=== PATIENT | female | born 1950 | race Caucasian/White ===

== ENCOUNTER → 2020-04-21 08:16 | Outpatient (CLI) | payer MEDICARE, OTHER, SELFPAY ==
--- NOTE | ~2020-04-21 | MM_ITS ---
EXAMINATION: MM screening [facility] w jaswant HISTORY: Screening TECHNIQUE: Craniocaudal and mediolateral oblique 3-D tomosynthesis images were obtained and synthetic 2-D images were generated. CAD analysis was submitted and interpreted. COMPARISON: Comparison to multiple prior studies sequentially, with oldest reviewed study dated 07/05. BREAST PARENCHYMAL COMPOSITION: There are scattered areas of fibroglandular density. FINDINGS: There is no evidence of suspicious mass, calcification, or architectural distortion to sugg est malignancy in either breast. There has been no suspicious interval change. IMPRESSION: 1. No mammographic evidence of malignancy. 2. Recommend routine screening mammography in one year. BI-RADS Category 1: Negative Reviewed, dictated and finalized at location A. [employer]
== END ==
PROVIDERS: PCP Family Medicine; Visit Provider Family Medicine
DX: Z12.31 Encounter for screening mammogram for malignant neoplasm of breast (principal)
CPT/HCPCS: 77063; 77067

== ENCOUNTER 2020-06-12 17:15 | Outpatient (CLI) | payer MEDICARE, OTHER, SELFPAY | END 2020-06-12 17:16 | disposition home or self-care (01) | LOC: ANHCOVIDVC 17:15 | PROVIDERS: PCP Family Medicine | DX: Z23 Encounter for immunization (principal) | CPT/HCPCS: 0001A; 91300 ==

== ENCOUNTER 2020-07-03 17:16 | Outpatient (CLI) | payer MEDICARE, OTHER, SELFPAY | END 2020-07-03 17:17 | disposition home or self-care (01) | LOC: ANHCOVIDVC 17:16 | PROVIDERS: PCP Family Medicine | DX: Z23 Encounter for immunization (principal) | CPT/HCPCS: 0002A; 91300 ==

== ENCOUNTER → 2021-07-11 16:19 | Outpatient (CLI) | payer MEDICARE, OTHER, SELFPAY ==
--- NOTE | ~2021-07-11 | MM_ITS ---
EXAMINATION: MM screening [facility] BI w jaswant HISTORY: Screening TECHNIQUE: Craniocaudal and mediolateral oblique 3-D tomosynthesis images were obtained and synthetic 2-D images were generated. CAD analysis was submitted and interpreted. COMPARISON: Comparison to multiple prior studies sequentially, with oldest reviewed study dated 07/05. BREAST PARENCHYMAL COMPOSITION: There are scattered areas of fibroglandular density. FINDINGS: There is no evidence of suspicious mass, calcification, or architectural distortion to sugg est malignancy in either breast. There has been no suspicious interval change. IMPRESSION: 1. No mammographic evidence of malignancy. 2. Recommend routine screening mammography in one year. BI-RADS Category 1: Negative Reviewed, dictated and finalized at location [facility].
== END ==
PROVIDERS: PCP Family Medicine; Visit Provider Family Medicine
DX: Z12.31 Encounter for screening mammogram for malignant neoplasm of breast (principal)
CPT/HCPCS: 77063; 77067

== ENCOUNTER 2021-08-18 09:15 | Emergency (ER) | payer MEDICARE, OTHER, SELFPAY ==
--- NOTE | ~2021-08-18 | XR_ITS ---
XR ribs RT 2V w CXR 2V DATE: 08/18/2021 09:43 INDICATION: Fall 4 days ago. New onset of cough, pain. Bruising. TECHNIQUE: 2 view chest. 3 views of right ribs. COMPARISON: None FINDINGS: Posterolateral mildly displaced right eighth and ninth rib fractures and nondisplaced poste rolateral right 10th rib fracture. There is right basilar infiltrate/atelectasis and mild right pleural effusion. No pneumothorax. The lungs otherwise appear clear. No left pleural effusion. Normal heart size. Aortic calcification and mild tortuosity. Diffuse osteopenia. Levoscoliosis and degenerative spurring of the thoracic spine. Osteophyte is at the glenohumeral joints. Synovial osteochondromatosis of the right shoulder. IMPRESSION: Posterolateral right eighth, ninth and 10th rib fractures Mild right basilar infiltrate or atelectasis and small right pleural effusion; no pneumothorax Reviewed, dictated and finalized at location A.
[2021-08-18 09:26] VITALS: BP 155/70; PULSE 85; RESP 16; TEMP 36.9; O2SAT 97
--- NOTE | 2021-08-18 10:05 | ED.FALL ---
HPI - Fall General Chief Complaint: Fall Stated Complaint: fall 4 days ago, rib pain Time Seen by Provider: 08/18/21 09:56 History of Present Illness HPI Narrative: 70-year-old female presents to the emergency room with complaints of a right lateral chest wall pain following a mechanical fall down a stair. Patient states 3 days ago she was walking down the stairs when she lost her footing, landing on her right lateral chest wall. Patient states the pain is worse when she is taking a deep breath and moving around. Denies shortness of breath or difficulty breathing. Related Data Home Medications Medication Instructions Recorded Confirmed lysine 500 mg tablet 500 mg PO DAILY 02/24/19 04/10/21 multivit with 1 tablet PO DAILY 02/24/19 04/10/21 axbhlrur-gfxa-TT-lutein 8 mg iron-400 mcg-300 mcg tablet fluticasone propionate 50 1 spray INTRANASAL BID 10/30/20 04/10/21 mcg/actuation nasal spray,suspension cholecalciferol (vitamin D3) 50 4,000 unit PO DAILY cap 04/10/21 04/10/21 mcg (2,000 unit) capsule Allergies Allergy/AdvReac Type Severity Reaction Status Date / Time No Known Allergies Allergy Verified 08/18/21 10:12 Review of Systems Review of Systems: CONSTITUTIONAL: Denies fever, chills, or sweats. EYES: Denies visual changes, redness, or discharge. ENT: Denies rhinorrhea, congestion, sore throat, or otalgia. CARDIOVASCULAR: Denies chest pain, palpitations, or edema. RESPIRATORY: Denies cough or dyspnea. GASTROINTESTINAL: Denies abdominal pain, nausea, vomiting, or diarrhea. GENITOURINARY: Denies dysuria or hematuria. SKIN: Denies rash or itching. MUSCULOSKELETAL: Reports right lateral rib pain NEUROLOGIC: Denies headache, numbness, dizziness, or weakness. PSYCHIATRIC: Denies anxiety or depression. [facility] Past Medical History Medical History Acute non-recurrent maxillary sinusitis Adult BMI 27.0-27.9 kg/sq m Breast cancer screening by mammogram Normal mammogram 07/11/2021. Chronic anxiety Contact dermatitis due to plant Essential (primary) hypertension Family History Family History Sibling Diabetes mellitus Patient's sister is in good health Mother Patient's mother is , Onset Age: 81 Family history of malignant neoplasm of breast Father Family history of cardiovascular disease, Onset Age: 67 Hypertension Acute myocardial infarction Social History Social History Smoking status: Never smoker Alcohol intake: never Substance use: never Substance use type: does not use Exam Narrative: GENERAL: Well-appearing, well-nourished, and in no acute distress. HEAD: Normocephalic, atraumatic. EYES: PERRLA and EOMI. CHEST: Clear to auscultation. No respiratory distress. No wheezes rales or rhonchi. Tenderness over the right posterior lateral eighth through 10th ribs. No ecchymosis. No flail chest. HEART: Regular rate and rhythm. No murmur heard. Normal peripheral pulses. ABDOMEN: Soft, nontender, nondistended, normal active bowel sounds. EXTREMITIES: Normal range of motion. No edema. SKIN: Warm, dry, no rash. NEURO: No focal deficits. Alert and oriented x3. PSYCH: Normal mood and affect. Course Vital Signs Vital signs: Vital Signs Temperature 36.9 C 08/18/21 09:26 Pulse Rate 85 08/18/21 09:26 Respiratory Rate 16 08/18/21 09:26 Blood Pressure 155/70 H 08/18/21 09:26 Pulse Oximetry 97 08/18/21 09:26 Temperature 36.9 C 08/18/21 09:26 Pulse Rate 85 08/18/21 09:26 Respiratory Rate 16 08/18/21 09:26 Blood Pressure 155/70 H 08/18/21 09:26 Pulse Oximetry 97 08/18/21 09:26 Discharge Plan Discharge Clinical Impression: Multiple rib fractures Qualifiers: Encounter type: initial encounter Fracture type: closed Laterality: right Qualified Code(s): S22.41XA - Multiple fract
== END 2021-08-18 10:22 | disposition home or self-care (01) ==
PROVIDERS: Emergency Provider Nurse Practitioner Family; PCP Family Medicine
DX: S22.41XA Multiple fractures of ribs, right side, initial encounter for closed fracture (principal); I10 Essential (primary) hypertension; F41.9 Anxiety disorder, unspecified; W10.9XXA Fall (on) (from) unspecified stairs and steps, initial encounter
CPT/HCPCS: 71046; 71100; 99283

== ENCOUNTER 2021-11-29 01:42 | Day surgery (SDC) | payer MEDICARE, OTHER, SELFPAY ==
[2021-11-14 13:46] VITALS: BMI 26.6
--- NOTE | 2021-11-28 16:18 | PM.HPGS ---
History of Present Illness History of Present Illness Consent: Risks, benefits, and alternatives have been discussed and questions answered. Patient agrees to proceed with procedure. Chief complaint: hx colon ca Narrative: Rowena Paez is a 71 year old female referred for colon cancer screening. She was diagnosed with colon cancer about 20 years ago. Review of Systems Review of Systems: All systems reviewed & are unremarkable except as noted in HPI and below PMFSH Past Medical History Medical History Acute non-recurrent maxillary sinusitis Adult BMI 27.0-27.9 kg/sq m BMI 26.0-26.9,adult Breast cancer screening by mammogram Normal mammogram 07/11/2021. Chronic anxiety Contact dermatitis due to plant Essential (primary) hypertension Multiple fractures of ribs of right side (08/15/21) right posterior lateral rib fractures 8, 9, 10 08/15/2021. ER 08/19/2021. Overweight (BMI 25.0-29.9) Family History Family History Sibling Diabetes mellitus Patient's sister is in good health Mother Patient's mother is , Onset Age: 81 Family history of malignant neoplasm of breast Father Family history of cardiovascular disease, Onset Age: 67 Hypertension Acute myocardial infarction Social History Social History Smoking status: Never smoker Alcohol intake: never Substance use: never Substance use type: does not use Living arrangements: with family Spiritual care concerns: No Meds Home Medications and Allergies Home Medications Medication Instructions Recorded Confirmed Type lysine 500 mg tablet (L-Lysine) 500 mg PO DAILY 02/24/19 11/29/21 History multivit with 1 tablet PO DAILY 02/24/19 11/29/21 History uvtxxqwq-amcs-DI-lutein 8 mg iron-400 mcg-300 mcg tablet (Centrum Silver Women) bupropion HCl 150 mg 24 hr tablet, 150 mg PO QAM #90 tabs 01/29/21 11/29/21 Rx extended release (Wellbutrin XL) escitalopram oxalate 10 mg tablet 10 mg PO DAILY #90 tabs 01/29/21 11/29/21 Rx (Lexapro) cholecalciferol (vitamin D3) 50 4,000 unit PO DAILY 04/10/21 11/29/21 History mcg (2,000 unit) capsule quetiapine 25 mg tablet (Seroquel) 25 mg PO QHS #90 tabs 06/04/21 11/29/21 Rx pravastatin 40 mg tablet 40 mg PO DAILY #90 tabs 07/28/21 11/29/21 Rx triamcinolone acetonide 55 mcg 1 spray intranasal DAILY 10/22/21 11/29/21 History nasal spray aerosol (Nasacort Allergy) Allergies Allergy/AdvReac Type Severity Reaction Status Date / Time No Known Allergies Allergy Verified 11/29/21 07:55 Exam Const: General: alert Orientation/consciousness: patient oriented x3 Resp: Auscultation: clear to auscultation bilaterally Cardio: Rhythm: regular rhythm GI: GI Palp: Yes Soft to palpation and No Tenderness to palpation present (GI) Neuro: General: patient oriented x3 Assessment and Plan Assessment and plan (1) Colon cancer screening: Code(s): Z12.11 - Encounter for screening for malignant neoplasm of colon Status: Acute Assessment and Plan: Colonoscopy with possible biopsy or polypectomy or cautery or injection of substances. (2) History of colon cancer: Code(s): Z85.038 - Personal history of other malignant neoplasm of large intestine Status: Acute
[2021-11-29 07:48] VITALS: BP 149/72; PULSE 74; RESP 18; TEMP 36.3; O2SAT 97; BMI 25.4
[2021-11-29] MEDS: LACTATED RINGERS 1,000 ML 150 ML IV CONT (08:08)
--- NOTE | 2021-11-29 08:25 | WPDANESEPPF ---
Anes - Initial Pre Proc Eval Procedure: Operation Date: 11/29/21 09:00 Proposed Procedures p Screening Colonoscopy - Armando Roberson MD Date/Time: 11/29/21 08:25 Surgeon: Armando Roberson MD Pre Op Diagnosis: hx colon ca Patient Data Age: 71 Gender: F Height: 1.55 m Weight: 61.1 kg Last Vital Signs Temp 97.3 F L 11/29/21 07:48 Pulse 74 11/29/21 07:48 Resp 18 11/29/21 07:48 BP 149/72 H 11/29/21 07:48 Pulse Ox 97 11/29/21 07:48 O2 Del Method Room Air 11/29/21 07:48 Allergies Allergy/AdvReac Type Severity Reaction Status Date / Time No Known Allergies Allergy Verified 11/29/21 07:55 Home Medications Medication Instructions Recorded Confirmed Type lysine 500 mg tablet (L-Lysine) 500 mg PO DAILY 02/24/19 11/29/21 History multivit with 1 tablet PO DAILY 02/24/19 11/29/21 History odllahum-pona-LC-lutein 8 mg iron-400 mcg-300 mcg tablet (Centrum Silver Women) bupropion HCl 150 mg 24 hr tablet, 150 mg PO QAM #90 tabs 01/29/21 11/29/21 Rx extended release (Wellbutrin XL) escitalopram oxalate 10 mg tablet 10 mg PO DAILY #90 tabs 01/29/21 11/29/21 Rx (Lexapro) cholecalciferol (vitamin D3) 50 4,000 unit PO DAILY 04/10/21 11/29/21 History mcg (2,000 unit) capsule quetiapine 25 mg tablet (Seroquel) 25 mg PO QHS #90 tabs 06/04/21 11/29/21 Rx pravastatin 40 mg tablet 40 mg PO DAILY #90 tabs 07/28/21 11/29/21 Rx triamcinolone acetonide 55 mcg 1 spray intranasal DAILY 10/22/21 11/29/21 History nasal spray aerosol (Nasacort Allergy) Patient hx anesthesia problems: none Family hx anesthesia problems: none Results Review: All pre-operative results and documents have been reviewed as part of the pre-operative evaluation. [facility] Past Medical History Medical History Acute non-recurrent maxillary sinusitis Adult BMI 27.0-27.9 kg/sq m BMI 26.0-26.9,adult Breast cancer screening by mammogram Normal mammogram 07/11/2021. Chronic anxiety Contact dermatitis due to plant Essential (primary) hypertension Multiple fractures of ribs of right side (08/15/21) right posterior lateral rib fractures 8, 9, 10 08/15/2021. ER 08/19/2021. Overweight (BMI 25.0-29.9) Family History Family History Sibling Diabetes mellitus Patient's sister is in good health Mother Patient's mother is , Onset Age: 81 Family history of malignant neoplasm of breast Father Family history of cardiovascular disease, Onset Age: 67 Hypertension Acute myocardial infarction Social History Social History Smoking status: Never smoker Alcohol intake: never Substance use: never Substance use type: does not use Living arrangements: with family Spiritual care concerns: No Anes - Eval Final PreProcedure Day of Procedure 11/29/21 08:25 Patient weight: normal Heart: regular rate and rhythm Lungs: clear to auscultation Airway: Mallampati scale class II Neurological: alert and oriented Last oral intake: >/= 8 hours ASA classification: II Emergent: no Anesthetic plan: proceed Anesthesia type and monitoring: general GIVS and standard monitoring Results Review: All pre-operative results and documents have been reviewed as part of the pre-operative evaluation. Informed Consent: The patient's anesthetic plan and its attendant risks and benefits were discussed with the patient/family/POA. Questions were solicited and answers provided to the satisfaction of the patient/family/POA.
[2021-11-29 09:09] VITALS: BP 114/89; PULSE 70; RESP 20; O2SAT 98
[2021-11-29 09:19] VITALS: BP 109/74; PULSE 62; RESP 21; O2SAT 100
[2021-11-29 09:29] VITALS: BP 146/81; PULSE 64; RESP 20; O2SAT 100
== END 2021-11-29 09:43 | disposition home or self-care (01) ==
PROVIDERS: PCP Family Medicine; Visit Provider Internal Medicine Gastroenterology
PROC: 0DJD8ZZ Inspection of Lower Intestinal Tract, Via Natural or Artificial Opening Endoscopic (ICD-10-PCS; CPT 45378; principal; 2021-11-29 09:00)
DX: Z12.11 Encounter for screening for malignant neoplasm of colon (principal); K62.1 Rectal polyp; Z85.038 Personal history of other malignant neoplasm of large intestine; Z98.0 Intestinal bypass and anastomosis status; K57.30 Diverticulosis of large intestine without perforation or abscess without bleeding; F41.9 Anxiety disorder, unspecified; I10 Essential (primary) hypertension
CPT/HCPCS: G0105; 88305; J2704; J7120

== ENCOUNTER 2022-09-07 19:36 | Inpatient (IN) | payer MEDICARE, OTHER, SELFPAY ==
[2022-09-07] VITALS (7 sets, daily range): BP systolic 121–153; BP diastolic 59–73; PULSE 61–80; RESP 18–23; TEMP 36.3; O2SAT 96–97
--- NOTE | ~2022-09-07 | XR_ITS ---
Supine and upright views of the abdomen Clinical history: Small bowel obstruction COMPARISON: 09/08/2022 Findings: NG tube in place. Bowel gas pattern is nonspecific. No evidence for obstruction or free air . No abnormal mass lesion or calcification is seen. Osseous structures are intact. Impression: NG tube in place. Nonspecific bowel gas pattern. Reviewed, dictated and finalized at [facility]. Impression: NG tube in place. Nonspecific bowel gas pattern.
--- NOTE | ~2022-09-07 | XR_ITS ---
Supine and upright views of the abdomen Clinical history: Small bowel obstruction COMPARISON: 09/10/2022 Findings: Bowel gas pattern is nonspecific. No evidence for obstruction or free air. No abnormal mass lesion or calcification is seen. Osseous structures are intact. Impression: No significant abnormality is seen. Reviewed, dictated and finalized at [facility]. Impression: No significant abnormality is seen.
--- NOTE | ~2022-09-07 | XR_ITS ---
XR abdomen NG/feed tube rechec DATE: 09/08/2022 08:45 INDICATION: Repositioning of NG tube TECHNIQUE: Portable supine AP view on 09/08/2022 0837 hours COMPARISON: 09/08/2022 KUB FINDINGS: The NG tube has been further retracted, with the distal tip now directed distally, only 3 c m approximately on the diaphragmatic hiatus. The proximal side-port is in the lower thorax. Further a dvancement of the tube is recommended. IMPRESSION: Further advancement of the NG tube is recommended; the NG tube tip no longer is directed cephalad in the distal esophagus Reviewed, dictated and finalized at [facility]. Reviewed, dictated and finalized at location [facility].
--- NOTE | ~2022-09-07 | XR_ITS ---
Supine portable view of the abdomen Clinical history: Small bowel obstruction COMPARISON: 09/09/2022 Findings: NG tube is in place. Bowel gas pattern is nonspecific. No evidence for obstruction or free air. No abnormal mass lesion or calcification is seen. Osseous structures are intact. Impression: NG tube in place. Nonspecific bowel gas pattern. Reviewed, dictated and finalized at [facility]. Impression: NG tube in place. Nonspecific bowel gas pattern.
--- NOTE | ~2022-09-07 | XR_ITS ---
EXAMINATION: XR sm bowel follow through DATE: 09/10/2022 09:20 INDICATION: Small bowel obstruction. TECHNIQUE: Oral contrast was administered, and a time course of radiographs of the abdomen was obtain ed. Fluoroscopy of the small bowel was performed. Fluoroscopy exposure time was 0.1 minutes. The tota l number of images was 8. COMPARISON: CT abdomen and pelvis 09/07/2022 FINDINGS: The nasogastric tube tip is in the stomach. There are no dilated loops of bowel. There is no mass or stricture. Transit time from the stomach to colon was approximately 30 minutes. IMPRESSION: 1. Normal small bowel series. Reviewed, dictated and finalized at location [facility].
--- NOTE | ~2022-09-07 | XR_ITS ---
XR abdomen NG/feed tube insert DATE: 09/08/2022 03:11 INDICATION: NG tube position check TECHNIQUE: Portable upright AP view on 09/08/2022 at 0305 hours COMPARISON: None FINDINGS: The nasogastric tube enter the stomach and then turns superiorly, with the distal tip reent ering the very distal esophagus, directed cephalad. The proximal side-port is in the stomach. Slight retraction of the NG tube is recommended. IMPRESSION: Recommend slight retraction of the NG tube Reviewed, dictated and finalized at [facility]. Reviewed, dictated and finalized at location [facility].
--- NOTE | ~2022-09-07 | CT_ITS ---
EXAMINATION: CT abdomen pelvis w con DATE: 09/07/2022 22:11 INDICATION: Generalized abdominal pain TECHNIQUE: Computed tomography (CT) of the abdomen and pelvis was performed with 100 CC Omnipaque 350 intravenous contrast. Automated exposure control and iterative reconstruction technique were employe d. Exam dose: 431.27 mGy-cm total exam DLP. COMPARISON: 06/24/2018 CT abdomen pelvis FINDINGS: Again noted is subtotal colectomy with ileosigmoid anastomosis no evidence of obstruction a t the anastomotic site. Small bowel is dilated up to approximately 2.5 cm, with fecal-like content small bowel proximal to th e partial obstruction in the right lower quadrant. There is mild fluid in the accumulation between lo ops of small bowel in the right abdomen, particularly near the area of small bowel partial obstructio n in the right lower quadrant. There is mild fluid collection in the right paracolic gutter and Jhon on's pouch. The distal small bowel is decompressed. Heart size is within normal range. No pericardial or pleural effusion. Bibasilar lower lobe discoid a telectasis. The liver, gallbladder, spleen, pancreas and bile and pancreatic ducts are unremarkable. Normal morphology of the adrenal glands. Occasional bilateral renal cysts, largest on the left, measuring 7.5 mm. There is nonspecific mild le ft hydroureter. No urinary tract calculus is noted. The urinary bladder, uterus and adnexal areas are unremarkable. IMPRESSION: Right lower quadrant small bowel partial obstruction, with some fluid between small laila l segments, without small bowel fluid collection in the right paracolic gutter and Morison's pouch Status post subtotal colectomy with ileosigmoid anastomosis, without obstruction at the anastomotic s ite Small sliding hiatal hernia Reviewed, dictated and finalized at [facility]. Reviewed, dictated and finalized at location [facility]. IMPRESSION: Right lower quadrant small bowel partial obstruction, with some fl uid between small bowel segments, without small bowel fluid collection in the r ight paracolic gutter and Morison's pouch Status post subtotal colectomy with ileosigmoid anastomosis, without obstructio n at the anastomotic site Small sliding hiatal hernia
--- NOTE | ~2022-09-07 | XR_ITS ---
XR abdomen NG/feed tube rechec DATE: 09/08/2022 10:20 INDICATION: NG tube readjustment TECHNIQUE: Portable supine AP view on 09/2022 at 1014 hours COMPARISON: 09/2022 portable KUB at 0837 hours FINDINGS: Tip of the NG tube is now present in the mid to lower body of the stomach, the proximal willi e-port approximately 3.5-4 cm distal to the diaphragmatic hiatus. IMPRESSION: Satisfactory repositioning of NG tube Reviewed, dictated and finalized at [facility]. Reviewed, dictated and finalized at location [facility].
--- NOTE | ~2022-09-07 | XR_ITS ---
XR abdomen NG/feed tube rechec DATE: 09/08/2022 08:00 INDICATION: NG tube repositioning TECHNIQUE: Portable supine AP view on 09/2022 at 0757 hours COMPARISON: Portable KUB on 09/2022 at 0305 hours FINDINGS: The NG tube has been partially retracted with a smaller loop in the proximal stomach, but t he distal tip of the esophagus is still directed cephalad in the very distal esophagus IMPRESSION: Distal tip of NG tube is still directed cephalad in the distal esophagus. Repositioning i s still necessary. Reviewed, dictated and finalized at [facility]. Reviewed, dictated and finalized at [facility]. IMPRESSION: Distal tip of NG tube is still directed cephalad in the distal esop hagus. Repositioning is still necessary.
[2022-09-07] MEDS: SODIUM CHLORIDE 0.9% IV 1,000 ML 999 ML IV CONT (20:50)
[2022-09-07] MEDS: MORPHINE SULFATE (*CRX) 2 MG/ML INJ (20:52)
[2022-09-07] MEDS: ONDANSETRON INJ 4 MG/2 ML VIAL IV PUSH (20:53)
--- NOTE | 2022-09-07 20:54 | PC.NURSE ---
2052 Used 2 mg concentration instead of pulling 4 mg/ml and wasting 2 mg.
[2022-09-07 21:08] LABS: Appearance Urine Cloudy (Clear); Bacteria Urine None Seen /hpf; Bilirubin Urine Negative (Negative); Blood Urine Negative (Negative); Color Urine Yellow (Yellow); Glucose Urine UA Negative (Negative); Ketones Urine Negative (Negative); Leukocyte Esterase Ur 1+ LEU/UL (Negative); Nitrate Urine Negative (Negative); Non Pathogenic Casts 0-2; Protein Urine Negative (Negative); RBC Urine 0-2 /hpf (0-2); Specific Grav Ur 1.018 (1.001-1.035); Squamous Epithelial Cell Urine None seen /hpf (Few); Urobilinogen Urine 0.2 mg/dL (<2.0); pH Urine 5.5 (5.0-9.0)
[2022-09-07 21:17] LABS: Add Urine Microscopic? YES
[2022-09-07 21:21] LABS: Alanine Aminotransferase 27 U/L (6-35); Albumin Level 4.4 g/dL (3.5-5.1); Alkaline Phosphatase 66 U/L (38-126); Anion Gap 3 mmol/L (8-16); Aspartate Amino Transferase 35 U/L (14-36); Bilirubin,Total 0.7 mg/dL (0.2-1.3); Blood Urea Nitrogen 18 mg/dL (7-17); Calcium 9.4 mg/dL (8.4-10.2); Carbon Dioxide 30 mmol/L (22-30); Chloride 105 mmol/L (98-107); Estimated CRCL calculation 61 ml/min; Estimated Glomerular Filt Rate > 60; Glucose 95 mg/dL (65-110); Lipase 64 U/L (23-300); Magnesium 2.2 mg/dL (1.6-2.3); Potassium 4.2 mmol/L (3.4-5.0); Sodium 138 mmol/L (137-145)
[2022-09-07 21:33] LABS: Basophils Absolute Auto 0.1 K/mm3 (0.0-0.1); Basophils Percent Auto 0.6 % (0.2-1.2); Eosinophils Absolute Auto 0.1 K/mm3 (0-0.3); Eosinophils Percent Auto 0.5 % (0-4.4); Hematocrit 39.3 % (37.0-47.0); Hemoglobin 13.4 g/dL (12.0-15.0); Immature Granulocyte Absolute 0.03 K/mm3 (0.00-0.031); Immature Granulocyte Percent A 0.3 % (0-0.5); Lymphocytes Absolute Auto 1.69 K/mm3 (0.9-3.2); Lymphocytes Percent Auto 16.8 % (18.3-44.2); Mean Corpuscular HGB Conc 34.1 g/dl (32-36); Mean Corpuscular Hemoglobin 31.6 pg (26-34); Mean Corpuscular Volume 92.7 fl (80-100); Mean Platelet Volume 10.8 fl (7.4-10.4); Monocytes Absolute Auto 0.6 K/mm3 (0.1-0.6); Monocytes Percent Auto 6.3 % (2.6-8.5); Neutrophils Absolute Auto 7.6 K/mm3 (1.3-6.7); Neutrophils Percent Auto 75.5 % (45.5-73.1); Platelet Count Result 210 k/mm3 (150-375); Red Blood Count 4.24 M/mm3 (4.2-5.4); Red Cell Distribution Width 12.6 % (11.5-14.5); White Blood Count 10.1 K/mm3 (4.5-10.0)
--- NOTE | 2022-09-07 23:55 | ED.GENADULT ---
HPI - General Adult General Chief complaint: Abdominal Pain Stated complaint: abdominal pain Time Seen by Provider: 09/07/22 20:13 History of Present Illness HPI narrative: Patient is a 71-year-old female who presents the emergency department with chief complaint of abdominal pain. Patient reports she is had multiple abdominal surgeries before in the past and reports that she had a small bowel obstruction and a lysis of adhesion. Patient reports that she started having a discomfort this morning reports that her last bowel movement was this morning and reports has had several other little small on large bowel movements. Patient reports that she has not been passing gas reports that she has had no vomiting but has had some nausea. Patient reports this feels similar to whenever she had an obstruction in the past Related Data Home Medications Medication Instructions Recorded Confirmed lysine 500 mg tablet (L-Lysine) 500 mg PO DAILY 02/24/19 04/23/22 multivit with 1 tablet PO DAILY 02/24/19 04/23/22 aaeeegmk-kayz-KI-lutein 8 mg iron-400 mcg-300 mcg tablet (Centrum Silver Women) triamcinolone acetonide 55 mcg 1 spray intranasal DAILY 10/22/21 04/23/22 nasal spray aerosol (Nasacort Allergy) cholecalciferol (vitamin D3) 50 2,000 unit PO DAILY 04/23/22 04/23/22 mcg (2,000 unit) capsule famotidine 20 mg tablet 20 mg PO DAILY PRN reflux 04/23/22 Allergies Allergy/AdvReac Type Severity Reaction Status Date / Time No Known Allergies Allergy Verified 11/29/21 07:55 Review of Systems Review of Systems: A 10 system review of systems was completed on the patient and is negative except for what is stated in the HPI. Nursing and ancillary documentation was reviewed. [facility] Past Medical History Medical History Acute non-recurrent maxillary sinusitis Adult BMI 27.0-27.9 kg/sq m At moderate risk for fall (~08/2021) fell on stairs. BMI 26.0-26.9,adult Breast cancer screening by mammogram Normal mammogram 07/11/2021. Chronic anxiety Colon polyp, hyperplastic (11/29/21) rectal polyps 11/29/2021 with recheck in 5 years. Contact dermatitis due to plant COVID-19 (04/03/22) tested positive 04/04/2022. Paxlovid 04/05/2022. Essential (primary) hypertension GERD (gastroesophageal reflux disease) (~03/2022) Multiple fractures of ribs of right side (08/15/21) right posterior lateral rib fractures 8, 9, 10 08/15/2021. ER 08/19/2021. Overweight (BMI 25.0-29.9) Family History Family History Sibling Diabetes mellitus Patient's sister is in good health Mother Patient's mother is , Onset Age: 81 Family history of malignant neoplasm of breast Father Family history of cardiovascular disease, Onset Age: 67 Hypertension Acute myocardial infarction Social History Social History Smoking status: Never smoker Alcohol intake: never Substance use: never Substance use type: does not use Lack of Transportation: No Lack of Food: Never True Current Housing: I Have Housing Concerned About Future Housing: No Difficulty Paying Gas/Electric Bills: No Difficulty Paying for Meds: No Currently Unemployed: No Education: High School Diploma/GED Difficulty w/ Childcare or Family Care: No Living arrangements: with family Spiritual care concerns: No Exam Narrative: GENERAL: Well-appearing, well-nourished, and in no acute distress. HEAD: Normocephalic, atraumatic. EYES: PERRLA and EOMI. ENT: Nares clear, no rhinorrhea or epistaxis. Mucous membranes moist. NECK: Supple. CHEST: Clear to auscultation. No respiratory distress. HEART: Regular rate and rhythm. No murmur heard. Normal peripheral pulses. ABDOMEN: Soft, diffuse mild tenderness, nondistended, normal active bowel sounds. EXTREMITIES: Norm
[2022-09-08] VITALS (10 sets, daily range): BP systolic 105–131; BP diastolic 56–67; PULSE 65–79; RESP 16–18; TEMP 36.1–37.1; O2SAT 91–97; BMI 26.4
[2022-09-08] MEDS: MORPHINE SULFATE (*CRX) 4 MG/ML INJ IV PUSH (00:48)
--- NOTE | 2022-09-08 01:36 | PM.IMHP ---
H&P: HPI History of Present Illness Date/Time: 09/08/22 01:36 Chief Complaint: Abdominal pain Narrative: This is a 71-year-old female with past medical history significant for colon cancer, status post partial colectomy, patient presents to the emergency room due to abdominal pain localized to the periumbilical area cramping in nature had been in her usual state of health up until after lunch, had a bowel movement and he was her usual earlier in the morning. Denies any nausea or vomiting has not been able to pass gas. Preliminary workup was significant for small-bowel obstruction Review of Systems Review of Systems: Abdominal pain, constipation. Constitutional: Constitutional: Denies chills, Denies fatigue, Denies fever(s), Denies malaise, Denies night sweats, Denies poor appetite and Denies weakness Eyes: Eyes: Denies change in vision ENT: Denies dysphagia, Denies vertigo, Denies dizziness and Denies odynophagia Cardiovascular: Cardiovascular: Denies chest pain, Denies radiating jaw, neck or arm pain and Denies palpitations Respiratory: Respiratory: Denies chest congestion, Denies cough and Denies excessive phlegm production Gastrointestinal: Gastrointestinal: Reports abdominal pain, Denies melena, Reports bloating, Denies hematochezia, Denies coffee ground emesis, Reports constipation, Reports GI cramping, Denies dyspepsia, Denies heartburn, Denies diarrhea, Denies nausea and Denies vomiting Genitourinary: Genitourinary: Denies dysuria and Denies flank pain Musculoskeletal: Musculoskeletal: Denies back pain and Denies myalgias Integumentary/Breasts: Skin/Breast: Denies rash Neurologic: Denies focal weakness and Denies Sensory deficit (Neuro) Psychiatric: Psychiatric: Reports no additional psychiatric complaints and Reports as per HPI Endocrine: Endocrine: Denies cold intolerance, Denies flushing, Denies heat intolerance, Denies polyphagia, Denies polydipsia and Denies palpitations Hematologic/Lymphatic: Hematologic/Lymphatic: Reports no additional hematologic/lymphatic complaints and Reports as per HPI Allergic/Immunologic: Allergic/Immunologic: Reports no additional allergic/immunologic complaints and Reports as per HPI PMFSH Past Medical History Medical History Acute non-recurrent maxillary sinusitis Adult BMI 27.0-27.9 kg/sq m At moderate risk for fall (~08/2021) fell on stairs. BMI 26.0-26.9,adult Breast cancer screening by mammogram Normal mammogram 07/11/2021. Chronic anxiety Colon polyp, hyperplastic (11/29/21) rectal polyps 11/29/2021 with recheck in 5 years. Contact dermatitis due to plant COVID-19 (04/03/22) tested positive 04/04/2022. Paxlovid 04/05/2022. Essential (primary) hypertension GERD (gastroesophageal reflux disease) (~03/2022) Multiple fractures of ribs of right side (08/15/21) right posterior lateral rib fractures 8, 9, 10 08/15/2021. ER 08/19/2021. Overweight (BMI 25.0-29.9) Family History Family History Sibling Diabetes mellitus Patient's sister is in good health Mother Patient's mother is , Onset Age: 81 Family history of malignant neoplasm of breast Father Family history of cardiovascular disease, Onset Age: 67 Hypertension Acute myocardial infarction Social History Social History Smoking status: Never smoker Alcohol intake: never Substance use: never Substance use type: does not use Lack of Transportation: No Lack of Food: Never True Current Housing: I Have Housing Concerned About Future Housing: No Difficulty Paying Gas/Electric Bills: No Difficulty Paying for Meds: No Currently Unemployed: No Education: High School Diploma/GED Difficulty w/ Childcare or Family Care: No Living arrangements: with family Spiritual care concerns: No
--- NOTE | 2022-09-08 04:26 | ADMGEN ---
This patient, Rowena Paez, was admitted to 3 Med Surg Room 307-01. Patient/family oriented to hospital policies and general routines including ID bracelet, bed and alarms, visiting hours, pain management, procedures, bathroom and other care routines, personal items, smoking policy, room service/diet, and visiting hours. Information on how to activate the Rapid Response Team has been discussed. Patient/Family are encouraged to report perceived risks to care and to ask questions if they do not understand what they are told or what they should do.
[2022-09-08] MEDS: SODIUM CHLORIDE 0.9% IV 1,000 ML 125 ML IV CONT ×2 (04:52→12:00)
[2022-09-08 08:18] LABS: Hematocrit 41.5 % (37.0-47.0); Hemoglobin 13.7 g/dL (12.0-15.0); Mean Corpuscular Hemoglobin 30.9 pg (26-34); Mean Corpuscular Volume 93.5 fl (80-100); Mean Platelet Volume 10.8 fl (7.4-10.4); Platelet Count Result 219 k/mm3 (150-375); Red Blood Count 4.44 M/mm3 (4.2-5.4); Red Cell Distribution Width 12.7 % (11.5-14.5); White Blood Count 9.7 K/mm3 (4.5-10.0)
[2022-09-08 08:31] LABS: Anion Gap 5 mmol/L (8-16); Blood Urea Nitrogen 12 mg/dL (7-17); Calcium 8.2 mg/dL (8.4-10.2); Carbon Dioxide 27 mmol/L (22-30); Chloride 106 mmol/L (98-107); Estimated CRCL calculation 71 ml/min; Estimated Glomerular Filt Rate > 60; Glucose 112 mg/dL (65-110); Potassium 4.5 mmol/L (3.4-5.0); Sodium 138 mmol/L (137-145)
[2022-09-08] MEDS: ONDANSETRON INJ 4 MG/2 ML VIAL IV PUSH ×2 (08:32→16:56)
[2022-09-08] MEDS: MORPHINE SULFATE (*CRX) 4 MG/ML INJ 2 MG IV PUSH (08:32)
--- NOTE | 2022-09-08 10:15 | PM.IMPN ---
Progress Note: A&P Assessment and Plan (1) Small bowel obstruction: Code(s): K56.609 - Unspecified intestinal obstruction, unspecified as to partial versus complete obstruction Status: Acute Assessment and Plan: NPO, IV fluids, supportive care, NGT Appreciate general surgery consultation (2) Abdominal pain: Code(s): R10.9 - Unspecified abdominal pain Status: Acute Assessment and Plan: See above (3) GERD (gastroesophageal reflux disease): Onset Date: ~03/2022 Code(s): K21.9 - Gastro-esophageal reflux disease without esophagitis Status: Acute Assessment and Plan: PPI (4) History of colon cancer: Code(s): Z85.038 - Personal history of other malignant neoplasm of large intestine Status: Acute Assessment and Plan: Status post colectomy (5) Chronic depression: Code(s): F32.9 - Major depressive disorder, single episode, unspecified Status: Acute Assessment and Plan: On multiple psychiatric medications, will attempt to restart those as soon is able to do any kind of p.o. May need Haldol in place of Seroquel in the evenings Plan DVT prophylaxis with SCDs GI prophylaxis not indicated Code status full code Subjective Date/time seen: 09/08/22 10:15 Interval history: 71-year-old female with history of multiple abdominal surgeries including a recent partial colectomy is presenting with abdominal pain and being treated for an SBO. No overnight events noted. No chest pain or shortness of breath. No nausea, vomiting or diarrhea. No fevers or chills. NGT in place, patient states she feels a little better than yesterday. Small BM yesterday. Review of Systems Review of Systems: 12 point review of systems was assessed and was negative except as noted in the HPI Exam Narrative: General: No acute distress, alert and oriented per baseline, ngt in place to suction HEENT: Atraumatic, normocephalic, mucous membranes moist CV: Regular rate and rhythm, S1, S2 Lungs: Clear to auscultation bilaterally, no rales or crackles noted, no wheezes, good air entry Abdomen: Distended, hypoactive BS, mild ttp Extremities: Normal to inspection Skin: No rashes noted, no lesions or wounds seen Psych: Euthymic, normal affect Objective Data Vital Signs Vital Signs: Vital Signs - 24 hr 09/07/22 19:39 09/07/22 20:20 09/07/22 21:01 Temperature 97.3 F L Pulse Rate 66 61 74 Respiratory Rate 18 19 23 H Blood Pressure 152/73 H 153/64 H 121/59 L Pulse Oximetry 97 97 96 Oxygen Delivery Room Air Fraction of Inspired Oxygen 09/07/22 21:46 09/07/22 22:47 09/07/22 23:16 Temperature Pulse Rate 80 80 78 Respiratory Rate 19 19 18 Blood Pressure 130/61 136/59 L 136/69 Pulse Oximetry 96 96 97 Oxygen Delivery Fraction of Inspired Oxygen 09/07/22 23:31 09/08/22 01:15 09/08/22 01:00 Temperature Pulse Rate 78 73 72 Respiratory Rate 18 18 16 Blood Pressure 133/64 128/65 125/61 Pulse Oximetry 96 93 93 Oxygen Delivery Fraction of Inspired Oxygen 09/08/22 00:45 09/08/22 02:16 09/08/22 03:35 Temperature Pulse Rate 65 68 75 Respiratory Rate 16 17 16 Blood Pressure 128/67 131/64 105/59 L Pulse Oximetry 93 95 96 Oxygen Delivery Fraction of Inspired Oxygen 09/08/22 02:17 09/08/22 04:28 09/08/22 08:15 Temperature 97.0 F L Pulse Rate 68 79 Respiratory Rate 18 16 Blood Pressure 120/60 Pulse Oximetry 97 93 Oxygen Delivery Room Air Fraction of Inspired Oxygen 09/08/22 09:23 Temperature Pulse Rate Respiratory Rate Blood Pressure Pulse Oximetry 94 Oxygen Delivery Room Air Fraction of Inspired Oxygen 21 Intake/Output Intake/Output: Intake & Output 09/05/22 09/06/22 09/07/22 09/08/22 23:59 23:59 23:59 23:59 Intake Total 1000 0 Balance 1000 0 Meds/Results Medications: Active Medications Generic Name Dose Rou
--- NOTE | 2022-09-08 10:31 | PC.NURSE ---
Wound vac suction has been turned off since mold shifter, awaiting Dr. Nickerson to come assess pt. Dr. Nickerson on floor and spoke to this nurse at 1030 am, Dr. Nickerson states to leave the wound vac in place with suction off until wound care and Dr. Squires comes on friday. Dr. Nickerson states there is no active bleed and the wound vac in place is okay. Dr. Nickerson stated to keep an eye on the wound vac itself that is attached to pt and also the tubing. Family at bedside and spoke with Dr. Nickerson.
--- NOTE | 2022-09-08 14:42 | PM.CNGS ---
Assessment and Plan Assessment and plan (1) Small bowel obstruction: Code(s): K56.609 - Unspecified intestinal obstruction, unspecified as to partial versus complete obstruction Status: Acute Assessment and Plan: Feeling a little better and actually had a bowel movement early this morning. Continue NG tube, NPO except ice chips, serial exam and lab work as well as daily plain films of the abdomen. Hopefully will resolve without surgery. Discussed the plans with the patient. (2) History of total colectomy: Code(s): Z90.49 - Acquired absence of other specified parts of digestive tract Status: Chronic Assessment and Plan: Performed 2002. Had sigmoidoscopy November 2021 which showed 1 polyp in the rectum, benign (3) Colon cancer metastasized to lung: Code(s): C18.9 - Malignant neoplasm of colon, unspecified; C78.00 - Secondary malignant neoplasm of unspecified lung Status: Chronic Assessment and Plan: Resected about 10 years ago with no recurrence History of Present Illness Consult details Consult date: 09/08/22 Reason for consult: abdominal pain Requesting physician: Lai Loza MD Narrative: The patient is a 71-year-old woman who started having crampy abdominal pain yesterday. She has had bowel obstructions before and did wait long after this started as she recognized the symptoms. Her last small-bowel obstruction was treated nonsurgically and occurred about 5 years ago. She had some vomiting in addition to the pain. She came to the emergency room. Her vital signs were stable. She had mild diffuse tenderness and a nondistended abdomen. [place] [id number]. CT scan showed small bowel obstruction. Patient has an interesting history in that in March of 2002 she presented with an obstructing sigmoid colon cancer. She underwent sigmoidectomy with colostomy at that time. She then had a colonoscopy which showed a large villous adenoma in the ascending colon near the hepatic flexure. In late May 2002 she underwent completion total abdominal colectomy with ileorectal anastomosis. The patient has almost no colon. She did have a sigmoidoscopy done in November of 2021 which showed a small rectal polyp but no other pathology. She had a nasogastric tube placed. She still has some nausea but her abdominal pain is gone. Recent KUB shows the NG tube to be in good position in the stomach but it has not really been hooked to suction very long as she just got to the med surge floor about 4:00 a.m.. She is seen now in consultation. Review of Systems Review of Systems: All systems reviewed & are unremarkable except as noted in HPI and below (HPI and those items noted below) Constitutional: Constitutional: Denies chills and Denies fever(s) Cardiovascular: Cardiovascular: Denies chest pain, Denies diaphoresis, Denies dyspnea and Denies paroxysmal nocturnal dyspnea Respiratory: Respiratory: Denies chest congestion, Denies cough and Denies dyspnea Integumentary/Breasts: Skin/Breast: Denies lesions and Denies rash [facility] Past Medical History Medical History Acute non-recurrent maxillary sinusitis Adult BMI 27.0-27.9 kg/sq m At moderate risk for fall (~08/2021) fell on stairs. BMI 26.0-26.9,adult Breast cancer screening by mammogram Normal mammogram 07/11/2021. Chronic anxiety Colon polyp, hyperplastic (11/29/21) rectal polyps 11/29/2021 with recheck in 5 years. Contact dermatitis due to plant COVID-19 (04/03/22) tested positive 04/04/2022. Paxlovid 04/05/2022. Essential (primary) hypertension GERD (gastroesophageal reflux disease) (~03/2022) Multiple fractures of ribs of right side (08/15/21) right posterior lateral rib fractures 8, 9, 10 08/15/2021. ER 08/19/2021. Overweight (BMI 25.0-29.9) Surgical History Surgical History (Updated 09/08/22 @ 15:00 by Javier Nickerson MD) Colon cancer metast
[2022-09-08] MEDS: ENOXAPARIN 40 MG/0.4 ML SYRINGE SUB-Q (16:22)
[2022-09-09] MEDS: SODIUM CHLORIDE 0.9% IV 1,000 ML 125 ML IV CONT ×2 (01:01→09:14)
[2022-09-09 06:00] VITALS: BP 129/61; PULSE 59; RESP 18; TEMP 36.5; O2SAT 94
[2022-09-09 06:51] LABS: Hematocrit 38.4 % (37.0-47.0); Hemoglobin 12.6 g/dL (12.0-15.0); Mean Corpuscular HGB Conc 32.8 g/dl (32-36); Mean Corpuscular Hemoglobin 31.3 pg (26-34); Mean Corpuscular Volume 95.3 fl (80-100); Mean Platelet Volume 11.2 fl (7.4-10.4); Platelet Count Result 183 k/mm3 (150-375); Red Blood Count 4.03 M/mm3 (4.2-5.4); Red Cell Distribution Width 12.8 % (11.5-14.5); White Blood Count 7.4 K/mm3 (4.5-10.0)
[2022-09-09 07:02] LABS: Anion Gap 4 mmol/L (8-16); Blood Urea Nitrogen 8 mg/dL (7-17); Calcium 8.2 mg/dL (8.4-10.2); Carbon Dioxide 31 mmol/L (22-30); Chloride 107 mmol/L (98-107); Estimated CRCL calculation 61 ml/min; Estimated Glomerular Filt Rate > 60; Glucose 85 mg/dL (65-110); Potassium 3.4 mmol/L (3.4-5.0); Sodium 142 mmol/L (137-145)
--- NOTE | 2022-09-09 07:25 | PM.PNGS ---
Progress Note: A&P Assessment and Plan (1) Small bowel obstruction: Code(s): K56.609 - Unspecified intestinal obstruction, unspecified as to partial versus complete obstruction Status: Acute Assessment and Plan: Improving clinically and radiographically. NG output was high since midnight, 800 cc. Making good progress. Recheck exam, labs, imaging again tomorrow morning. (2) History of total colectomy: Code(s): Z90.49 - Acquired absence of other specified parts of digestive tract Status: Chronic (3) Colon cancer metastasized to lung: Code(s): C18.9 - Malignant neoplasm of colon, unspecified; C78.00 - Secondary malignant neoplasm of unspecified lung Status: Chronic Subjective Subjective Date/Time Seen: 09/09/22 07:25 Patient reports: no new complaints, pain is less, no flatus, no bowel movement and afebrile Review of Systems Review of Systems: All systems reviewed & are unremarkable except as noted in HPI and below (HPI and those items noted below) Constitutional: Constitutional: Denies chills and Denies fever(s) Cardiovascular: Cardiovascular: Denies chest pain, Denies diaphoresis, Denies dyspnea and Denies paroxysmal nocturnal dyspnea Respiratory: Respiratory: Denies chest congestion, Denies cough and Denies dyspnea Integumentary/Breasts: Skin/Breast: Denies lesions and Denies rash Exam Const: General: comfortable and no acute distress Orientation/consciousness: patient oriented x3 GI: Inspection: non-distended, scar and no visible herniation GI Palp: Yes Soft to palpation, Yes Tenderness to palpation present (GI) (Less tender, diffuse), No Guarding due to palpation present (GI), No Hernia present and No Rebound tenderness present Auscultation: Hypoactive bowel sounds present Neuro: General: patient oriented x3 and no focal motor deficits Extrem: General: no calf tenderness and no edema Psych: Affect: normal affect Insight: Good insight present (Psych) Judgement: Good judgement present (Psych) Objective Data Vital Signs Vital Signs: Vital Signs - 24 hr 09/08/22 08:15 09/08/22 09:23 09/08/22 14:00 Temperature 36.2 C L Pulse Rate 72 Respiratory Rate 18 Blood Pressure 118/56 L Pulse Oximetry 94 91 Oxygen Delivery Room Air Room Air Fraction of Inspired Oxygen 21 09/08/22 21:19 09/09/22 06:00 Temperature 37.1 C 36.5 C Pulse Rate 70 59 L Respiratory Rate 18 18 Blood Pressure 119/56 L 129/61 Pulse Oximetry 92 94 Oxygen Delivery Fraction of Inspired Oxygen Intake/Output Intake/Output: Intake & Output 09/06/22 09/07/22 09/08/22 09/09/22 23:59 23:59 23:59 23:59 Intake Total 1000 1000 1240 Output Total 400 800 Balance 1000 600 440 Meds/Results Medications: Active Medications Generic Name Dose Route Start Last Admin Trade Name Freq PRN Reason Stop Dose Admin Enoxaparin Sodium 40 mg 09/09/22 09:00 Enoxaparin 40 Mg/0.4 Ml Syringe SUB-Q DAILY TAYLOR Sodium Chloride 1,000 mls @ 125 mls/hr 09/08/22 01:40 09/09/22 01:01 Normal Saline Iv IV CONT 125 mls/hr .Q8H TAYLOR Administration Ibuprofen 800 mg in 200 mls @ 400 mls/hr 09/08/22 14:33 Caldolor 800 Mg/200 Ml IVPB Q6H PRN Pain Rated 1-3 Morphine Sulfate 2 mg 09/08/22 01:36 09/08/22 08:32 Morphine Sulfate (*Crx) 4 Mg/Ml Inj IV PUSH 2 mg Q2H PRN Administration Pain Rated 7-10 Morphine Sulfate 1 mg 09/08/22 14:33 Morphine Sulfate (*Crx) 2 Mg/Ml Inj IV PUSH Q2H PRN Pain Rated 4-6 Ondansetron HCl 4 mg 09/08/22 01:36 09/08/22 16:56 Ondansetron Inj 4 Mg/2 Ml Vial IV PUSH 4 mg Q4H PRN Administration Nausea Pantoprazole Sodium 40 mg 09/09/22 09:00 Pantoprazole Sodium Iv 40 Mg Vial IV PUSH QAM [facility] Radiology Results: ITS Impressions Abdomen/Pelvis CT 09/08/22 11:27 IMPRESSION: Right lower quadrant small bowel partial obstruction, with some fluid between small bowel segments,
[2022-09-09] MEDS: PANTOPRAZOLE SODIUM IV 40 MG VIAL IV PUSH (09:15)
[2022-09-09] MEDS: ENOXAPARIN 40 MG/0.4 ML SYRINGE SUB-Q (09:15)
--- NOTE | 2022-09-09 09:53 | PM.IMPN ---
Progress Note: A&P Assessment and Plan (1) Small bowel obstruction: Code(s): K56.609 - Unspecified intestinal obstruction, unspecified as to partial versus complete obstruction Status: Acute Assessment and Plan: NPO, IV fluids, supportive care, NGT Appreciate general surgery consultation Cont current management, recheck imaginy pending 09/10 per surgery consult Switch IVF to D5LR + KCl 20 mEq @ 150 ml/hr due to drop in potassium, increased sodium and concern for hypoglycemia (2) Abdominal pain: Code(s): R10.9 - Unspecified abdominal pain Status: Acute Assessment and Plan: See above (3) GERD (gastroesophageal reflux disease): Onset Date: ~03/2022 Code(s): K21.9 - Gastro-esophageal reflux disease without esophagitis Status: Acute Assessment and Plan: PPI (4) History of colon cancer: Code(s): Z85.038 - Personal history of other malignant neoplasm of large intestine Status: Acute Assessment and Plan: Status post colectomy (5) Chronic depression: Code(s): F32.9 - Major depressive disorder, single episode, unspecified Status: Acute Assessment and Plan: On multiple psychiatric medications, will attempt to restart those as soon is able to do any kind of p.o. May need Haldol in place of Seroquel in the evenings Plan DVT prophylaxis with SCDs GI prophylaxis not indicated Code status full code Subjective Date/time seen: 09/09/22 09:53 Interval history: 71-year-old female with history of multiple abdominal surgeries including a recent partial colectomy is presenting with abdominal pain and being treated for an SBO. No overnight events noted. No chest pain or shortness of breath. No nausea, vomiting or diarrhea. No fevers or chills. NGT in place, patient feels unchanged. Review of Systems Review of Systems: 12 point review of systems was assessed and was negative except as noted in the HPI Exam Narrative: General: No acute distress, alert and oriented per baseline, ngt in place to suction HEENT: Atraumatic, normocephalic, mucous membranes moist CV: Regular rate and rhythm, S1, S2 Lungs: Clear to auscultation bilaterally, no rales or crackles noted, no wheezes, good air entry Abdomen: Distended, hypoactive BS, mild ttp Extremities: Normal to inspection Skin: No rashes noted, no lesions or wounds seen Psych: Euthymic, normal affect Objective Data Vital Signs Vital Signs: Vital Signs - 24 hr 09/08/22 14:00 09/08/22 21:19 09/09/22 06:00 Temperature 97.2 F L 98.8 F 97.7 F Pulse Rate 72 70 59 L Respiratory Rate 18 18 18 Blood Pressure 118/56 L 119/56 L 129/61 Pulse Oximetry 91 92 94 Intake/Output Intake/Output: Intake & Output 09/06/22 09/07/22 09/08/22 09/09/22 23:59 23:59 23:59 23:59 Intake Total 1000 1000 2240 Output Total 400 800 Balance 0018 175 4355 Meds/Results Medications: Active Medications Generic Name Dose Route Start Last Admin Trade Name Freq PRN Reason Stop Dose Admin Enoxaparin Sodium 40 mg 09/09/22 09:00 09/09/22 09:15 Enoxaparin 40 Mg/0.4 Ml Syringe SUB-Q 40 mg DAILY TAYLOR Administration Sodium Chloride 1,000 mls @ 125 mls/hr 09/08/22 01:40 09/09/22 09:14 Normal Saline Iv IV CONT 125 mls/hr .Q8H TAYLOR Administration Ibuprofen 800 mg in 200 mls @ 400 mls/hr 09/08/22 14:33 Caldolor 800 Mg/200 Ml IVPB Q6H PRN Pain Rated 1-3 Morphine Sulfate 2 mg 09/08/22 01:36 09/08/22 08:32 Morphine Sulfate (*Crx) 4 Mg/Ml Inj IV PUSH 2 mg Q2H PRN Administration Pain Rated 7-10 Morphine Sulfate 1 mg 09/08/22 14:33 Morphine Sulfate (*Crx) 2 Mg/Ml Inj IV PUSH Q2H PRN Pain Rated 4-6 Ondansetron HCl 4 mg 09/08/22 01:36 09/08/22 16:56 Ondansetron Inj 4 Mg/2 Ml Vial IV PUSH 4 mg Q4H PRN Administration Nausea Pantoprazole Sodium 40 mg 09/09/22 09:00
[2022-09-09 14:00] VITALS: BP 134/50; PULSE 51; RESP 16; TEMP 36.6; O2SAT 98
[2022-09-09 21:53] VITALS: BP 127/50; PULSE 53; RESP 18; TEMP 36.8; O2SAT 94
[2022-09-10] MEDS: MORPHINE SULFATE (*CRX) 2 MG/ML INJ 1 MG IV PUSH (01:56)
[2022-09-10 06:00] VITALS: BP 137/60; PULSE 58; RESP 18; TEMP 36.7; O2SAT 95
--- NOTE | 2022-09-10 07:03 | PM.PNGS ---
Progress Note: A&P Assessment and Plan (1) Small bowel obstruction: Code(s): K56.609 - Unspecified intestinal obstruction, unspecified as to partial versus complete obstruction Status: Acute Assessment and Plan: Bowel function starting to return. Will go ahead and get water soluble contrast small-bowel series through the NG tube today. If passes through an appropriate time frame, will DC NG and start oral intake. (2) History of total colectomy: Code(s): Z90.49 - Acquired absence of other specified parts of digestive tract Status: Chronic (3) Frontal headache: Code(s): R51.9 - Headache, unspecified Status: Acute Assessment and Plan: Probably from NG tube. Will try some Toradol. If persists after NG tube removed, may need a decongestant such as Sudafed. Subjective Subjective Date/Time Seen: 09/10/22 07:03 Patient reports: still having pain (Complains of a frontal headache and aches all over, no abdominal pain), flatus, no bowel movement and afebrile Review of Systems Review of Systems: All systems reviewed & are unremarkable except as noted in HPI and below (HPI and those items noted below) Constitutional: Constitutional: Denies chills and Denies fever(s) Cardiovascular: Cardiovascular: Denies chest pain, Denies diaphoresis, Denies dyspnea and Denies paroxysmal nocturnal dyspnea Respiratory: Respiratory: Denies chest congestion, Denies cough and Denies dyspnea Integumentary/Breasts: Skin/Breast: Denies lesions and Denies rash Exam Const: General: cooperative, no acute distress, alert, awake and uncomfortable (Due to headache) Nutritional Appearance: average body habitus Orientation/consciousness: patient oriented x3 GI: Inspection: non-distended and scar GI Palp: Yes Soft to palpation, No Tenderness to palpation present (GI), No Guarding due to palpation present (GI) and No Rebound tenderness present Auscultation: Hypoactive bowel sounds present Neuro: General: patient oriented x3 and no focal motor deficits Extrem: General: no calf tenderness and no edema Psych: Affect: normal affect Insight: Good insight present (Psych) Judgement: Good judgement present (Psych) Objective Data Vital Signs Vital Signs: Vital Signs - 24 hr 09/09/22 14:00 09/09/22 21:53 09/10/22 06:00 Temperature 36.6 C 36.8 C 36.7 C Pulse Rate 51 L 53 L 58 L Respiratory Rate 16 18 18 Blood Pressure 134/50 L 127/50 L 137/60 Pulse Oximetry 98 94 95 Intake/Output Intake/Output: Intake & Output 09/07/22 09/08/22 09/09/22 09/10/22 23:59 23:59 23:59 23:59 Intake Total 1000 1000 3360 1000 Output Total 400 800 Balance 2001 013 8784 1000 Meds/Results Medications: Active Medications Generic Name Dose Route Start Last Admin Trade Name Freq PRN Reason Stop Dose Admin Acetaminophen 650 mg 09/10/22 07:03 Acetaminophen 650 Mg Suppository RECTAL Q6H PRN Mild Pain (1-3) or Fever Enoxaparin Sodium 40 mg 09/09/22 09:00 09/09/22 09:15 Enoxaparin 40 Mg/0.4 Ml Syringe SUB-Q 40 mg DAILY TAYLOR Administration Potassium Cl/Dextrose/Lact Ringer's 1,000 mls @ 80 mls/hr 09/09/22 11:00 09/10/22 02:35 Kcl 20 Meq/D5lr IV CONT 150 mls/hr .[id number] TAYLOR Administration Ketorolac Tromethamine 30 mg 09/10/22 07:01 Ketorolac 30 Mg/Ml Vial (*Bkc) IV PUSH Q6H PRN Headache Morphine Sulfate 2 mg 09/08/22 01:36 09/08/22 08:32 Morphine Sulfate (*Crx) 4 Mg/Ml Inj IV PUSH 2 mg Q2H PRN Administration Pain Rated 7-10 Morphine Sulfate 1 mg 09/08/22 14:33 09/10/22 01:56 Morphine Sulfate (*Crx) 2 Mg/Ml Inj IV PUSH 1 mg Q2H PRN Administration Pain Rated 4-6 Ondansetron HCl 4 mg 09/08/22 01:36 09/08/22 16:56 Ondansetron Inj 4 Mg/2 Ml Vial IV PUSH 4 mg Q4H PRN Administration Nausea Pantoprazole Sodium 40 mg 09/09/22 09:00 09/09/22 09:15 Pantoprazole Sodium Iv 40 Mg Vial IV PUSH 40 mg QAM TAYLOR Administ
[2022-09-10 08:00] LABS: Hematocrit 36.8 % (37.0-47.0); Hemoglobin 12.2 g/dL (12.0-15.0); Mean Corpuscular HGB Conc 33.2 g/dl (32-36); Mean Corpuscular Hemoglobin 31.5 pg (26-34); Mean Corpuscular Volume 95.1 fl (80-100); Mean Platelet Volume 11.7 fl (7.4-10.4); Platelet Count Result 178 k/mm3 (150-375); Red Blood Count 3.87 M/mm3 (4.2-5.4); Red Cell Distribution Width 12.7 % (11.5-14.5); White Blood Count 10.6 K/mm3 (4.5-10.0)
[2022-09-10 08:13] LABS: Anion Gap 3 mmol/L (8-16); Blood Urea Nitrogen 3 mg/dL (7-17); Calcium 8.2 mg/dL (8.4-10.2); Carbon Dioxide 28 mmol/L (22-30); Chloride 106 mmol/L (98-107); Estimated CRCL calculation 71 ml/min; Estimated Glomerular Filt Rate > 60; Glucose 158 mg/dL (65-110); Potassium 3.6 mmol/L (3.4-5.0); Sodium 137 mmol/L (137-145)
[2022-09-10] MEDS: KETOROLAC 30 MG/ML VIAL (*BKC) IV PUSH (08:34)
[2022-09-10] MEDS: ONDANSETRON INJ 4 MG/2 ML VIAL IV PUSH (08:34)
[2022-09-10] MEDS: ENOXAPARIN 40 MG/0.4 ML SYRINGE SUB-Q (09:31)
[2022-09-10] MEDS: PANTOPRAZOLE SODIUM IV 40 MG VIAL IV PUSH (09:31)
--- NOTE | 2022-09-10 11:48 | PM.IMPN ---
Progress Note: A&P Assessment and Plan (1) Small bowel obstruction: Code(s): K56.609 - Unspecified intestinal obstruction, unspecified as to partial versus complete obstruction Status: Acute Assessment and Plan: Good po intake Appreciate general surgery consultation, SBFT wnl (2) Abdominal pain: Code(s): R10.9 - Unspecified abdominal pain Status: Acute Assessment and Plan: See above (3) GERD (gastroesophageal reflux disease): Onset Date: ~03/2022 Code(s): K21.9 - Gastro-esophageal reflux disease without esophagitis Status: Acute Assessment and Plan: PPI (4) History of colon cancer: Code(s): Z85.038 - Personal history of other malignant neoplasm of large intestine Status: Acute Assessment and Plan: Status post colectomy (5) Chronic depression: Code(s): F32.9 - Major depressive disorder, single episode, unspecified Status: Acute Assessment and Plan: On multiple psychiatric medications, will attempt to restart those as soon is able to do any kind of p.o. May need Haldol in place of Seroquel in the evenings Plan DVT prophylaxis with SCDs GI prophylaxis not indicated Code status full code Subjective Date/time seen: 09/10/22 11:48 Interval history: 71-year-old female with history of multiple abdominal surgeries including a recent partial colectomy is presenting with abdominal pain and being treated for an SBO. No overnight events noted. No chest pain or shortness of breath. No nausea, vomiting or diarrhea. No fevers or chills. NGT removed, diet advanced, patient tolerating po. Review of Systems Review of Systems: 12 point review of systems was assessed and was negative except as noted in the HPI Exam Narrative: General: No acute distress, alert and oriented per baseline, ngt in place to suction HEENT: Atraumatic, normocephalic, mucous membranes moist CV: Regular rate and rhythm, S1, S2 Lungs: Clear to auscultation bilaterally, no rales or crackles noted, no wheezes, good air entry Abdomen: Non distended, NT, normal BS Extremities: Normal to inspection Skin: No rashes noted, no lesions or wounds seen Psych: Euthymic, normal affect Objective Data Vital Signs Vital Signs: Vital Signs - 24 hr 09/09/22 14:00 09/09/22 21:53 09/10/22 06:00 Temperature 97.8 F 98.2 F 98.1 F Pulse Rate 51 L 53 L 58 L Respiratory Rate 16 18 18 Blood Pressure 134/50 L 127/50 L 137/60 Pulse Oximetry 98 94 95 Intake/Output Intake/Output: Intake & Output 09/07/22 09/08/22 09/09/22 09/10/22 23:59 23:59 23:59 23:59 Intake Total 1000 1000 3360 1999 Output Total 400 800 Balance 2694 749 2163 1999 Meds/Results Medications: Active Medications Generic Name Dose Route Start Last Admin Trade Name Freq PRN Reason Stop Dose Admin Acetaminophen 650 mg 09/10/22 07:03 Acetaminophen 650 Mg Suppository RECTAL Q6H PRN Mild Pain (1-3) or Fever Enoxaparin Sodium 40 mg 09/09/22 09:00 09/10/22 09:31 Enoxaparin 40 Mg/0.4 Ml Syringe SUB-Q 40 mg DAILY TAYLOR Administration Potassium Cl/Dextrose/Lact Ringer's 1,000 mls @ 80 mls/hr 09/09/22 11:00 09/10/22 11:14 Kcl 20 Meq/D5lr IV CONT Infused .[id number] TAYLOR Infusion Ketorolac Tromethamine 30 mg 09/10/22 07:01 Ketorolac 30 Mg/Ml Vial (*Bkc) IV PUSH Q6H PRN Headache Morphine Sulfate 2 mg 09/08/22 01:36 09/08/22 08:32 Morphine Sulfate (*Crx) 4 Mg/Ml Inj IV PUSH 2 mg Q2H PRN Administration Pain Rated 7-10 Morphine Sulfate 1 mg 09/08/22 14:33 09/10/22 01:56 Morphine Sulfate (*Crx) 2 Mg/Ml Inj IV PUSH 1 mg Q2H PRN Administration Pain Rated 4-6 Ondansetron HCl 4 mg 09/08/22 01:36 09/10/22 08:34 Ondansetron Inj 4 Mg/2 Ml Vial IV PUSH 4 mg Q4H PRN Administration Nausea Pantoprazole Sodium 40 mg 09/09/22 09:00 09/10/22 09:31 [place]
[2022-09-10 14:00] VITALS: BP 110/47; PULSE 58; RESP 20; TEMP 36.5; O2SAT 98
[2022-09-10] MEDS: PRAVASTATIN SODIUM 20 MG TABLET 40 MG PO (20:17)
[2022-09-10] MEDS: QUEtiapine FUMARATE 25 MG TABLET PO (20:17)
[2022-09-10 21:48] VITALS: BP 128/48; PULSE 53; RESP 18; TEMP 36.8; O2SAT 97
[2022-09-10 22:18] VITALS: O2SAT 96
[2022-09-11 05:52] LABS: Hematocrit 35.4 % (37.0-47.0); Hemoglobin 11.5 g/dL (12.0-15.0); Mean Corpuscular HGB Conc 32.5 g/dl (32-36); Mean Corpuscular Hemoglobin 30.5 pg (26-34); Mean Corpuscular Volume 93.9 fl (80-100); Mean Platelet Volume 11.3 fl (7.4-10.4); Platelet Count Result 170 k/mm3 (150-375); Red Blood Count 3.77 M/mm3 (4.2-5.4); Red Cell Distribution Width 12.6 % (11.5-14.5); White Blood Count 5.9 K/mm3 (4.5-10.0)
[2022-09-11 06:00] VITALS: BP 133/58; PULSE 56; RESP 118; TEMP 36.8; O2SAT 95
[2022-09-11 06:15] LABS: Anion Gap 4 mmol/L (8-16); Blood Urea Nitrogen 10 mg/dL (7-17); Calcium 8.3 mg/dL (8.4-10.2); Carbon Dioxide 28 mmol/L (22-30); Chloride 107 mmol/L (98-107); Estimated CRCL calculation 71 ml/min; Estimated Glomerular Filt Rate > 60; Glucose 94 mg/dL (65-110); Potassium 3.3 mmol/L (3.4-5.0); Sodium 139 mmol/L (137-145)
[2022-09-11] MEDS: FLUTICASONE PROPIONATE 0.05% NA SPR 16 GM BTL (*BKC) 2 SPRAY NASAL (09:13)
[2022-09-11] MEDS: THERAPEUTIC MULTIVITAMINS/MINERALS TAB (*BKC) 1 TABLET PO (09:14)
[2022-09-11] MEDS: POTASSIUM CHLORIDE 20 MEQ TABLET 40 MEQ PO (09:14)
[2022-09-11] MEDS: buPROPion HCL XL (24 HR) 150 MG TABCR PO (09:14)
[2022-09-11] MEDS: CHOLECALCIFEROL 1,000 UNITS TABLET 4000 UNITS PO (09:15)
[2022-09-11] MEDS: ESCITALOPRAM OXALATE 10 MG TABLET PO (09:15)
[2022-09-11] MEDS: PANTOPRAZOLE SODIUM IV 40 MG VIAL IV PUSH (09:15)
--- NOTE | 2022-09-11 11:19 | PM.PNGS ---
Progress Note: A&P Assessment and Plan (1) Small bowel obstruction: Code(s): K56.609 - Unspecified intestinal obstruction, unspecified as to partial versus complete obstruction Status: Acute Assessment and Plan: Resolved. Can go home today on regular diet. I advised patient to avoid eating sunflower seeds, pumpkin seeds, or large amounts of peanuts or popcorn. Fruit and vegetables with seeds are fine. Salads are fine. Just large amounts of non digestible material should be avoided. (2) History of total colectomy: Code(s): Z90.49 - Acquired absence of other specified parts of digestive tract Status: Chronic (3) Colon cancer metastasized to lung: Code(s): C18.9 - Malignant neoplasm of colon, unspecified; C78.00 - Secondary malignant neoplasm of unspecified lung Status: Chronic (4) Frontal headache: Code(s): R51.9 - Headache, unspecified Status: Resolved Assessment and Plan: Probably due to nasogastric tube and sinus congestion Subjective Subjective Date/Time Seen: 09/11/22 11:19 Patient reports: no new complaints, feels better, pain is less (No further abdominal pain), tolerating a regular diet, bowel movement and afebrile Review of Systems Review of Systems: All systems reviewed & are unremarkable except as noted in HPI and below (HPI) Exam Const: General: comfortable and no acute distress Orientation/consciousness: patient oriented x3 GI: Inspection: non-distended, scaphoid and scar GI Palp: Yes Soft to palpation, No Tenderness to palpation present (GI), No Guarding due to palpation present (GI) and No Rebound tenderness present Neuro: General: patient oriented x3 and no focal motor deficits Extrem: General: no calf tenderness and no edema Psych: Affect: normal affect Insight: Good insight present (Psych) Judgement: Good judgement present (Psych) Objective Data Vital Signs Vital Signs: Vital Signs - 24 hr 09/10/22 14:00 09/10/22 21:48 09/10/22 22:18 Temperature 36.5 C 36.8 C Pulse Rate 58 L 53 L Respiratory Rate 20 18 Blood Pressure 110/47 L 128/48 L Pulse Oximetry 98 97 96 Oxygen Delivery Room Air 09/11/22 06:00 Temperature 36.8 C Pulse Rate 56 L Respiratory Rate 118 H Blood Pressure 133/58 L Pulse Oximetry 95 Oxygen Delivery Intake/Output Intake/Output: Intake & Output 09/08/22 09/09/22 09/10/22 09/11/22 23:59 23:59 23:59 23:59 Intake Total 1000 3360 2420 120 Output Total 400 800 Balance 600 2560 2420 120 Meds/Results Medications: Active Medications Generic Name Dose Route Start Last Admin Trade Name Freq PRN Reason Stop Dose Admin Acetaminophen 650 mg 09/10/22 07:03 Acetaminophen 650 Mg Suppository RECTAL Q6H PRN Mild Pain (1-3) or Fever Bupropion HCl 150 mg 09/11/22 09:00 09/11/22 09:14 Bupropion Hcl Xl (24 Hr) 150 Mg Tabcr PO 150 mg QAM TAYLOR Administration Enoxaparin Sodium 40 mg 09/09/22 09:00 09/11/22 09:10 Enoxaparin 40 Mg/0.4 Ml Syringe SUB-Q Not Given DAILY TAYLOR Escitalopram Oxalate 10 mg 09/11/22 09:00 09/11/22 09:15 Escitalopram Oxalate 10 Mg Tablet PO 10 mg DAILY TAYLOR Administration Famotidine 20 mg 09/10/22 15:49 Famotidine 20 Mg Tablet PO DAILY PRN reflux Fluticasone Propionate 2 spray 09/11/22 09:00 09/11/22 09:13 Fluticasone Propionate 0.05% Na Spr 16 Gm Btl (*Bkc) NASAL 2 spray QAM TAYLOR Administration Ketorolac Tromethamine 30 mg 09/10/22 07:01 Ketorolac 30 Mg/Ml Vial (*Bkc) IV PUSH Q6H PRN Headache Multivitamins/Calcium 1 tablet 09/11/22 09:00 09/11/22 09:14 Therapeutic Multivitamins/Minerals Tab (*Bkc) PO 1 tablet DAILY TAYLOR Administration Pantoprazole Sodium 40 mg 09/09/22 09:00 09/11/22 09:15 Pantoprazole Sodium Iv 40 Mg Vial IV PUSH 40 mg QAM TAYLOR Administration Pravastatin Sodium 40 mg 09/10/22 21:00 09/10/22 20:17 Pravastatin Sodium 20 Mg Tablet PO
--- NOTE | 2022-09-11 13:35 | PM.DS ---
DS: Admitting Diagnosis Discharge Date 09/11/22 Admitting Diagnosis Abdominal pain DS: Discharge Diagnosis Discharge Diagnosis (1) Small bowel obstruction: Code(s): K56.609 - Unspecified intestinal obstruction, unspecified as to partial versus complete obstruction Status: Acute (2) Abdominal pain: Code(s): R10.9 - Unspecified abdominal pain Status: Acute (3) History of colon cancer: Code(s): Z85.038 - Personal history of other malignant neoplasm of large intestine Status: Acute (4) Chronic depression: Code(s): F32.9 - Major depressive disorder, single episode, unspecified Status: Acute (5) Frontal headache: Code(s): R51.9 - Headache, unspecified Status: Resolved (6) GERD (gastroesophageal reflux disease): Onset Date: ~03/2022 Code(s): K21.9 - Gastro-esophageal reflux disease without esophagitis Status: Acute DS: Summary Hospital Course Reason for hospitalization: 71yo female with history of multiple abdominal surgeries including a partial colectomy for colon cancer who presented with abdominal pain and found to have a SBO. Please see H&P for details. Hospital Course: Patient presents with complaints of abdominal pain. CT scan of the abdomen and pelvis showed a right lower quadrant small bowel partial obstruction with some fluid between the small bowel segments. Also noted was subtotal colectomy with ileosigmoid anastomosis without obstruction. NG tube was placed. Laboratory evaluation was unremarkable. UA was essentially clear. Urine cultures negative. With bowel rest and NG tube decompression, patient's symptoms improved. Her x-ray showed resolution of the obstruction. She underwent small bowel follow-through which showed normal small bowel series. She was started on a diet this was advanced. She tolerated this well. She overall did well and was able to be discharged home on 09/11/2022. Status at Discharge Cognitive/behavioral status at discharge: stable Time Spent with Patient Time attestation: Total time spent providing and/or coordinating discharge services: 32 minutes Time spent: Greater than 30 minutes Exam Narrative: AF 98.3 133/58 56 118 95% ra Gen - NARD Chest - CTA bilaterally, nml RR CV - RRR S1/S2 Abd - Soft, NT/ND, Positive BS Ext - No pedal edema Psych - Nml mood and affect Skin - Warm and dry DS: Data Data Completed and Pending Labs on day of discharge: Labs from last 24 hours 09/11/22 05:33 WBC 5.9 RBC 3.77 L Hgb 11.5 L Hct 35.4 L MCV 93.9 MCH 30.5 MCHC 32.5 RDW 12.6 Plt Count 170 MPV 11.3 H Sodium 139 Potassium 3.3 L Chloride 107 Carbon Dioxide 28 Anion Gap 4 L BUN 10 D Creatinine 0.50 L Estim Creat Clear Calc 71 Estimated GFR > 60 Glucose 94 Calcium 8.3 L Discharge Plan Discharge Attending physician on discharge: Lai Harris Consulting providers: Javier Nickerson Discharging Clinician: Lai Harris Anticipated Discharge Date/Time: 09/11/22 13:44 Patient Disposition: Home, Self-Care Activity: as tolerated Diet: regular Discharge Instructions: Avoid eating large amounts of pumpkin seeds, sunflower seeds, peanuts, and popcorn. Salads, fruits with seeds, vegetables with seeds, literally any other oral intake is fine. No surgery follow-up needed Resume normal activities as tolerated Contact your doctor or call 911 and come to the Emergency Room if you have recurrent abdominal pain or other worrisome symptoms. Follow-up with your primary care provider in 1-2 weeks. Please call for appointment. Thank you for using [facility] for your health care needs. Patient Instructions: Antibiotic Form, Bowel Obstruction (GEN) Stand Alone Forms: General Discharge Information Follow-up/Referrals: Tarun Villegas MD [Primary Care Provider] - Discharge Medications: Continu
[2022-09-11 14:00] VITALS: BP 106/50; PULSE 76; RESP 18; TEMP 36.5; O2SAT 97
== END 2022-09-11 14:10 | disposition home or self-care (01) | DRG 390 ==
LOC: ANHED 09-08 01:45 → ANH3MEDSUR 09-08 02:41
PROVIDERS: Surgery; Admitting Provider Internal Medicine; Emergency Provider Emergency Medicine; PCP Family Medicine; Visit Provider Internal Medicine
DX: K56.609 Unspecified intestinal obstruction, unspecified as to partial versus complete obstruction (principal); F32.9 Major depressive disorder, single episode, unspecified; Z85.038 Personal history of other malignant neoplasm of large intestine; K21.9 Gastro-esophageal reflux disease without esophagitis; R51.9 Headache, unspecified; Z86.16 Personal history of COVID-19; Z82.49 Family history of ischemic heart disease and other diseases of the circulatory system; Z79.899 Other long term (current) drug therapy
CPT/HCPCS: 36415; 74018; 74177; 74250; 80048; 80053; 81001; 83690; 83735; 85025; 85027; 87086; 87088; 96361; 96374; 96375; 96376; 99285; A9270; C9113; G0378; J1650; J1885; J2270; J2405; J3480; J7030; Q9967

== ENCOUNTER 2023-06-27 07:41 | Inpatient (IN) | payer MEDICARE, OTHER, SELFPAY ==
[2023-06-27] VITALS (7 sets, daily range): BP systolic 124–149; BP diastolic 55–75; PULSE 65–79; RESP 16–20; TEMP 36.5–37.1; O2SAT 93–99
--- NOTE | ~2023-06-27 | XR_ITS ---
XR abdomen/kub 1V 06/28/2023 05:58 INDICATION: Bowel obstruction TECHNIQUE: KUB COMPARISON: Comparison to multiple prior studies sequentially, with oldest reviewed study dated 07/2022. FINDINGS: Bowel gas pattern is normal. NG tube in the stomach. There is no evidence of free air, mass , organomegaly, ascites or obstruction. No abnormal calculi are seen. The bones appear intact. Mild dextroscoliosis of the lumbar spine. IMPRESSION: 1: No acute abdominal abnormality identified. Reviewed, dictated and finalized at location A.
--- NOTE | ~2023-06-27 | XR_ITS ---
EXAMINATION: XR abdomen gastric tube insert DATE: 06/27/2023 09:27 INDICATION: Nasogastric tube placement TECHNIQUE: A supine view of the abdomen and lower chest was obtained for evaluation of feeding tube placement. COMPARISON: None. FINDINGS: Nasogastric tube tip in proximal side port in the body the stomach. Surgical clip projects of the lef t upper quadrant. There are some excreted contrast in bilateral renal collecting systems resulting fr om the contrast enhanced CT from one hour prior. No dilated loops of gas-filled bowel to suggest obst ruction. Lung bases are clear. Heart size is normal. IMPRESSION: 1. Nasogastric tube in stomach. Reviewed, dictated and finalized at location A.
--- NOTE | ~2023-06-27 | CT_ITS ---
EXAMINATION: CT abdomen pelvis w con DATE: 06/27/2023 08:24 INDICATION: Lower abdominal pain. History of obstruction. TECHNIQUE: Computed tomography (CT) of the abdomen and pelvis was performed with 100 CC Omnipaque 350 intravenous contrast. Automated exposure control and iterative reconstruction technique were employe d. Exam dose: 306.45 mGy-cm total exam DLP. COMPARISON: 09/07/2022 CT abdomen pelvis FINDINGS: Mild discoid atelectasis and/or scarring at the lung bases. Normal heart size. No pericardial or pleural effusion. Small sliding hiatal hernia. The liver, gallbladder, bile ducts, pancreas, pancreatic duct and spleen are unremarkable. Normal morphology of the adrenal glands. There are several 4 mm smaller right renal cysts and an approximately 7.5 mm left renal cyst. No urinary tract calculus or hydroureteronephrosis. The urinary bladder is relatively evacuated, unre markable. Uterus and adnexal areas are unremarkable. There is atherosclerotic calcification but normal caliber of the abdominal aorta. No intraperitoneal or retroperitoneal or pelvic mass lesion or adenopathy or ascites is detected. Status post subtotal colectomy with ileocolic anastomosis at the sigmoid colon. There is mild small b owel dilatation measuring up to 3.1 cm diameter, with multiple fluid containing small bowel segments and small bowel air-fluid levels consistent with partial small bowel obstruction. There is mild fluid within the mesentery between small bowel segments. No intraperitoneal free air is detected. No suspicious osteolytic or osteoblastic lesions. Mild degenerative changes of the thoracic and lumba r spine. IMPRESSION: Partial distal small bowel obstruction in region of ileocolic anastomosis Reviewed, dictated and finalized at Location A. Reviewed, dictated and finalized at location B. IMPRESSION: Partial distal small bowel obstruction in region of ileocolic anas tomosis
--- NOTE | ~2023-06-27 | XR_ITS ---
XR abdomen/kub 1V 06/29/2023 06:06 INDICATION: Bowel obstruction TECHNIQUE: KUB COMPARISON: Comparison to multiple prior studies sequentially, with oldest reviewed study dated 08/2022. FINDINGS: Bowel gas pattern is normal. NG tube in the stomach. There is no evidence of free air, mass , organomegaly, ascites or obstruction. No abnormal calculi are seen. The bones appear intact. Mode rate lumbar spondylosis. There are surgical changes in the pelvis. IMPRESSION: 1: No acute abdominal abnormality identified. Reviewed, dictated and finalized at location A.
--- NOTE | 2023-06-27 08:02 | ED.ABDPAIN ---
HPI - Abdominal Pain General Chief Complaint: Abdominal Pain Stated Complaint: abdominal pain Time Seen by Provider: 06/27/23 07:54 History of Present Illness HPI narrative: This is a 72-year-old female, with reported history of colon cancer status post resection (completed chemo and radiation in the early ) and multiple episodes of bowel obstruction, who presents to the emergency department complaining of moderate to severe abdominal pain consistent with previous obstructions. The patient states this is been present for the last day. She describes the pain as dull and intermittently sharp. It is associated with nausea, though she denies vomiting. She states her last bowel movement passage of gas was approximately 2 hours ago. She has no other complaints at this time. Related Data Home Medications Medication Instructions Recorded Confirmed lysine 500 mg tablet (L-Lysine) 500 mg PO DAILY 02/24/19 06/27/23 [id number] 8 mg-folic 400 1 tablet PO DAILY 02/24/19 06/27/23 mcg-K 50 mcg-lutein 300 mcg tablet (Centrum Silver Women) triamcinolone acetonide 55 mcg 1 spray intranasal DAILY 10/22/21 06/27/23 nasal spray aerosol (Nasacort Allergy) cholecalciferol (vitamin D3) 50 4,000 unit PO DAILY 04/23/22 06/27/23 mcg (2,000 unit) capsule Allergies Allergy/AdvReac Type Severity Reaction Status Date / Time No Known Allergies Allergy Verified 06/27/23 07:42 Review of Systems Review of Systems: CONSTITUTIONAL: Denies fever, chills, or sweats. CARDIOVASCULAR: Denies chest pain, palpitations, or edema. RESPIRATORY: Denies cough or dyspnea. GASTROINTESTINAL: Abdominal pain, nausea Denies vomiting, or diarrhea. GENITOURINARY: Denies dysuria or hematuria. SKIN: Denies rash or itching. MUSCULOSKELETAL: Denies back pain, joint pain, or myalgia. NEUROLOGIC: Denies headache, numbness, dizziness, or weakness. PSYCHIATRIC: Denies anxiety or depression. [facility] Past Medical History Medical History (Updated 06/27/23 @ 14:02 by Radha Fish PA-C) Adult BMI 27.0-27.9 kg/sq m Anemia Hemoglobin was low at 11.5 on 09/11/2022.Hemoglobin 13.8 with iron 104 with 34% saturation and ferritin 43 with vitamin B12 485 and folic acid 24 on 10/24/2022 At moderate risk for fall (08/2021) fell on stairs. BMI 26.0-26.9,adult Breast cancer screening by mammogram Normal mammogram 07/11/2021. Chronic anxiety Colon polyp, hyperplastic (11/29/21) rectal polyps 11/29/2021 with recheck in 5 years. Contact dermatitis due to plant COVID-19 (04/03/22) tested positive 04/04/2022. Paxlovid 04/05/2022. Depression with anxiety Essential (primary) hypertension GERD (gastroesophageal reflux disease) (~03/2022) Hospital discharge follow-up follow-up of small-bowel obstruction from 09/08/2022. Hypokalemia Potassium was low at 3.9 on 09/11/2022.Potassium normal at 4.3 With magnesium normal at 2.2 on 10/24/2022. Multiple fractures of ribs of right side (08/15/21) right posterior lateral rib fractures 8, 9, 10 08/15/2021. ER 08/19/2021. 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 Lung metastasis resected 10 years ago no further recurrence History of total colectomy 2002 for cancer Family History Family History Sibling Diabetes mellitus Patient's sister is in good health Mother Patient's mother is , Onset Age: 81 Family history of malignant neoplasm of breast Father Family history of cardiovascular disease, Onset Age: 67 Hypertension Acute myocardial infarction Social History Social History Smoking status: Never smoker Alcohol intake: never Substance use: never Substance use type: does not use Do You Feel Safe in your Home?: Yes Lack of Transportation: No Lack of Food: Ne
[2023-06-27 08:11] LABS: Appearance Urine Cloudy (Clear); Bacteria Urine None Seen /hpf; Bilirubin Urine Negative (Negative); Blood Urine Negative (Negative); Color Urine Yellow (Yellow); Glucose Urine UA Negative (Negative); Ketones Urine Negative (Negative); Leukocyte Esterase Ur Negative LEU/UL (Negative); Nitrate Urine Negative (Negative); Non Pathogenic Casts 0-2; Protein Urine Negative (Negative); RBC Urine 0-2 /hpf (0-2); Specific Grav Ur 1.017 (1.001-1.035); Squamous Epithelial Cell Urine None Seen /hpf (Few); Urobilinogen Urine 0.2 mg/dL (<2.0); WBC Urine 0-5 /hpf (0-3); pH Urine 7.5 (5.0-9.0)
[2023-06-27 08:13] LABS: Add Urine Microscopic? YES
[2023-06-27 08:20] LABS: Estimated CRCL calculation 55 ml/min; Estimated Glomerular Filt Rate > 60
[2023-06-27 08:21] LABS: Basophils Percent Auto 0.4 % (0.2-1.2); Eosinophils Percent Auto 0.3 % (0-4.4); Hematocrit 44.9 % (37.0-47.0); Hemoglobin 15.2 g/dL (12.0-15.0); Immature Granulocyte Absolute 0.02 K/mm3 (0.00-0.031); Immature Granulocyte Percent A 0.2 % (0-0.5); Lymphocytes Percent Auto 23.8 % (18.3-44.2); Mean Corpuscular HGB Conc 33.9 g/dl (32-36); Mean Corpuscular Hemoglobin 30.8 pg (26-34); Mean Corpuscular Volume 91.1 fl (80-100); Mean Platelet Volume 10.8 fl (7.4-10.4); Monocytes Absolute Auto 0.5 K/mm3 (0.1-0.6); Neutrophils Absolute Auto 6.5 K/mm3 (1.3-6.7); Neutrophils Percent Auto 70.3 % (45.5-73.1); Platelet Count Result 216 k/mm3 (150-375); Red Blood Count 4.93 M/mm3 (4.2-5.4); Red Cell Distribution Width 12.8 % (11.5-14.5); White Blood Count 9.3 K/mm3 (4.5-10.0)
[2023-06-27] MEDS: MORPHINE SULFATE (*CRX) 4 MG/ML INJ IV PUSH (08:30)
[2023-06-27] MEDS: ONDANSETRON INJ 4 MG/2 ML VIAL IV PUSH (08:30)
[2023-06-27] MEDS: SODIUM CHLORIDE 0.9% IV 1,000 ML 999 ML IV CONT (08:30)
[2023-06-27 08:31] LABS: Alanine Aminotransferase 23 U/L (6-35); Albumin Level 4.5 g/dL (3.5-5.1); Alkaline Phosphatase 75 U/L (38-126); Anion Gap 1 mmol/L (8-16); Aspartate Amino Transferase 31 U/L (14-36); Bilirubin,Total 0.6 mg/dL (0.2-1.3); Blood Urea Nitrogen 17 mg/dL (7-17); Calcium 9.8 mg/dL (8.4-10.2); Carbon Dioxide 28 mmol/L (22-30); Chloride 105 mmol/L (98-107); Estimated CRCL calculation 65 ml/min; Estimated Glomerular Filt Rate > 60; Glucose 152 mg/dL (65-110); Lipase 123 U/L (23-300); Potassium 4.3 mmol/L (3.4-5.0); Sodium 134 mmol/L (137-145)
[2023-06-27 08:32] LABS: Lactic Acid Reflex 2.4 mmol/L (0.7-2.0)
[2023-06-27 08:33] LABS: INR 0.9; Prothrombin Time 12.2 Seconds (11.1-14.7)
[2023-06-27] MEDS: LACTATED RINGERS 1,000 ML 125 ML IV CONT (10:29)
--- NOTE | 2023-06-27 10:39 | ADMGEN ---
This patient, Rowena Paez, was admitted to 3 Med Surg Room 327-01. Patient/family oriented to hospital policies and general routines including ID bracelet, bed and alarms, visiting hours, pain management, procedures, bathroom and other care routines, personal items, smoking policy, room service/diet, and visiting hours. Information on how to activate the Rapid Response Team has been discussed. Patient/Family are encouraged to report perceived risks to care and to ask questions if they do not understand what they are told or what they should do.
[2023-06-27 11:17] LABS: Reflex Lactic Acid Yes or No Add Lactic
[2023-06-27 12:25] LABS: Lactic Acid 1.8 mmol/L (0.7-2.0)
[2023-06-27] MEDS: MORPHINE SULFATE (*CRX) 2 MG/ML INJ IV PUSH ×2 (13:32→22:35)
--- NOTE | 2023-06-27 13:55 | PM.IMHP ---
H&P: HPI History of Present Illness Date/Time: 06/27/23 13:55 Chief Complaint: Abdominal pain. 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 She gives a 1 day history of moderate to severe abdominal pain described as dull and intermittently sharp in nature associated with nausea. The symptoms are similar to those she has experienced with prior bowel obstructions. Last normal bowel movement was yesterday morning. She passed a small amount of gas in the quality reviewer hours but has not had any bowel movement since that time. She denies fever, chills, sweats, chest pain, shortness of breath, vomiting, hematochezia, and melena. CT scan showed evidence of a partial small-bowel obstruction and she is being admitted in this setting for further treatment. At the time my evaluation she is resting comfortably. She continues to have intermittent abdominal pain but is overall feeling a bit better. She denies fever, chills, sweats, recent cold and flu symptoms, chest pain, shortness of breath, and vomiting. Review of Systems Review of Systems: Twelve systems were reviewed and are negative except for as per HPI. [facility] Past Medical History Medical History Adult BMI 27.0-27.9 kg/sq m Anemia Hemoglobin was low at 11.5 on 09/11/2022.Hemoglobin 13.8 with iron 104 with 34% saturation and ferritin 43 with vitamin B12 485 and folic acid 24 on 10/24/2022 At moderate risk for fall (08/2021) fell on stairs. BMI 26.0-26.9,adult Breast cancer screening by mammogram Normal mammogram 07/11/2021. Chronic anxiety Colon polyp, hyperplastic (11/29/21) rectal polyps 11/29/2021 with recheck in 5 years. Contact dermatitis due to plant COVID-19 (04/03/22) tested positive 04/04/2022. Paxlovid 04/05/2022. Depression with anxiety Essential (primary) hypertension GERD (gastroesophageal reflux disease) (~03/2022) Hospital discharge follow-up follow-up of small-bowel obstruction from 09/08/2022. Hypokalemia Potassium was low at 3.9 on 09/11/2022.Potassium normal at 4.3 With magnesium normal at 2.2 on 10/24/2022. Multiple fractures of ribs of right side (08/15/21) right posterior lateral rib fractures 8, 9, 10 08/15/2021. ER 08/19/2021. 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 Lung metastasis resected 10 years ago no further recurrence History of total colectomy 2002 for cancer Family History Family History Sibling Diabetes mellitus Patient's sister is in good health Mother Patient's mother is , Onset Age: 81 Family history of malignant neoplasm of breast Father Family history of cardiovascular disease, Onset Age: 67 Hypertension Acute myocardial infarction Social History Social History (Updated 06/27/23 @ 21:14 by Radha Fish PA-C) Social History: Surrogate medical decision maker: Rodri Paez, spouse. Code status: Full code. Smoking status: Never smoker Alcohol intake: never Substance use: never Substance use type: does not use Do You Feel Safe in your Home?: Yes Lack of Transportation: No Lack of Food: Never True Current Housing: I Have Housing Concerned About Future Housing: No Difficulty Paying Gas/Electric Bills: No Difficulty Paying for Meds: No Currently Unemployed: No Education: High School Diploma/GED Difficulty w/ Childcare or Family Care: No Living arrangements: with family Spiritual care concerns: No Meds Home Medications and
--- NOTE | 2023-06-27 16:55 | PM.CNGS ---
Assessment and Plan Assessment and plan (1) Partial small bowel obstruction: Code(s): K56.600 - Partial intestinal obstruction, unspecified as to cause Status: Acute Assessment and Plan: I have reviewed the CT and discussed the findings with the patient. She has evidence of a distal small-bowel obstruction at the colorectal anastomosis. She did have a colonoscopy 2 years ago which showed no evidence of stricture at this location, but some narrowing could lead to these partial obstructions. Will continue NG decompression and follow-up with an abdominal x-ray tomorrow. If she is showing signs of bowel function returning, then hopefully NG tube can be removed in diet can be started. If we have not seen any improvement in the next couple days, could consider small-bowel follow-through to assess for any ongoing complete obstruction or stricturing. (2) History of total colectomy: Code(s): Z90.49 - Acquired absence of other specified parts of digestive tract Status: Chronic History of Present Illness Consult details Consult date: 06/27/23 Reason for consult: other (bowel obstruction) Requesting physician: Ryley Shaver MD Narrative: this is a 72-year-old woman who I am asked to see for a bowel obstruction. She presented to the emergency department this morning with abdominal pain and nausea. She had had a bowel movement this morning but she states that this pain feels just like her previous episodes of obstruction. She has an extensive surgical history including a sigmoid colectomy in 2002 for sigmoid colon cancer followed by subtotal colectomy within that same year for an ascending colon polyp. She has a distal ileocolic anastomosis but not much colon left. She had a similar bowel obstruction about 1 year ago and was treated with NG decompression and bowel rest. A small-bowel follow-through at that time showed normal transit time and no evidence of stricture or obstruction. She had been doing well up until today. She does not recall eating anything that caused her symptoms. She denies any vomiting. Review of Systems Review of Systems: All systems reviewed & are unremarkable except as noted in HPI and below Eyes: Eyes: Denies change in vision ENT: Denies hearing loss, Denies neck pain and Denies sore throat Cardiovascular: Cardiovascular: Denies chest pain and Denies dyspnea Respiratory: Respiratory: Denies cough, Denies dyspnea and Denies wheezing Gastrointestinal: Gastrointestinal: Reports as per HPI Genitourinary: Genitourinary: Denies hematuria and Denies dysuria Musculoskeletal: Musculoskeletal: Denies arthralgias, Denies joint swelling and Denies neck pain Allergic/Immunologic: Allergic/Immunologic: Denies wheezing [facility] Past Medical History Medical History (Updated 06/27/23 @ 14:02 by Radha Fish PA-C) Adult BMI 27.0-27.9 kg/sq m Anemia Hemoglobin was low at 11.5 on 09/11/2022.Hemoglobin 13.8 with iron 104 with 34% saturation and ferritin 43 with vitamin B12 485 and folic acid 24 on 10/24/2022 At moderate risk for fall (08/2021) fell on stairs. BMI 26.0-26.9,adult Breast cancer screening by mammogram Normal mammogram 07/11/2021. Chronic anxiety Colon polyp, hyperplastic (11/29/21) rectal polyps 11/29/2021 with recheck in 5 years. Contact dermatitis due to plant COVID-19 (04/03/22) tested positive 04/04/2022. Paxlovid 04/05/2022. Depression with anxiety Essential (primary) hypertension GERD (gastroesophageal reflux disease) (~03/2022) Hospital discharge follow-up follow-up of small-bowel obstruction from 09/08/2022. Hypokalemia Potassium was low at 3.9 on 09/11/2022.Potassium normal at 4.3 With magnesium normal at 2.2 on 10/24/2022. Multiple fractures of ribs of right side (08/15/21) right posterior lateral rib fractures 8, 9, 10 08/15/2021. ER 08/19/2021. Overweight (BMI 25.0-29.9) Surgical History Surgical History (Reviewed 06/27/23 @ 13:58 by Radha Mckeon
[2023-06-27] MEDS: LACTATED RINGERS 1,000 ML 100 ML IV CONT (17:57)
[2023-06-28] MEDS: LACTATED RINGERS 1,000 ML 100 ML IV CONT ×2 (04:15→14:10)
[2023-06-28 05:45] VITALS: BP 138/63; PULSE 75; RESP 18; TEMP 37.3; O2SAT 93
[2023-06-28 06:52] LABS: Basophils Percent Auto 0.5 % (0.2-1.2); Eosinophils Absolute Auto 0.1 K/mm3 (0-0.3); Eosinophils Percent Auto 0.7 % (0-4.4); Hematocrit 39.9 % (37.0-47.0); Hemoglobin 13.1 g/dL (12.0-15.0); Immature Granulocyte Absolute 0.03 K/mm3 (0.00-0.031); Immature Granulocyte Percent A 0.4 % (0-0.5); Lymphocytes Absolute Auto 1.98 K/mm3 (0.9-3.2); Lymphocytes Percent Auto 24.4 % (18.3-44.2); Mean Corpuscular HGB Conc 32.8 g/dl (32-36); Mean Corpuscular Hemoglobin 30.5 pg (26-34); Mean Corpuscular Volume 92.8 fl (80-100); Mean Platelet Volume 10.8 fl (7.4-10.4); Monocytes Absolute Auto 0.6 K/mm3 (0.1-0.6); Monocytes Percent Auto 7.6 % (2.6-8.5); Neutrophils Absolute Auto 5.4 K/mm3 (1.3-6.7); Neutrophils Percent Auto 66.4 % (45.5-73.1); Platelet Count Result 192 k/mm3 (150-375); Red Cell Distribution Width 12.7 % (11.5-14.5); White Blood Count 8.1 K/mm3 (4.5-10.0)
[2023-06-28 07:08] LABS: Anion Gap -1 mmol/L (8-16); Blood Urea Nitrogen 8 mg/dL (7-17); Calcium 8.6 mg/dL (8.4-10.2); Carbon Dioxide 30 mmol/L (22-30); Chloride 104 mmol/L (98-107); Estimated CRCL calculation 65 ml/min; Estimated Glomerular Filt Rate > 60; Glucose 116 mg/dL (65-110); Potassium 3.6 mmol/L (3.4-5.0); Sodium 133 mmol/L (137-145)
--- NOTE | 2023-06-28 07:57 | PM.IMPN ---
Progress Note: A&P Assessment and Plan (1) Partial small bowel obstruction: Code(s): K56.600 - Partial intestinal obstruction, unspecified as to cause Status: Acute Assessment and Plan: CT with partial distal small bowel obstruction in region of ileocolic anastomosis Surgery consulted and rec's appreciated Await return of bowel function May need small bowel follow through if she is still not passing flatus in a couple of days NG tube to LIWS NPO 06/27: 50 mils out from NG tube overnight. Bilious. Having some nausea but passing gas. No bowel movement. Will start Protonix. 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 She gives a 1 day history of moderate to severe abdominal pain described as dull and intermittently sharp in nature associated with nausea. The symptoms are similar to those she has experienced with prior bowel obstructions. Last normal bowel movement was yesterday morning. She passed a small amount of gas in the early childhood hours but has not had any bowel movement since that time. She denies fever, chills, sweats, chest pain, shortness of breath, vomiting, hematochezia, and melena. CT scan showed evidence of a partial small-bowel obstruction and she is being admitted in this setting for further treatment. At the time my evaluation she is resting comfortably.? She continues to have intermittent abdominal pain but is overall feeling a bit better. She denies fever, chills, sweats, recent cold and flu symptoms, chest pain, shortness of breath, and vomiting. Interval history: 06/27: Mrs. Paez is doing well today. She does say that she still has some right lower quadrant abdominal tenderness. She is having some intermittent nausea. She is passing gas but she has not had a bowel movement. Belly is soft and nondistended. NG tube with only 50 mL out overnight. Will see if we can do a small-bowel follow-through today. Review of Systems Review of Systems: Twelve systems were reviewed and are negative except for as per HPI. Exam Narrative: General: well appearing, well developed, well nourished, appears stated age. HEENT: normocephalic, atraumatic. Mucous membranes moist. EOMI, PERRLA, bilateral sclera anicteric, no conjunctival injection. Neck supple without JVD, lymphadenopathy, or bruit. NG tube to low intermittent wall suction. Respiratory: clear to auscultation bilaterally. No rales/rhonic/wheezes. Cardiovascular: Regular rate and rhythm, normal S1-S2 upon auscultation. No murmurs, rubs, or clicks. PMI is nondisplaced, capillary re-fill less than 3 second. Abdomen: Soft, round, no pulsatile masses, right lower quadrant distended and mildly tender. No rebound, no guarding. No CVA tenderness, no hepatosplenomegaly. Bowel sounds hypoactive to all four quadrants. No high pitch or tinkling sounds, resonant to percussion. Extremities: No cyanosis, clubbing, or edema present. Pulses are palpable 2/2. Active ROM to all four extremities. Neuro: Alert and orientated x 4. PERRLA. Cranial nerves 2-12 intact without focal deficit. Skin: Warm, dry, and intact, without rash, erythema, or lesion. Lines: Incisions: Ps
[2023-06-28] MEDS: ENOXAPARIN 40 MG/0.4 ML SYRINGE SUB-Q (08:20)
[2023-06-28 08:59] LABS: Cholesterol 175 mg/dL (0-200); HDL Direct 45 mg/dL; Triglycerides 145 mg/dL (<150)
[2023-06-28 09:10] LABS: LDL Cholesterol Direct 111 mg/dL
[2023-06-28] MEDS: ONDANSETRON INJ 4 MG/2 ML VIAL IV PUSH (12:43)
[2023-06-28] MEDS: PANTOPRAZOLE SODIUM IV 40 MG VIAL IV PUSH (14:34)
[2023-06-28 15:17] VITALS: BP 136/73; PULSE 76; RESP 16; TEMP 36.8; O2SAT 92
--- NOTE | 2023-06-28 15:17 | PM.PNGS ---
Progress Note: A&P Assessment and Plan (1) Partial small bowel obstruction: Code(s): K56.600 - Partial intestinal obstruction, unspecified as to cause Status: Acute Assessment and Plan: Stimulate bowels with dulcolax suppository today. Await return of bowel function. (2) History of total colectomy: Code(s): Z90.49 - Acquired absence of other specified parts of digestive tract Status: Chronic Subjective Subjective Date/Time Seen: 06/28/23 15:17 Interval history: Passing flatus. No BM yet. Still having some abdominal pain. Exam GI: Inspection: distended GI Palp: Yes Soft to palpation, Yes Tenderness to palpation present (GI) (mild lower abdominal) and No Guarding due to palpation present (GI) Percussion: Yes dullness to percussion Objective Data Vital Signs Vital Signs: Vital Signs - 24 hr 06/27/23 20:00 06/27/23 21:40 06/28/23 05:45 Temperature 36.5 C 37.3 C Pulse Rate 75 75 Respiratory Rate 20 18 Blood Pressure 130/55 L 138/63 Pulse Oximetry 95 93 93 Oxygen Delivery Room Air Intake/Output Intake/Output: Intake & Output 06/25/23 06/26/23 06/27/23 06/28/23 23:59 23:59 23:59 23:59 Intake Total 1846.2 2066.7 Output Total 50 Balance 1796.2 2066.7 Meds/Results Medications: Active Medications Generic Name Dose Route Start Last Admin Trade Name Freq PRN Reason Stop Dose Admin Bupropion HCl 150 mg 06/28/23 09:00 Bupropion Hcl Xl (24 Hr) 150 Mg Tabcr PO QAM [facility] Enoxaparin Sodium 40 mg 06/28/23 09:00 06/28/23 08:20 Enoxaparin 40 Mg/0.4 Ml Syringe SUB-Q 40 mg DAILY [facility] Administration Escitalopram Oxalate 10 mg 06/28/23 09:00 Escitalopram Oxalate 10 Mg Tablet PO DAILY [facility] Lactated Ringer's 1,000 mls @ 100 mls/hr 06/27/23 09:50 06/28/23 14:10 Lr - Lactated Ringers Iv IV CONT 100 mls/hr .Q10H [facility] Administration Morphine Sulfate 2 mg 06/27/23 11:06 06/27/23 22:35 Morphine Sulfate (*Crx) 2 Mg/Ml Inj IV PUSH 2 mg Q4H PRN Administration Pain 7-10 Ondansetron HCl 4 mg 06/27/23 11:07 06/28/23 12:43 Ondansetron Inj 4 Mg/2 Ml Vial IV PUSH 4 mg Q4H PRN Administration Nausea And Vomiting Pantoprazole Sodium 40 mg 06/28/23 14:25 06/28/23 14:34 Pantoprazole Sodium Iv 40 Mg Vial IV PUSH 40 mg QAM [facility] Administration Pravastatin Sodium 40 mg 06/28/23 21:00 Pravastatin Sodium 20 Mg Tablet PO QHS [facility] Quetiapine Fumarate 25 mg 06/28/23 21:00 Quetiapine Fumarate 25 Mg Tablet PO QHS [facility] Vitamin D 4,000 units 06/28/23 09:00 Cholecalciferol 1,000 Units Tablet PO DAILY [facility] Radiology Results: ITS Impressions Abdomen/Pelvis CT 06/27/23 08:26 IMPRESSION: Partial distal small bowel obstruction in region of ileocolic anastomosis Abdomen X-Ray 06/28/23 06:09 IMPRESSION: 1: No acute abdominal abnormality identified. Labs Labs: Laboratory Results - last 24 hr 06/28/23 06/28/23 06:24 06:28 WBC 8.1 RBC 4.30 Hgb 13.1 Hct 39.9 MCV 92.8 MCH 30.5 MCHC 32.8 RDW 12.7 Plt Count 192 MPV 10.8 H Immature Gran % (Auto) 0.4 Neut % (Auto) 66.4 Lymph % (Auto) 24.4 [place] % (Auto) 7.6 Eos % (Auto) 0.7 Baso % (Auto) 0.5 Lymph # (Auto) 1.98 [place] # (Auto) 0.6 Eos # (Auto) 0.1 Baso # (Auto) 0.0 Abs Immat Gran (auto) 0.03 Absolute Neuts (auto) 5.4 Absolute Nucleated RBC 0.000 Nucleated RBC % 0.0 Sodium 133 L Potassium 3.6 Chloride 104 Carbon Dioxide 30 Anion Gap -1 L BUN 8 D Creatinine 0.50 L Estim Creat Clear Calc 65 Estimated GFR > 60 Glucose 116 H Calcium 8.6 Magnesium 2.0 Triglycerides 145 Cholesterol 175 LDL Cholesterol Direct 111 HDL Direct 45
[2023-06-28] MEDS: BISACODYL 10 MG SUPPOSITORY RECTAL (16:12)
[2023-06-28 20:00] VITALS: O2SAT 94
[2023-06-28] MEDS: QUEtiapine FUMARATE 25 MG TABLET PO (20:41)
[2023-06-28 21:55] VITALS: BP 132/67; PULSE 85; RESP 20; TEMP 36.5; O2SAT 94
[2023-06-29] MEDS: LACTATED RINGERS 1,000 ML 100 ML IV CONT ×3 (00:10→20:55)
[2023-06-29 06:00] VITALS: BP 149/70; PULSE 83; RESP 20; TEMP 36.6; O2SAT 93
--- NOTE | 2023-06-29 07:36 | PM.IMPN ---
Progress Note: A&P Assessment and Plan (1) Partial small bowel obstruction: Code(s): K56.600 - Partial intestinal obstruction, unspecified as to cause Status: Acute Assessment and Plan: CT with partial distal small bowel obstruction in region of ileocolic anastomosis Surgery consulted and rec's appreciated Await return of bowel function May need small bowel follow through if she is still not passing flatus in a couple of days NG tube to LIWS NPO 06/27: 50 mils out from NG tube overnight. Bilious. Having some nausea but passing gas. No bowel movement. Will start Protonix. 06/28: Received Dulcolax suppository yesterday 06/28. Surgery to repeat dose today. If no improvement by tomorrow she will have a small-bowel follow-through. (2) Depression with anxiety: Code(s): F41.8 - Other specified anxiety disorders Status: Acute Assessment and Plan: Stable on home agents Resume Bupropion, escitalopram, and Seroquel once NG removed (3) Mixed hyperlipidemia: Code(s): E78.2 - Mixed hyperlipidemia Status: Acute Assessment and Plan: On pravastatin Lipid panel was reviewed Subjective Date/time seen: 06/29/23 07:36 Interval history: HPI obtained from the chart, This is a 72-year-old female with history of colon cancer status post sigmoidectomy with colostomy in March 2002, large villous adenoma of the ascending colon status post complete total abdominal colectomy with ileorectal anastomosis in May 2002, and small-bowel obstructions who presented to the emergency department for evaluation of abdominal pain. She gives a 1 day history of moderate to severe abdominal pain described as dull and intermittently sharp in nature associated with nausea. The symptoms are similar to those she has experienced with prior bowel obstructions. Last normal bowel movement was yesterday morning. 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 She denies fever, chills, sweats, chest pain, shortness of breath, vomiting, hematochezia, and melena. CT scan showed evidence of a partial small-bowel obstruction and she is being admitted in this setting for further treatment. At the time my evaluation she is resting comfortably.? She continues to have intermittent abdominal pain but is overall feeling a bit better. She denies fever, chills, sweats, recent cold and flu symptoms, chest pain, shortness of breath, and vomiting. Interval history: 06/27: Mrs. Paez is doing well today. She does say that she still has some right lower quadrant abdominal tenderness. She is having some intermittent nausea. She is passing gas but she has not had a bowel movement. Belly is soft and nondistended. NG tube with only 50 mL out overnight. 06/28: No acute events overnight. NG tube to remain low wall suction given continued abdominal discomfort. The surgery will repeat suppository. If she does not show improvement by tomorrow they will order a small-bowel follow-through. Review of Systems Review of Systems: Twelve systems were reviewed and are negative except for as per HPI. Exam Narrative: General: well appearing, well developed, well nourished, appears stated age. HEENT: normocephalic, atraumatic. Mucous membranes moist. EOMI, PERRLA, bilateral sclera anicteric, no conjunctival injection. Neck supple without JVD, lymphadenopathy, or bruit. NG tube to low intermittent wall suction. Respiratory: clear to auscultation bilaterally. No rales/rhonic/wheezes. Cardiovascular: Regular rate and rhythm, normal S1-S2 upon auscultation. No murmurs, rubs, or clicks. PMI is nondisplaced, capillary re-fill less than 3 second. Abdomen: Soft, round, no pulsatile masses, right lower quadrant distended and mildly tender. No rebound, no guarding. No CVA tenderness, no hepatosplenomegaly. Bowel sounds hypoactive to all four quadrants. No high pitch or tinkl
[2023-06-29] MEDS: PANTOPRAZOLE SODIUM IV 40 MG VIAL IV PUSH (09:04)
[2023-06-29] MEDS: ENOXAPARIN 40 MG/0.4 ML SYRINGE SUB-Q (09:04)
--- NOTE | 2023-06-29 12:56 | PM.PNGS ---
Progress Note: A&P Assessment and Plan (1) Partial small bowel obstruction: Code(s): K56.600 - Partial intestinal obstruction, unspecified as to cause Status: Acute Assessment and Plan: Still not showing much improvement. Will give Dulcolax again today. If not much better by tomorrow, will get Gastrografin SBFT. Continue NG decompression. (2) History of total colectomy: Code(s): Z90.49 - Acquired absence of other specified parts of digestive tract Status: Chronic Subjective Subjective Date/Time Seen: 06/29/23 12:56 Interval history: Still having some crampy abdominal pain. 1 BM yesterday but none since. Still feels bloated. Exam GI: Inspection: distended GI Palp: Yes Soft to palpation, Yes Tenderness to palpation present (GI) (mild lower abdominal) and No Guarding due to palpation present (GI) Percussion: Yes dullness to percussion Objective Data Vital Signs Vital Signs: Vital Signs - 24 hr 06/28/23 15:17 06/28/23 21:55 06/28/23 20:00 Temperature 36.8 C 36.5 C Pulse Rate 76 85 Respiratory Rate 16 20 Blood Pressure 136/73 132/67 Pulse Oximetry 92 94 94 Oxygen Delivery Room Air 06/29/23 06:00 Temperature 36.6 C Pulse Rate 83 Respiratory Rate 20 Blood Pressure 149/70 H Pulse Oximetry 93 Oxygen Delivery Intake/Output Intake/Output: Intake & Output 06/26/23 06/27/23 06/28/23 06/29/23 23:59 23:59 23:59 23:59 Intake Total 1846.2 2166.7 2049 Output Total 50 50 Balance 1796.2 2116.7 2049 Meds/Results Medications: Active Medications Generic Name Dose Route Start Last Admin Trade Name Freq PRN Reason Stop Dose Admin Bisacodyl 10 mg 06/29/23 12:55 Bisacodyl 10 Mg Suppository RECTAL 06/29/23 12:56 ONCE ONE Bupropion HCl 150 mg 06/28/23 09:00 Bupropion Hcl Xl (24 Hr) 150 Mg Tabcr PO QAM [facility] Enoxaparin Sodium 40 mg 06/28/23 09:00 06/29/23 09:04 Enoxaparin 40 Mg/0.4 Ml Syringe SUB-Q 40 mg DAILY [facility] Administration Escitalopram Oxalate 10 mg 06/28/23 09:00 Escitalopram Oxalate 10 Mg Tablet PO DAILY [facility] Lactated Ringer's 1,000 mls @ 100 mls/hr 06/27/23 09:50 06/29/23 12:15 Lr - Lactated Ringers Iv IV CONT 100 mls/hr .Q10H [facility] Administration Morphine Sulfate 2 mg 06/27/23 11:06 06/27/23 22:35 Morphine Sulfate (*Crx) 2 Mg/Ml Inj IV PUSH 2 mg Q4H PRN Administration Pain 7-10 Ondansetron HCl 4 mg 06/27/23 11:07 06/28/23 12:43 Ondansetron Inj 4 Mg/2 Ml Vial IV PUSH 4 mg Q4H PRN Administration Nausea And Vomiting Pantoprazole Sodium 40 mg 06/28/23 14:25 06/29/23 09:04 Pantoprazole Sodium Iv 40 Mg Vial IV PUSH 40 mg QAM [facility] Administration Pravastatin Sodium 40 mg 06/28/23 21:00 Pravastatin Sodium 20 Mg Tablet PO QHS [facility] Quetiapine Fumarate 25 mg 06/28/23 21:00 06/28/23 20:41 Quetiapine Fumarate 25 Mg Tablet PO 25 mg QHS [facility] Administration Vitamin D 4,000 units 06/28/23 09:00 Cholecalciferol 1,000 Units Tablet PO DAILY [facility] Radiology Results: ITS Impressions Abdomen/Pelvis CT 06/27/23 08:26 IMPRESSION: Partial distal small bowel obstruction in region of ileocolic anastomosis Abdomen X-Ray 06/29/23 06:09 IMPRESSION: 1: No acute abdominal abnormality identified.
[2023-06-29] MEDS: BISACODYL 10 MG SUPPOSITORY RECTAL (13:18)
[2023-06-29 14:00] VITALS: BP 129/57; PULSE 86; RESP 22; TEMP 37.2; O2SAT 96
[2023-06-29] MEDS: MORPHINE SULFATE (*CRX) 2 MG/ML INJ IV PUSH (14:26)
[2023-06-29 20:00] VITALS: O2SAT 95
[2023-06-29 20:39] VITALS: BP 151/67; PULSE 89; RESP 16; TEMP 36.8; O2SAT 95
[2023-06-29] MEDS: QUEtiapine FUMARATE 25 MG TABLET PO (20:55)
[2023-06-30 05:15] VITALS: BP 139/64; PULSE 80; RESP 17; TEMP 36.9; O2SAT 96
[2023-06-30 06:35] LABS: Hematocrit 40.9 % (37.0-47.0); Mean Corpuscular HGB Conc 31.8 g/dl (32-36); Mean Corpuscular Hemoglobin 30.8 pg (26-34); Mean Corpuscular Volume 96.9 fl (80-100); Mean Platelet Volume 10.6 fl (7.4-10.4); Platelet Count Result 182 k/mm3 (150-375); Red Blood Count 4.22 M/mm3 (4.2-5.4); Red Cell Distribution Width 12.5 % (11.5-14.5); White Blood Count 8.7 K/mm3 (4.5-10.0)
[2023-06-30 06:39] LABS: Anion Gap 13 mmol/L (8-16); Blood Urea Nitrogen 6 mg/dL (7-17); Calcium 8.5 mg/dL (8.4-10.2); Carbon Dioxide 16 mmol/L (22-30); Chloride 103 mmol/L (98-107); Estimated CRCL calculation 89 ml/min; Estimated Glomerular Filt Rate > 60; Glucose 72 mg/dL (65-110); Potassium 3.2 mmol/L (3.4-5.0); Sodium 132 mmol/L (137-145)
[2023-06-30 07:13] LABS: Magnesium 1.9 mg/dL (1.6-2.3)
[2023-06-30] MEDS: LACTATED RINGERS 1,000 ML 100 ML IV CONT (08:13)
[2023-06-30] MEDS: PANTOPRAZOLE SODIUM IV 40 MG VIAL IV PUSH (08:14)
[2023-06-30] MEDS: ENOXAPARIN 40 MG/0.4 ML SYRINGE SUB-Q (08:14)
[2023-06-30 08:51] VITALS: O2SAT 96
[2023-06-30] MEDS: POTASSIUM CHLORIDE INJ 40 MEQ in SODIUM CHLORIDE 0.9% IV 500 ML 130 MEQ IVPB (09:07)
--- NOTE | 2023-06-30 09:52 | PM.PNGS ---
Progress Note: A&P Assessment and Plan (1) Partial small bowel obstruction: Code(s): K56.600 - Partial intestinal obstruction, unspecified as to cause Status: Acute Assessment and Plan: Clinically improving after having multiple bowel movements yesterday. Will try NG clamping trial today, and remove NG tube and start clear liquids if tolerated. (2) History of total colectomy: Code(s): Z90.49 - Acquired absence of other specified parts of digestive tract Status: Chronic Plan I have discussed the patient's case and plan of care with Dr. Ferrer. Subjective Subjective Date/Time Seen: 06/30/23 09:52 Patient reports: no new complaints, feels better, pain is less, flatus, bowel movement and afebrile Interval history: Patient doing better today. She feels less bloated and denies any abdominal pain this morning. She reports less tenderness. She has had 3 bowel movements since her Dulcolax suppository yesterday. She is passing lots of flatus this morning. No other complaints at this time. She did lose IV access and the IV access nurses at the bedside trying to put in a new IV. Exam Const: General: comfortable and no acute distress Orientation/consciousness: patient oriented x3 GI: Inspection: non-distended GI Palp: Yes Soft to palpation, Yes Tenderness to palpation present (GI) (mild diffuse tenderness/soreness), No Guarding due to palpation present (GI) and Yes Other GI palpation findings present (no peritoneal signs) Auscultation: normal bowel sounds Objective Data Vital Signs Vital Signs: Vital Signs - 24 hr 06/29/23 14:00 06/29/23 20:39 06/29/23 20:00 Temperature 98.9 F 98.3 F Pulse Rate 86 89 Respiratory Rate 22 H 16 Blood Pressure 129/57 L 151/67 H Pulse Oximetry 96 95 95 Oxygen Delivery Room Air Fraction of Inspired Oxygen 06/30/23 05:15 06/30/23 08:51 Temperature 98.4 F Pulse Rate 80 Respiratory Rate 17 Blood Pressure 139/64 Pulse Oximetry 96 96 Oxygen Delivery Room Air Fraction of Inspired Oxygen 21 Intake/Output Intake/Output: Intake & Output 06/27/23 06/28/23 06/29/23 06/30/23 23:59 23:59 23:59 23:59 Intake Total 1846.2 2166.7 2916.7 1200 Output Total 50 50 60 Balance 1796.2 2116.7 2856.7 1200 Meds/Results Medications: Active Medications Generic Name Dose Route Start Last Admin Trade Name Freq PRN Reason Stop Dose Admin Bupropion HCl 150 mg 06/28/23 09:00 Bupropion Hcl Xl (24 Hr) 150 Mg Tabcr PO QAM [facility] Enoxaparin Sodium 40 mg 06/28/23 09:00 06/30/23 08:14 Enoxaparin 40 Mg/0.4 Ml Syringe SUB-Q 40 mg DAILY [facility] Administration Escitalopram Oxalate 10 mg 06/28/23 09:00 Escitalopram Oxalate 10 Mg Tablet PO DAILY [facility] Lactated Ringer's 1,000 mls @ 100 mls/hr 06/27/23 09:50 06/30/23 08:13 Lr - Lactated Ringers Iv IV CONT 100 mls/hr .Q10H [facility] Administration Magnesium Sulfate 2 gm in 50 mls @ 25 mls/hr 06/30/23 08:45 Magnesium Sulf 2 Gm/Water 50ml IVPB 06/30/23 10:44 ONCE ONE Potassium Chloride 40 meq/ 520 mls @ 130 mls/hr 06/30/23 09:00 06/30/23 09:07 Sodium Chloride IVPB 06/30/23 12:59 130 mls/hr ONCE ONE Administration Morphine Sulfate 2 mg 06/27/23 11:06 06/29/23 14:26 Morphine Sulfate (*Crx) 2 Mg/Ml Inj IV PUSH 2 mg Q4H PRN Administration Pain 7-10 Ondansetron HCl 4 mg 06/27/23 11:07 06/28/23 12:43 Ondansetron Inj 4 Mg/2 Ml Vial IV PUSH 4 mg Q4H PRN Administration Nausea And Vomiting Pantoprazole Sodium 40 mg 06/28/23 14:25 06/30/23 08:14 Pantoprazole Sodium Iv 40 Mg Vial IV PUSH 40 mg QAM [facility] Administration Pravastatin Sodium 40 mg 06/28/23 21:00 Pravastatin Sodium 20 Mg Tablet PO QHS [facility] Quetiapine Fumarate 25 mg 06/28/23 21:00 06/29/23 20:55 Quetiapine Fumarate 25 Mg Tablet PO 25 mg QHS [facility] Administration Vitamin D 4,000 units 06/28/23 09:00 Cholecalciferol 1,000 Units Tablet PO
[2023-06-30 11:00] VITALS: BMI 26.6
[2023-06-30 13:58] VITALS: BP 154/71; PULSE 86; RESP 18; TEMP 36.5; O2SAT 98
--- NOTE | 2023-06-30 16:46 | PM.IMPN ---
Progress Note: A&P Assessment and Plan (1) Partial small bowel obstruction: Code(s): K56.600 - Partial intestinal obstruction, unspecified as to cause Status: Acute Assessment and Plan: CT with partial distal small bowel obstruction in region of ileocolic anastomosis Surgery consulted and rec's appreciated Await return of bowel function May need small bowel follow through if she is still not passing flatus in a couple of days NG tube to LIWS NPO 06/27: 50 mils out from NG tube overnight. Bilious. Having some nausea but passing gas. No bowel movement. Will start Protonix. 06/28: Received Dulcolax suppository yesterday 06/28. Surgery to repeat dose today. If no improvement by tomorrow she will have a small-bowel follow-through. 06/29: NG clamped in trialing clear liquids. 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 She gives a 1 day history of moderate to severe abdominal pain described as dull and intermittently sharp in nature associated with nausea. The symptoms are similar to those she has experienced with prior bowel obstructions. Last normal bowel movement was yesterday morning. 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 She denies fever, chills, sweats, chest pain, shortness of breath, vomiting, hematochezia, and melena. CT scan showed evidence of a partial small-bowel obstruction and she is being admitted in this setting for further treatment. At the time my evaluation she is resting comfortably.? She continues to have intermittent abdominal pain but is overall feeling a bit better. She denies fever, chills, sweats, recent cold and flu symptoms, chest pain, shortness of breath, and vomiting. Interval history: 06/27: Mrs. Paez is doing well today. She does say that she still has some right lower quadrant abdominal tenderness. She is having some intermittent nausea. She is passing gas but she has not had a bowel movement. Belly is soft and nondistended. NG tube with only 50 mL out overnight. 06/28: No acute events overnight. NG tube to remain low wall suction given continued abdominal discomfort. The surgery will repeat suppository. If she does not show improvement by tomorrow they will order a small-bowel follow-through. 06/29: Patient had 2 bowel movements yesterday after the suppository. Her NG is clamped this morning and she is tolerating a clear liquid diet so far. Hopefully her NG will be removed later today and she can advance her diet tomorrow. Review of Systems Review of Systems: Twelve systems were reviewed and are negative except for as per HPI. Exam Narrative: General: well appearing, well developed, well nourished, appears stated age. HEENT: normocephalic, atraumatic. Mucous membranes moist. EOMI, PERRLA, bilateral sclera anicteric, no conjunctival injection. Neck supple without JVD, lymphadenopathy, or bruit. NG tube to low intermittent wall suction. Respiratory: clear to auscultation bilaterally. No rales/rhonic/wheezes. Cardiovascular: Regular rate and rhythm, normal S1-S2 upon auscultation. No murmurs, rubs, or clicks. PMI i
[2023-06-30] MEDS: MAGNESIUM SULF 2 GM/WATER 50ML 2 GM/50 ML BAG IVPB (17:04)
[2023-06-30 20:00] VITALS: O2SAT 96
[2023-06-30 20:45] VITALS: BP 128/64; PULSE 79; RESP 17; TEMP 37.1; O2SAT 96
[2023-06-30] MEDS: QUEtiapine FUMARATE 25 MG TABLET PO (21:49)
[2023-07-01 05:21] VITALS: BP 127/63; PULSE 70; RESP 17; TEMP 36.2; O2SAT 96
--- NOTE | 2023-07-01 07:56 | PM.IMPN ---
Progress Note: A&P Assessment and Plan (1) Partial small bowel obstruction: Code(s): K56.600 - Partial intestinal obstruction, unspecified as to cause Status: Acute Assessment and Plan: CT with partial distal small bowel obstruction in region of ileocolic anastomosis Surgery consulted and rec's appreciated Await return of bowel function May need small bowel follow through if she is still not passing flatus in a couple of days NG tube to LIWS NPO 06/27: 50 mils out from NG tube overnight. Bilious. Having some nausea but passing gas. No bowel movement. Will start Protonix. 06/28: Received Dulcolax suppository yesterday 06/28. Surgery to repeat dose today. If no improvement by tomorrow she will have a small-bowel follow-through. 06/29: NG clamped in trailing clear liquids. Received Potassium Chloride 40 meq IVP x 1 and Mg sulfate 2 gram x 1. (2) Depression with anxiety: Code(s): F41.8 - Other specified anxiety disorders Status: Acute Assessment and Plan: Stable on home agents Resume Bupropion, escitalopram, and Seroquel once NG removed (3) Mixed hyperlipidemia: Code(s): E78.2 - Mixed hyperlipidemia Status: Acute Assessment and Plan: On pravastatin Lipid panel was reviewed Subjective Date/time seen: 07/01/23 07:56 Interval history: HPI obtained from the chart, This is a 72-year-old female with history of colon cancer status post sigmoidectomy with colostomy in March 2002, large villous adenoma of the ascending colon status post complete total abdominal colectomy with ileorectal anastomosis in May 2002, and small-bowel obstructions who presented to the emergency department for evaluation of abdominal pain. She gives a 1 day history of moderate to severe abdominal pain described as dull and intermittently sharp in nature associated with nausea. The symptoms are similar to those she has experienced with prior bowel obstructions. Last normal bowel movement was yesterday morning. 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 She denies fever, chills, sweats, chest pain, shortness of breath, vomiting, hematochezia, and melena. CT scan showed evidence of a partial small-bowel obstruction and she is being admitted in this setting for further treatment. At the time my evaluation she is resting comfortably.? She continues to have intermittent abdominal pain but is overall feeling a bit better. She denies fever, chills, sweats, recent cold and flu symptoms, chest pain, shortness of breath, and vomiting. Interval history: 06/27: Mrs. Paez is doing well today. She does say that she still has some right lower quadrant abdominal tenderness. She is having some intermittent nausea. She is passing gas but she has not had a bowel movement. Belly is soft and nondistended. NG tube with only 50 mL out overnight. 06/28: No acute events overnight. NG tube to remain low wall suction given continued abdominal discomfort. The surgery will repeat suppository. If she does not show improvement by tomorrow they will order a small-bowel follow-through. 06/29: Patient had 2 bowel movements yesterday after the suppository. Her NG is clamped this morning and she is tolerating a clear liquid diet so far. Hopefully her NG will be removed later today and she can advance her diet tomorrow. 06/30: Doing well today. Her abdomen is still distended but soft and non-tender. She is passing flatus. She tolerated her full liquid diet. If she tolerates her dinner tonight she can go home. Review of Systems Review of Systems: Twelve systems were reviewed and are negative except for as per HPI. Exam Narrative: General: well appearing, well developed, well nourished, appears stated age. HEENT: normocephalic, atraumatic. Mucous membranes moist. EOMI, PERRLA, bilateral sclera anicteric, no conjunctival injection. Neck supp
[2023-07-01 08:00] VITALS: PULSE 70; RESP 17; O2SAT 96
[2023-07-01] MEDS: LACTATED RINGERS 1,000 ML 100 ML IV CONT (08:12)
[2023-07-01] MEDS: PANTOPRAZOLE SODIUM IV 40 MG VIAL IV PUSH (08:13)
[2023-07-01] MEDS: ENOXAPARIN 40 MG/0.4 ML SYRINGE SUB-Q (08:13)
[2023-07-01 09:39] LABS: Alanine Aminotransferase 17 U/L (6-35); Albumin Level 3.7 g/dL (3.5-5.1); Alkaline Phosphatase 70 U/L (38-126); Anion Gap 6 mmol/L (8-16); Aspartate Amino Transferase 25 U/L (14-36); Blood Urea Nitrogen 3 mg/dL (7-17); Calcium 8.9 mg/dL (8.4-10.2); Carbon Dioxide 23 mmol/L (22-30); Chloride 105 mmol/L (98-107); Estimated CRCL calculation 89 ml/min; Estimated Glomerular Filt Rate > 60; Glucose 180 mg/dL (65-110); Potassium 3.2 mmol/L (3.4-5.0); Sodium 134 mmol/L (137-145)
[2023-07-01 09:50] VITALS: BP 133/62; PULSE 81; RESP 20; TEMP 36.2; O2SAT 96
--- NOTE | 2023-07-01 10:11 | PM.PNGS ---
Progress Note: A&P Assessment and Plan (1) Partial small bowel obstruction: Code(s): K56.600 - Partial intestinal obstruction, unspecified as to cause Status: Acute Assessment and Plan: Resolving. Bowels are moving. Will advance diet as tolerated to a regular diet. Okay to discharge the patient from a surgical standpoint later today or tomorrow, once tolerating a solid diet. No follow-up with surgery needed. (2) History of total colectomy: Code(s): Z90.49 - Acquired absence of other specified parts of digestive tract Status: Chronic Subjective Subjective Date/Time Seen: 07/01/23 10:11 Patient reports: no new complaints, tolerating liquids well, flatus and bowel movement Interval history: Doing well today. Denies any abdominal pain, nausea, or vomiting. Has already had a bowel movement this morning. Exam Const: General: comfortable and no acute distress GI: Inspection: non-distended GI Palp: Yes Soft to palpation, Yes Tenderness to palpation present (GI) (improving diffuse mild tenderness, no focal tenderness, no peritoneal signs) and No Guarding due to palpation present (GI) Auscultation: normal bowel sounds Objective Data Vital Signs Vital Signs: Vital Signs - 24 hr 06/30/23 13:58 06/30/23 20:45 06/30/23 20:00 Temperature 97.7 F 98.8 F Pulse Rate 86 79 Respiratory Rate 18 17 Blood Pressure 154/71 H 128/64 Pulse Oximetry 98 96 96 Oxygen Delivery Room Air Fraction of Inspired Oxygen 07/01/23 05:21 07/01/23 08:00 07/01/23 09:50 Temperature 97.2 F L 97.2 F L Pulse Rate 70 70 81 Respiratory Rate 17 17 20 Blood Pressure 127/63 133/62 Pulse Oximetry 96 96 96 Oxygen Delivery Room Air Fraction of Inspired Oxygen 21 Intake/Output Intake/Output: Intake & Output 06/28/23 06/29/23 06/30/23 07/01/23 23:59 23:59 23:59 23:59 Intake Total 2166.7 2916.7 3390 118 Output Total 50 60 0 Balance 2116.7 2856.7 3390 118 Meds/Results Medications: Active Medications Generic Name Dose Route Start Last Admin Trade Name Freq PRN Reason Stop Dose Admin Bupropion HCl 150 mg 06/28/23 09:00 Bupropion Hcl Xl (24 Hr) 150 Mg Tabcr PO QAM TAYLOR Enoxaparin Sodium 40 mg 06/28/23 09:00 07/01/23 08:13 Enoxaparin 40 Mg/0.4 Ml Syringe SUB-Q 40 mg DAILY [facility] Administration Escitalopram Oxalate 10 mg 06/28/23 09:00 Escitalopram Oxalate 10 Mg Tablet PO DAILY [facility] Lactated Ringer's 1,000 mls @ 60 mls/hr 06/27/23 09:50 07/01/23 08:12 Lr - Lactated Ringers Iv IV CONT 100 mls/hr .[id number] [facility] Administration Morphine Sulfate 2 mg 06/27/23 11:06 06/29/23 14:26 Morphine Sulfate (*Crx) 2 Mg/Ml Inj IV PUSH 2 mg Q4H PRN Administration Pain 7-10 Ondansetron HCl 4 mg 06/27/23 11:07 06/28/23 12:43 Ondansetron Inj 4 Mg/2 Ml Vial IV PUSH 4 mg Q4H PRN Administration Nausea And Vomiting Pantoprazole Sodium 40 mg 06/28/23 14:25 07/01/23 08:13 Pantoprazole Sodium Iv 40 Mg Vial IV PUSH 40 mg QAM [facility] Administration Pravastatin Sodium 40 mg 06/28/23 21:00 Pravastatin Sodium 20 Mg Tablet PO QHS [facility] Quetiapine Fumarate 25 mg 06/28/23 21:00 06/30/23 21:49 Quetiapine Fumarate 25 Mg Tablet PO 25 mg QHS [facility] Administration Vitamin D 4,000 units 06/28/23 09:00 Cholecalciferol 1,000 Units Tablet PO DAILY [facility] Radiology Results: ITS Impressions Abdomen/Pelvis CT 06/27/23 08:26 IMPRESSION: Partial distal small bowel obstruction in region of ileocolic anastomosis Abdomen X-Ray 06/29/23 06:09 IMPRESSION: 1: No acute abdominal abnormality identified. Labs Labs: Laboratory Results - last 24 hr 07/01/23 09:17 Sodium 134 L Potassium 3.2 L Chloride 105 Carbon Dioxide 23 Anion Gap 6 L BUN 3 L Creatinine 0.40 L Estim Creat Clear Calc 89 Estimated GFR > 60 Glucose 180 H Calcium 8.9 Total Bilirubin 1.0 AST 25 ALT 17 Alkaline Phosph
[2023-07-01 14:00] VITALS: BP 115/47; PULSE 91; RESP 22; TEMP 36.5; O2SAT 99
--- NOTE | 2023-07-01 15:10 | PC.NURSE ---
On 07/01/23, the student, Lorena Webb, provided care and completed [facility] documentation on this patient. I have reviewed the student's documentation and agree with the findings.
--- NOTE | 2023-07-01 15:56 | PM.DS ---
DS: Admitting Diagnosis Discharge Date 06-30 Admitting Diagnosis Abdominal pain DS: Discharge Diagnosis Discharge Diagnosis (1) Partial small bowel obstruction: Code(s): K56.600 - Partial intestinal obstruction, unspecified as to cause Status: Acute Assessment and Plan: CT with partial distal small bowel obstruction in region of ileocolic anastomosis Surgery consulted and rec's appreciated Await return of bowel function May need small bowel follow through if she is still not passing flatus in a couple of days NG tube to LIWS NPO 06/27: 50 mils out from NG tube overnight. Bilious. Having some nausea but passing gas. No bowel movement. Will start Protonix. 06/28: Received Dulcolax suppository yesterday 06/28. Surgery to repeat dose today. If no improvement by tomorrow she will have a small-bowel follow-through. 06/29: NG clamped in trailing clear liquids. Received Potassium Chloride 40 meq IVP x 1 and Mg sulfate 2 gram x 1. 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 She gives a 1 day history of moderate to severe abdominal pain described as dull and intermittently sharp in nature associated with nausea. The symptoms are similar to those she has experienced with prior bowel obstructions. Last normal bowel movement was yesterday morning. 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 She denies fever, chills, sweats, chest pain, shortness of breath, vomiting, hematochezia, and melena. CT scan showed evidence of a partial small-bowel obstruction and she is being admitted in this setting for further treatment. At the time my evaluation she is resting comfortably.? She continues to have intermittent abdominal pain but is overall feeling a bit better. She denies fever, chills, sweats, recent cold and flu symptoms, chest pain, shortness of breath, and vomiting. Interval history: 06/27:? Mrs. Paez is doing well today.? She does say that she still has some right lower quadrant abdominal tenderness.? She is having some intermittent nausea.? She is passing gas but she has not had a bowel movement.? Belly is soft and nondistended.? NG tube with only 50 mL out overnight.? 06/28:? No acute events overnight.? NG tube to remain low wall suction given continued abdominal discomfort.? The surgery will repeat suppository.? If she does not show improvement by tomorrow they will order a small-bowel follow-through. 06/29:? Patient had 2 bowel movements yesterday after the suppository.? Her NG is clamped this morning and she is tolerating a clear liquid diet so far.? Hopefully her NG will be removed later today and she can advance her diet tomorrow. 06/30: Doing well today. Her abdomen is still distended but soft and non-tender. She is passing flatus. She tolerated her full liquid diet. If she tolerates her dinner tonight she can go home. Status at Discharge Cognitive/behavioral status at discharge: A&Ox4 Time Spent with Patient Time attestation: Total time spent providing and/or coordinating discharge services:45 Exam Narrative: General: well appearing, well developed
== END 2023-07-01 18:25 | disposition home or self-care (01) | DRG 390 ==
LOC: ANHED 09:49 → ANH3MEDSUR 10:11
PROVIDERS: Surgery; Admitting Provider Internal Medicine; Emergency Provider Preventive Medicine Aerospace Medicine; PCP Family Medicine; Visit Provider Nurse Practitioner Acute Care
DX: K56.690 Other partial intestinal obstruction (principal); F41.8 Other specified anxiety disorders; E78.2 Mixed hyperlipidemia; D64.9 Anemia, unspecified; K21.9 Gastro-esophageal reflux disease without esophagitis; Z85.038 Personal history of other malignant neoplasm of large intestine; Z85.118 Personal history of other malignant neoplasm of bronchus and lung; Z86.16 Personal history of COVID-19; Z90.49 Acquired absence of other specified parts of digestive tract
CPT/HCPCS: 36415; 74018; 74177; 80048; 80053; 80061; 83605; 83690; 83735; 85025; 85027; 85610; 96361; 96374; 96375; 99285; A9270; C9113; G0378; J1650; J2270; J2405; J3475; J3480; J7030; J7040; J7120; Q9967

== ENCOUNTER → 2023-07-10 15:17 | Outpatient (CLI) | payer MEDICARE, OTHER, SELFPAY ==
--- NOTE | ~2023-07-10 | XR_ITS ---
XR cervical spine 4-5V DATE: 07/10/2023 15:34 INDICATION: Neck pain with occipital headache TECHNIQUE: AP, open-mouth, lateral, bilateral oblique views COMPARISON: None FINDINGS: Osteopenia. Cervical curvature is intact. C1 and C2 are normally aligned and the odontoid process is intact. Moderate loss of interspace height and mild spurring at C4-5 and C5-6 and C6-7. There is uncovertebral joint spurring encroaching upon the anterior aspect of the right C5 and left C 5, C6 and C7 neural foramina. No fracture or dislocation or locked facet or prevertebral soft tissue swelling. Prominent osteoarthritic changes at both glenohumeral joints. IMPRESSION: Moderate cervical spondylosis; no fracture or dislocation Reviewed, dictated and finalized at location B.
== END ==
PROVIDERS: PCP Family Medicine; Visit Provider Family Medicine
DX: M47.892 Other spondylosis, cervical region (principal)
CPT/HCPCS: 72050

== ENCOUNTER 2023-08-20 03:16 | Inpatient (IN) | payer MEDICARE, OTHER, SELFPAY ==
--- NOTE | ~2023-08-20 | XR_ITS ---
Supine and upright views of the abdomen Clinical history: Abdominal pain COMPARISON: 08/20/2023 Findings: Mildly distended bowel are present predominantly in the right abdomen. No free air evident. No abnormal mass lesion or calcification is seen. Osseous structures are intact. Impression: Mildly distended small bowel loops, nonspecific. Correlate for ileus or partial small bowel obstructi on. Reviewed, dictated and finalized at location . Impression: Mildly distended small bowel loops, nonspecific. Correlate for ileus or partial small bowel obstruction.
--- NOTE | ~2023-08-20 | CT_ITS ---
CT of the Abdomen and Pelvis: Indication: Abdominal pain Technique: 2.5 mm axial scans were obtained through the abdomen and pelvis following intravenous adm inistration of 100 cc of Omnipaque 350. Dose reduction technique was used on this scan by utilizing a utomated exposure control and iterative reconstruction technique. The dose-length product (DLP) was 3 24.89 mGy-cm. COMPARISON: 06/27/2023 Findings: Scans through the lung bases are unremarkable. The liver, spleen, pancreas, gallbladder, adrenals and kidneys are within normal limits. No evidence of aortic aneurysm. No lymphadenopathy. There are multiple dilated loops of small bowel, projects in the right side of the abdomen. There is probable transition point in the right lower quadrant. Status post extensive colectomy. Images through the pelvis were performed. Urinary bladder unremarkable. No pelvic mass seen. No ascit es. Impression: Small bowel obstruction, as detailed above. Status post prior extensive colectomy. Reviewed, dictated and finalized at location . Impression: Small bowel obstruction, as detailed above. Status post prior extensive colectomy.
--- NOTE | ~2023-08-20 | XR_ITS ---
Upright portable view of the abdomen Clinical history: NG tube placement Findings: NG tube is in place, side port just below the diaphragm. Probable dilated small bowel loops in the right abdomen. No free air in. No abnormal mass lesion or calcification is seen. Osseous stru ctures are intact. Impression: NG tube in satisfactory position. Suspected small bowel obstruction. Reviewed, dictated and finalized at [facility]. Impression: NG tube in satisfactory position. Suspected small bowel obstruction.
--- NOTE | ~2023-08-20 | XR_ITS ---
EXAMINATION: XR sm bowel follow through WS DATE: 08/20/2023 16:41 INDICATION: Small bowel obstruction. TECHNIQUE: [employer] radiograph(s) of the abdomen was/were obtained. Water-soluble oral contrast was admi nistered by the patient's existing nasogastric tube, and sequential radiographs of the abdomen were o btained until oral contrast was noted to be in the colon. COMPARISON: CT dated 08/20/2023 FINDINGS: Nasogastric tube with distal tip in the body of the stomach. There are some residual excreted contra st in the bladder from the earlier contrast-enhanced CT. Transit time from the stomach to proximal co serena was approximately 2-3 hours. There is normal caliber and mucosal fold pattern throughout the smal l bowel. Contrast extends to the rectum on the 3 hour imaging. Majority of the colon is not visualize d consistent with prior subtotal colectomy with pelvic ileocolic anastomosis evident on the prior CT. There is significant residual contrast in the stomach even on the 3 hour images suggestive of gastro paresis. There is a small sliding-type hiatal hernia with gastroesophageal reflux evident on the 1 ho ur and 2 hour images. IMPRESSION: 1. Normal small bowel transit time with no dilated loops of bowel to suggest obstruction. 2. Status post subtotal colectomy with pelvic ileocolic anastomosis. 3. Delayed gastric emptying suggesting gastroparesis with small sliding-type hiatal hernia and gastro esophageal reflux. Reviewed, dictated and finalized at location A. IMPRESSION: 1. Normal small bowel transit time with no dilated loops of bowel to suggest ob struction. 2. Status post subtotal colectomy with pelvic ileocolic anastomosis. 3. Delayed gastric emptying suggesting gastroparesis with small sliding-type hi atal hernia and gastroesophageal reflux.
--- NOTE | 2023-08-20 03:24 | ECG_ITS ---
SEE SCANNED COPY FOR CONFIRMED REPORT MTDD
[2023-08-20 03:28] VITALS: BP 150/67; PULSE 65; RESP 16; TEMP 36.6; O2SAT 97
[2023-08-20 03:37] LABS: Basophils Absolute Auto 0.1 K/mm3 (0.0-0.1); Basophils Percent Auto 0.5 % (0.2-1.2); Eosinophils Percent Auto 0.1 % (0-4.4); Hematocrit 43.6 % (37.0-47.0); Hemoglobin 14.8 g/dL (12.0-15.0); Immature Granulocyte Absolute 0.03 K/mm3 (0.00-0.031); Immature Granulocyte Percent A 0.3 % (0-0.5); Lymphocytes Absolute Auto 1.93 K/mm3 (0.9-3.2); Lymphocytes Percent Auto 18.9 % (18.3-44.2); Mean Corpuscular HGB Conc 33.9 g/dl (32-36); Mean Corpuscular Volume 91.2 fl (80-100); Mean Platelet Volume 10.5 fl (7.4-10.4); Monocytes Absolute Auto 0.4 K/mm3 (0.1-0.6); Monocytes Percent Auto 4.2 % (2.6-8.5); Neutrophils Absolute Auto 7.8 K/mm3 (1.3-6.7); Platelet Count Result 258 k/mm3 (150-375); Red Blood Count 4.78 M/mm3 (4.2-5.4); Red Cell Distribution Width 12.7 % (11.5-14.5); White Blood Count 10.2 K/mm3 (4.5-10.0)
[2023-08-20] MEDS: SODIUM CHLORIDE 0.9% IV 2,000 ML 999 ML IV CONT (03:42)
[2023-08-20] MEDS: ONDANSETRON INJ 4 MG/2 ML VIAL IV PUSH (03:44)
[2023-08-20] MEDS: HYDROmorphone HCL INJ (*CRX) 1 MG/ML SYR 0.5 MG IV PUSH ×3 (03:45→12:04)
[2023-08-20 03:50] LABS: Alanine Aminotransferase 20 U/L (6-35); Albumin Level 4.6 g/dL (3.5-5.1); Alkaline Phosphatase 85 U/L (38-126); Anion Gap 9 mmol/L (4-12); Aspartate Amino Transferase 28 U/L (14-36); Bilirubin,Total 0.8 mg/dL (0.2-1.3); Blood Urea Nitrogen 18 mg/dL (7-17); Calcium 9.8 mg/dL (8.4-10.2); Carbon Dioxide 24 mmol/L (22-30); Chloride 104 mmol/L (98-107); Estimated CRCL calculation 46 ml/min; Estimated Glomerular Filt Rate > 60; Glucose 177 mg/dL (65-110); Lipase 67 U/L (23-300); Potassium 4.3 mmol/L (3.4-5.0); Sodium 137 mmol/L (137-145)
[2023-08-20 03:51] LABS: Partial Thromboplastin Time 25.5 Seconds (22.3-36.8); Prothrombin Time 13.4 Seconds (11.1-14.7)
[2023-08-20 03:52] LABS: Lactic Acid Reflex 1.3 mmol/L (0.7-2.0)
[2023-08-20 04:36] LABS: Appearance Urine Clear (Clear); Bilirubin Urine Negative (Negative); Blood Urine Negative (Negative); Color Urine Yellow (Yellow); Glucose Urine UA Negative (Negative); Ketones Urine Negative (Negative); Leukocyte Esterase Ur Negative LEU/UL (Negative); Nitrate Urine Negative (Negative); Protein Urine Negative (Negative); Urobilinogen Urine 0.2 mg/dL (<2.0)
[2023-08-20 04:40] VITALS: BP 151/62; PULSE 92; RESP 15; O2SAT 93
[2023-08-20 04:46] LABS: Add Urine Microscopic? NO
--- NOTE | 2023-08-20 05:00 | ED.GENADULT ---
HPI - General Adult General Chief complaint: Abdominal Pain Stated complaint: abd pain Time Seen by Provider: 08/20/23 03:24 History of Present Illness HPI narrative: this is a 72-year-old female with a history of partial colectomy due to colon cancer and multiple small bowel obstruction presenting with abdominal pain. Patient has had abdominal pain bloating, primarily right side. She has been nauseous but no vomiting. She had a small bowel movement earlier today. She has not passed gas since then. Patient denies fevers chills chest pain pain or urinary symptoms. Related Data Home Medications Medication Instructions Recorded Confirmed lysine 500 mg tablet (L-Lysine) 500 mg PO DAILY 02/24/19 07/10/23 [id number] 8 mg-folic 400 1 tablet PO DAILY 02/24/19 07/10/23 mcg-K 50 mcg-lutein 300 mcg tablet (Centrum Silver Women) triamcinolone acetonide 55 mcg 1 spray intranasal DAILY 10/22/21 07/10/23 nasal spray aerosol (Nasacort Allergy) cholecalciferol (vitamin D3) 50 4,000 unit PO DAILY 04/23/22 07/10/23 mcg (2,000 unit) capsule magnesium oxide 250 mg PO BID 07/10/23 07/10/23 Allergies Allergy/AdvReac Type Severity Reaction Status Date / Time No Known Allergies Allergy Verified 06/27/23 07:42 [facility] Past Medical History Medical History Adult BMI 27.0-27.9 kg/sq m Anemia Hemoglobin was low at 11.5 on 09/11/2022.Hemoglobin 13.8 with iron 104 with 34% saturation and ferritin 43 with vitamin B12 485 and folic acid 24 on 10/24/2022 At low risk for fall At moderate risk for fall (08/2021) fell on stairs. BMI 24.0-24.9, adult BMI 26.0-26.9,adult Breast cancer screening by mammogram Normal mammogram 07/11/2021. Chronic anxiety Chronic neck pain X-ray of the C-spine on 07/10/2023 with moderate spo Colon polyp, hyperplastic (11/29/21) rectal polyps 11/29/2021 with recheck in 5 years. Contact dermatitis due to plant COVID-19 (04/03/22) tested positive 04/04/2022. Paxlovid 04/05/2022. Essential (primary) hypertension GERD (gastroesophageal reflux disease) (~03/2022) Hospital discharge follow-up follow-up of small-bowel obstruction from 09/08/2022. Hypokalemia Potassium was low at 3.9 on 09/11/2022.Potassium normal at 4.3 With magnesium normal at 2.2 on 10/24/2022. Low magnesium level magnesium 1.9 on 06/30/2023 with low potassium 3.2 on 07/01/2023. Multiple fractures of ribs of right side (08/15/21) right posterior lateral rib fractures 8, 9, 10 08/15/2021. ER 08/19/2021. Nausea Overweight (BMI 25.0-29.9) Partial obstruction of small intestine Partial small bowel obstruction Secondary malignant neoplasm of unspecified lung Surgical History Surgical History Colon cancer metastasized to lung Lung metastasis resected 10 years ago no further recurrence History of total colectomy 2002 for cancer Family History Family History Sibling Diabetes mellitus Patient's sister is in good health Mother Patient's mother is , Onset Age: 81 Family history of malignant neoplasm of breast Father Family history of cardiovascular disease, Onset Age: 67 Hypertension Acute myocardial infarction Social History Social History Social History: Surrogate medical decision maker: Rodri Paez, spouse. Code status: Full code. Smoking status: Never smoker Alcohol intake: never Substance use: never Substance use type: does not use Do You Feel Safe in your Home?: Yes Lack of Transportation: No Lack of Food: Never True Current Housing: I Have Housing Concerned About Future Housing: No Difficulty Paying Gas/Electric Bills: No Difficulty Paying for Meds: No Currently Unemployed: No Education: High School Diploma/GED Difficulty w/ Childcare or Family Care: No
[2023-08-20 06:42] VITALS: BP 145/69; PULSE 75; RESP 17; O2SAT 95
[2023-08-20] MEDS: LACTATED RINGERS 1,000 ML 125 ML IV CONT ×2 (07:07→17:00)
[2023-08-20 07:14] VITALS: BP 147/92; PULSE 80; RESP 15; O2SAT 100
[2023-08-20 08:37] VITALS: BMI 26.6
--- NOTE | 2023-08-20 09:05 | PM.IMHP ---
H&P: HPI History of Present Illness Date/Time: 08/20/23 09:05 Chief Complaint: Abdominal pain Narrative: This is a 72-year-old female with past medical history of colon cancer status post sigmoidectomy with colostomy March of 2002 with complete total abdominal colectomy and ileorectal anastomosis and May of 2002, with frequent small bowel obstructions, depression, anxiety, and hyperlipidemia. She presented 5-14 with complaints of abdominal pain that started around 4:00 p.m. to the right lower quadrant. She describes the pain as sharp and intermittent in nature. Her abdomen is distended tender to palpation. She is not passing flatness and last bowel was yesterday at 0200. CT of abdomen and pelvis shows a small-bowel obstruction. NG tube was placed and she was started on IV fluids. General surgery was consulted and recs are appreciated. Review of Systems Review of Systems: All systems reviewed & are unremarkable except as noted in HPI and below PMFSH Past Medical History Medical History Adult BMI 27.0-27.9 kg/sq m Anemia Hemoglobin was low at 11.5 on 09/11/2022.Hemoglobin 13.8 with iron 104 with 34% saturation and ferritin 43 with vitamin B12 485 and folic acid 24 on 10/24/2022 At low risk for fall At moderate risk for fall (08/2021) fell on stairs. BMI 24.0-24.9, adult BMI 26.0-26.9,adult Breast cancer screening by mammogram Normal mammogram 07/11/2021. Chronic anxiety Chronic neck pain X-ray of the C-spine on 07/10/2023 with moderate spo Colon polyp, hyperplastic (11/29/21) rectal polyps 11/29/2021 with recheck in 5 years. Contact dermatitis due to plant COVID-19 (04/03/22) tested positive 04/04/2022. Paxlovid 04/05/2022. Essential (primary) hypertension GERD (gastroesophageal reflux disease) (~03/2022) Hospital discharge follow-up follow-up of small-bowel obstruction from 09/08/2022. Hypokalemia Potassium was low at 3.9 on 09/11/2022.Potassium normal at 4.3 With magnesium normal at 2.2 on 10/24/2022. Low magnesium level magnesium 1.9 on 06/30/2023 with low potassium 3.2 on 07/01/2023. Multiple fractures of ribs of right side (08/15/21) right posterior lateral rib fractures 8, 9, 10 08/15/2021. ER 08/19/2021. Nausea Overweight (BMI 25.0-29.9) Partial obstruction of small intestine Partial small bowel obstruction Secondary malignant neoplasm of unspecified lung Surgical History Surgical History Colon cancer metastasized to lung Lung metastasis resected in 2008, no further recurrence History of exploratory laparotomy 2014 ex lap with adhesiolysis for SBO History of total colectomy Obstructing sigmoid colon cancer in 2001 and had a sigmoid colon resection with end colostomy and treated with chemotherapy. Colonoscopy a few months later showed a colon polyp and she had a subtotal colectomy in 2002 with ileorectal anastomosis. Family History Family History Sibling Diabetes mellitus Patient's sister is in good health Mother Patient's mother is , Onset Age: 81 Family history of malignant neoplasm of breast Father Family history of cardiovascular disease, Onset Age: 67 Hypertension Acute myocardial infarction Social History Social History Social History: Surrogate medical decision maker: Rodri Paez, spouse. Code status: Full code. Smoking status: Never smoker Alcohol intake: never Substance use: never Substance use type: does not use Do You Feel Safe in your Home?: Yes Lack of Transportation: No Lack of Food: Never True Current Housing: I Have Housing Concerned About Future Housing: Decline to Answer Difficulty Paying Gas/Electric Bills: Decline to Answer Difficulty Paying for Meds: Decline to Answer Currently Unemployed: Decline to Answe
--- NOTE | 2023-08-20 09:25 | PM.CNGS ---
Assessment and Plan Assessment and plan (1) SBO (small bowel obstruction): Code(s): K56.609 - Unspecified intestinal obstruction, unspecified as to partial versus complete obstruction Status: Acute Assessment and Plan: Extensive history of abdominal surgeries and multiple recurrent small bowel obstructions as detailed in HPI. CT evidence again showing SBO. No peritoneal signs on exam. Lactic acid normal. Continue conservative management with NG decompression, bowel rest, IV fluids, and analgesics as needed. Follow closely with serial abdominal exams and imaging. Eventually consider water-soluble small bowel follow through to evaluate small bowel obstruction. (2) History of total colectomy: Code(s): Z90.49 - Acquired absence of other specified parts of digestive tract Status: Chronic Plan I have discussed the patient's case and plan of care with Dr. Squires. History of Present Illness Consult details Consult date: 08/20/23 Reason for consult: other (Small bowel obstruction) Requesting physician: Abundio Luz MD Narrative: This is a 72-year-old woman with a history of metastatic colon cancer with multiple previous abdominal surgeries and small bowel obstructions in the past. She is known to our service from previous hospitalizations. She presented with an obstructing sigmoid colon cancer in 2001 and had a sigmoid colon resection with end colostomy. She received chemotherapy and eventually had a colonoscopy through her colostomy a few months later with findings of a polyp that required her to go back to surgery. She of total colectomy with ileorectal anastomosis in 2002. She has since had multiple small-bowel obstruction requiring hospitalization the have been treated conservatively, other than one episode in 2013 when she was taken for an exploratory laparotomy and adhesiolysis by Dr. Miguel. Her most recent small-bowel obstruction was 2 months ago that resolved with NG tube decompression. She reports doing well after discharge, up until yesterday. Around 4:00 p.m. after eating chicken fajitas, she developed cramping generalized abdominal pain. This pain progressively got worse throughout the night. She developed bloating and nausea, but no vomiting. This felt similar to previous bowel obstructions and she presented to the ER early this morning. [place] [address], lactic acid 1.3. CT scan of the abdomen and pelvis showed a small-bowel obstruction, and status post prior extensive colectomy. NG tube was placed and the patient was admitted. Our service was consulted for the small-bowel obstruction. She is seen on the medical floor. She continues to have pain and is requiring IV Dilaudid. No flatus or BMs. She does report taking MiraLax after her pain started yesterday and had 1 loose stool around 9:00 p.m. No bowel function since then. Review of Systems Review of Systems: All systems reviewed & are unremarkable except as noted in HPI and below PMFSH Past Medical History Medical History Adult BMI 27.0-27.9 kg/sq m Anemia Hemoglobin was low at 11.5 on 09/11/2022.Hemoglobin 13.8 with iron 104 with 34% saturation and ferritin 43 with vitamin B12 485 and folic acid 24 on 10/24/2022 At low risk for fall At moderate risk for fall (08/2021) fell on stairs. BMI 24.0-24.9, adult BMI 26.0-26.9,adult Breast cancer screening by mammogram Normal mammogram 07/11/2021. Chronic anxiety Chronic neck pain X-ray of the C-spine on 07/10/2023 with moderate spo Colon polyp, hyperplastic (11/29/21) rectal polyps 11/29/2021 with recheck in 5 years. Contact dermatitis due to plant COVID-19 (04/03/22) tested positive 04/04/2022. Paxlovid 04/05/2022. Essential (primary) hypertension GERD (gastroesophageal reflux disease) (~03/2022) Hospital discharge follow-up follow-up of small-bowel obstruction from 09/08/2022. Hypokalemia Potassium was
[2023-08-20 14:00] VITALS: BP 135/85; PULSE 82; RESP 18; TEMP 36.7; O2SAT 100
--- NOTE | 2023-08-20 19:23 | PC.NURSE ---
On 08/20/23, the PROFESSOR OF THEOLOGY, Lourdes Escudero, provided care and completed [employer] documentation on this patient. I have reviewed the PROFESSOR OF THEOLOGY's documentation and agree with the findings.
[2023-08-20 21:11] VITALS: BP 121/63; PULSE 67; RESP 20; TEMP 36.7; O2SAT 92
[2023-08-21] MEDS: LACTATED RINGERS 1,000 ML 125 ML IV CONT ×2 (01:00→09:23)
[2023-08-21 05:16] VITALS: BP 136/73; PULSE 68; RESP 20; TEMP 37; O2SAT 95
[2023-08-21 06:29] LABS: Hematocrit 39.1 % (37.0-47.0); Hemoglobin 12.4 g/dL (12.0-15.0); Mean Corpuscular HGB Conc 31.7 g/dl (32-36); Mean Corpuscular Hemoglobin 30.8 pg (26-34); Mean Corpuscular Volume 97.3 fl (80-100); Platelet Count Result 188 k/mm3 (150-375); Red Blood Count 4.02 M/mm3 (4.2-5.4); Red Cell Distribution Width 13.3 % (11.5-14.5); White Blood Count 6.9 K/mm3 (4.5-10.0)
[2023-08-21 06:55] LABS: Anion Gap 6 mmol/L (4-12); Blood Urea Nitrogen 12 mg/dL (7-17); Calcium 8.9 mg/dL (8.4-10.2); Carbon Dioxide 23 mmol/L (22-30); Chloride 116 mmol/L (98-107); Estimated CRCL calculation 70 ml/min; Estimated Glomerular Filt Rate > 60; Glucose 117 mg/dL (65-110); Magnesium 2.2 mg/dL (1.6-2.3); Potassium 3.7 mmol/L (3.4-5.0); Sodium 145 mmol/L (137-145)
--- NOTE | 2023-08-21 10:01 | PM.IMPN ---
Progress Note: A&P Assessment and Plan (1) SBO (small bowel obstruction): Code(s): K56.609 - Unspecified intestinal obstruction, unspecified as to partial versus complete obstruction Status: Acute Assessment and Plan: Abdominal pain and CT imaging showing small obstruction with delayed gastric emptying. White count is normal, lactic normal. NG tube to low intermittent wall suction IV fluids Replace electrolytes as needed Dilaudid p.r.n. for pain, Zofran p.r.n. for nausea Surgery consulted in recs are appreciated 08/20: Small-bowel follow-through without obstruction Tolerated clear liquid diet without nausea vomiting Return of bowel function Advance diet for dinner Anticipate discharge home tomorrow Will set her up with outpatient EGD with Dr. Escudero Subjective Date/time seen: 08/21/23 10:01 Interval history: 08/20: Patient is doing well today. Small-bowel follow-through was normal. Did show some delayed emptying concerns for gastroparesis. This could be related to her obstruction or she may have a component of gastroparesis. Spoke with Dr. Leblanc who is happy to see her as an outpatient for EGD. S she is passing gas and having less abdominal pain. She states she still some abdominal tenderness but is much improved. She is tolerating a clear liquid diet. Surgery has advanced her diet to heart healthy for tonight. If she does okay with food overnight then she can discharge home tomorrow. Review of Systems Review of Systems: All systems reviewed & are unremarkable except as noted in HPI and below Exam Narrative: General: Appears well, appears stated age. HEENT: normocephalic, atraumatic. Mucous membranes moist. EOMI, PERRLA, bilateral sclera anicteric, no conjunctival injection. Neck supple without JVD, lymphadenopathy, or bruit. Respiratory: clear to auscultation bilaterally. No rales/rhonic/wheezes. Cardiovascular: Regular rate and rhythm, normal S1-S2 upon auscultation. No murmurs, rubs, or clicks. PMI is nondisplaced, capillary refill less than 3 second. Abdomen: Soft, round, distended, minimal abdominal pain to right lower quadrant with palpation No rebound, no guarding. No CVA tenderness, no hepatosplenomegaly. Bowel sounds present to all four quadrants. + high pitch and tinkling sounds, resonant to percussion. Extremities: No cyanosis, clubbing, or edema present. Pulses are palpable 2/2. Active ROM to all four extremities. Neuro: Alert and orientated x 4. PERRLA. Cranial nerves 2-12 intact without focal deficit. Skin: Warm, dry, and intact, without rash, erythema, or lesion. Lines: Incisions: Psych: pleasant, cooperative, normal speech, normal affect, no hallucinations, no dysarthria Objective Data Vital Signs Vital Signs: Vital Signs - 24 hr 08/20/23 14:00 08/20/23 21:11 08/21/23 05:16 Temperature 98.0 F 98.1 F 98.6 F Pulse Rate 82 67 68 Respiratory Rate 18 20 20 Blood Pressure 135/85 121/63 136/73 Pulse Oximetry 100 92 95 Oxygen Delivery 08/21/23 09:27 Temperature Pulse Rate Respiratory Rate Blood Pressure Pulse Oximetry Oxygen Delivery Room Air Intake/Output Intake/Output: Intake & Output 08/18/23 08/19/23 08/20/23 08/21/23 23:59 23:59 23:59 23:59 Intake Total 3000 2000 Output Total 400 Balance 2600 2000 Meds/Results Medications: Active Medications Generic Name Dose Route Start Last Admin Trade Name Freq PRN Reason Stop Dose Admin Hydromorphone HCl 0.5 mg 08/20/23 06:51 08/20/23 12:04 Hydromorphone Hcl Inj (*Crx) 1 Mg/Ml Syr IV PUSH 0.5 mg Q3H PRN Administration Pain Rated 7-10 Lactated Ringer's 1,000 mls @ 70 mls/hr 08/20/23 06:10 08/21/23 09:23 Lr - Lactated Ringers Iv IV CONT 125 mls/hr .[id number] TAYLOR Administration Ondansetron HCl 4 mg 08/20/23 09:09 Ondansetron Inj 4 Mg/2 Ml Vial IV PUSH Q4H PRN Nausea And Vomiting Radiology Results: ITS Impressions
[2023-08-21 13:15] VITALS: BP 111/52; PULSE 67; RESP 16; TEMP 36.5; O2SAT 94
--- NOTE | 2023-08-21 15:37 | PM.PNGS ---
Progress Note: A&P Assessment and Plan (1) SBO (small bowel obstruction): Code(s): K56.609 - Unspecified intestinal obstruction, unspecified as to partial versus complete obstruction Status: Acute Assessment and Plan: resolving, ADAT, encourage OOB, home when amilcar diet Subjective Subjective Date/Time Seen: 08/21/23 15:37 Interval history: feels much better, still some intermittent cramping, amilcar clears, + bowel fxn Review of Systems Review of Systems: All systems reviewed & are unremarkable except as noted in HPI and below Exam Const: General: cooperative, comfortable and no acute distress Resp: Auscultation: clear to auscultation bilaterally Cardio: Rate: regular rate Rhythm: regular rhythm GI: Inspection: normal to inspection GI Palp: No abdominal tenderness, Yes Soft to palpation and No Tenderness to palpation present (GI) Objective Data Vital Signs Vital Signs: Vital Signs - 24 hr 08/20/23 21:11 08/21/23 05:16 08/21/23 09:27 Temperature 36.7 C 37.0 C Pulse Rate 67 68 Respiratory Rate 20 20 Blood Pressure 121/63 136/73 Pulse Oximetry 92 95 Oxygen Delivery Room Air 08/21/23 13:15 Temperature 36.5 C Pulse Rate 67 Respiratory Rate 16 Blood Pressure 111/52 L Pulse Oximetry 94 Oxygen Delivery Intake/Output Intake/Output: Intake & Output 08/18/23 08/19/23 08/20/23 08/21/23 23:59 23:59 23:59 23:59 Intake Total 3000 2613.3 Output Total 400 Balance 2600 2613.3 Meds/Results Medications: Active Medications Generic Name Dose Route Start Last Admin Trade Name Freq PRN Reason Stop Dose Admin Hydromorphone HCl 0.5 mg 08/20/23 06:51 08/20/23 12:04 Hydromorphone Hcl Inj (*Crx) 1 Mg/Ml Syr IV PUSH 0.5 mg Q3H PRN Administration Pain Rated 7-10 Lactated Ringer's 1,000 mls @ 70 mls/hr 08/20/23 06:10 08/21/23 10:27 Lr - Lactated Ringers Iv IV CONT 70 mls/hr .[id number] TAYLOR Infusion Ondansetron HCl 4 mg 08/20/23 09:09 Ondansetron Inj 4 Mg/2 Ml Vial IV PUSH Q4H PRN Nausea And Vomiting Radiology Results: ITS Impressions Abdomen/Pelvis CT 08/20/23 05:43 Impression: Small bowel obstruction, as detailed above. Status post prior extensive colectomy. Abdomen X-Ray 08/20/23 06:26 Impression: NG tube in satisfactory position. Suspected small bowel obstruction. Small Bowel X-Ray 08/20/23 16:55 IMPRESSION: 1. Normal small bowel transit time with no dilated loops of bowel to suggest obstruction. 2. Status post subtotal colectomy with pelvic ileocolic anastomosis. 3. Delayed gastric emptying suggesting gastroparesis with small sliding-type hiatal hernia and gastroesophageal reflux. Labs Labs: Laboratory Results - last 24 hr 08/21/23 05:49 WBC 6.9 RBC 4.02 L Hgb 12.4 Hct 39.1 MCV 97.3 D MCH 30.8 MCHC 31.7 L RDW 13.3 Plt Count 188 MPV 11.0 H Sodium 145 Potassium 3.7 Chloride 116 H Carbon Dioxide 23 Anion Gap 6 BUN 12 D Creatinine 0.50 L Estim Creat Clear Calc 70 Estimated GFR > 60 Glucose 117 H Calcium 8.9 Magnesium 2.2
[2023-08-21] MEDS: LACTATED RINGERS 1,000 ML 70 ML IV CONT (21:07)
[2023-08-21 21:29] VITALS: BP 103/51; PULSE 75; RESP 16; TEMP 36.9; O2SAT 96
[2023-08-22 05:26] VITALS: BP 132/52; PULSE 58; RESP 16; TEMP 36.3; O2SAT 97
--- NOTE | 2023-08-22 10:22 | PM.PNGS ---
Progress Note: A&P Assessment and Plan (1) SBO (small bowel obstruction): Code(s): K56.609 - Unspecified intestinal obstruction, unspecified as to partial versus complete obstruction Status: Acute Assessment and Plan: resolved, exam largely benign, +bowel fxn, ok to dc from surgical perspective, will s/o, call c ?, issues Subjective Subjective Date/Time Seen: 08/22/23 10:22 Interval history: feels good, some mild, intermittent cramping, +bowel fxn, amilcar diet Review of Systems Review of Systems: All systems reviewed & are unremarkable except as noted in HPI and below Exam Const: General: cooperative, comfortable and no acute distress Resp: Auscultation: clear to auscultation bilaterally Cardio: Rate: regular rate Rhythm: regular rhythm GI: Inspection: normal to inspection and distended GI Palp: Yes abdominal tenderness, Yes Soft to palpation, Yes Tenderness to palpation present (GI), No Guarding due to palpation present (GI) and No Rigid due to palpation Objective Data Vital Signs Vital Signs: Vital Signs - 24 hr 08/21/23 13:15 08/21/23 21:29 08/21/23 20:00 Temperature 36.5 C 36.9 C Pulse Rate 67 75 Respiratory Rate 16 16 Blood Pressure 111/52 L 103/51 L Pulse Oximetry 94 96 Oxygen Delivery Room Air 08/22/23 05:26 08/22/23 07:30 Temperature 36.3 C L Pulse Rate 58 L Respiratory Rate 16 Blood Pressure 132/52 L Pulse Oximetry 97 Oxygen Delivery Room Air Intake/Output Intake/Output: Intake & Output 08/19/23 08/20/23 08/21/23 08/22/23 23:59 23:59 23:59 23:59 Intake Total 3000 3600.0 518 Output Total 400 1 Balance 2600 3600.0 517 Meds/Results Medications: Active Medications Generic Name Dose Route Start Last Admin Trade Name Freq PRN Reason Stop Dose Admin Hydromorphone HCl 0.5 mg 08/20/23 06:51 08/20/23 12:04 Hydromorphone Hcl Inj (*Crx) 1 Mg/Ml Syr IV PUSH 0.5 mg Q3H PRN Administration Pain Rated 7-10 Lactated Ringer's 1,000 mls @ 70 mls/hr 08/20/23 06:10 08/21/23 21:07 Lr - Lactated Ringers Iv IV CONT 70 mls/hr .[id number] TAYLOR Administration Ondansetron HCl 4 mg 08/20/23 09:09 Ondansetron Inj 4 Mg/2 Ml Vial IV PUSH Q4H PRN Nausea And Vomiting Radiology Results: ITS Impressions Abdomen/Pelvis CT 08/20/23 05:43 Impression: Small bowel obstruction, as detailed above. Status post prior extensive colectomy. Abdomen X-Ray 08/20/23 06:26 Impression: NG tube in satisfactory position. Suspected small bowel obstruction. Small Bowel X-Ray 08/20/23 16:55 IMPRESSION: 1. Normal small bowel transit time with no dilated loops of bowel to suggest obstruction. 2. Status post subtotal colectomy with pelvic ileocolic anastomosis. 3. Delayed gastric emptying suggesting gastroparesis with small sliding-type hiatal hernia and gastroesophageal reflux.
[2023-08-22 14:00] VITALS: BP 116/60; PULSE 84; RESP 18; TEMP 37.1; O2SAT 98
--- NOTE | 2023-08-22 17:27 | PM.IMPN ---
Progress Note: A&P Assessment and Plan (1) SBO (small bowel obstruction): Code(s): K56.609 - Unspecified intestinal obstruction, unspecified as to partial versus complete obstruction Status: Acute Assessment and Plan: Abdominal pain and CT imaging showing small obstruction with delayed gastric emptying. White count is normal, lactic normal. NG tube to low intermittent wall suction IV fluids Replace electrolytes as needed Dilaudid p.r.n. for pain, Zofran p.r.n. for nausea Surgery consulted in recs are appreciated 08/20: Small-bowel follow-through without obstruction Tolerated clear liquid diet without nausea vomiting Return of bowel function Advance diet for dinner Anticipate discharge home tomorrow Will set her up with outpatient EGD with Dr. Escudero 08/21: started reglan monitor abdominal exam. if she starts vomiting or pain is increased then she will need NG replaced. Subjective Date/time seen: 08/22/23 17:27 Interval history: 08/20: Patient is doing well today. Small-bowel follow-through was normal. Did show some delayed emptying concerns for gastroparesis. This could be related to her obstruction or she may have a component of gastroparesis. Spoke with Dr. Leblanc who is happy to see her as an outpatient for EGD. S she is passing gas and having less abdominal pain. She states she still some abdominal tenderness but is much improved. She is tolerating a clear liquid diet. Surgery has advanced her diet to heart healthy for tonight. If she does okay with food overnight then she can discharge home tomorrow. 08/21: The plan was to discharge Mrs Paez today if her pain was resolved. When I saw her today she is grimacing and guarding her RLQ. She is still passing flatus and having bowel movements but she is remains with abdominal pain. KUB is concerning for possible ileus vs SBO. Will hold off on discharge today and will see how she does overnight. Review of Systems Review of Systems: All systems reviewed & are unremarkable except as noted in HPI and below Exam Narrative: General: Appears well, appears stated age. HEENT: normocephalic, atraumatic. Mucous membranes moist. EOMI, PERRLA, bilateral sclera anicteric, no conjunctival injection. Neck supple without JVD, lymphadenopathy, or bruit. Respiratory: clear to auscultation bilaterally. No rales/rhonic/wheezes. Cardiovascular: Regular rate and rhythm, normal S1-S2 upon auscultation. No murmurs, rubs, or clicks. PMI is nondisplaced, capillary refill less than 3 second. Abdomen: Soft, round, distended, minimal abdominal pain to right lower quadrant with palpation No rebound, no guarding. No CVA tenderness, no hepatosplenomegaly. Bowel sounds present to all four quadrants. + high pitch and tinkling sounds, resonant to percussion. Extremities: No cyanosis, clubbing, or edema present. Pulses are palpable 2/2. Active ROM to all four extremities. Neuro: Alert and orientated x 4. PERRLA. Cranial nerves 2-12 intact without focal deficit. Skin: Warm, dry, and intact, without rash, erythema, or lesion. Lines: Incisions: Psych: pleasant, cooperative, normal speech, normal affect, no hallucinations, no dysarthria Objective Data Vital Signs Vital Signs: Vital Signs - 24 hr 08/21/23 21:29 08/21/23 20:00 08/22/23 05:26 Temperature 98.4 F 97.3 F L Pulse Rate 75 58 L Respiratory Rate 16 16 Blood Pressure 103/51 L 132/52 L Pulse Oximetry 96 97 Oxygen Delivery Room Air 08/22/23 07:30 08/22/23 14:00 Temperature 98.8 F Pulse Rate 84 Respiratory Rate 18 Blood Pressure 116/60 Pulse Oximetry 98 Oxygen Delivery Room Air Intake/Output Intake/Output: Intake & Output 08/19/23 08/20/23 08/21/23 08/22/23 23:59 23:59 23:59 23:59 Intake Total 3000 3600.0 2308 Output Total 400 1 Balance 2600 3600.0 2307 Meds/Results Medications: Active Medications Generic Name Dose Route Start Last Admin Trade
[2023-08-22] MEDS: METOCLOPRAMIDE HCL 5 MG TABLET PO (20:56)
[2023-08-22] MEDS: KETOROLAC 15 MG/ML VIAL (*BKC) IV PUSH (20:57)
[2023-08-22 21:15] VITALS: BP 141/63; PULSE 80; RESP 16; TEMP 37.2; O2SAT 99
[2023-08-23] VITALS (9 sets, daily range): BP systolic 106–121; BP diastolic 55–61; PULSE 69–104; RESP 16–20; TEMP 36.7–38.7; O2SAT 92–99
[2023-08-23] MEDS: METOCLOPRAMIDE HCL 5 MG TABLET PO ×2 (06:12→11:24)
[2023-08-23 07:35] LABS: Basophils Percent Auto 0.6 % (0.2-1.2); Eosinophils Percent Auto 0.4 % (0-4.4); Hematocrit 40.2 % (37.0-47.0); Hemoglobin 13.7 g/dL (12.0-15.0); Immature Granulocyte Absolute 0.01 K/mm3 (0.00-0.031); Immature Granulocyte Percent A 0.2 % (0-0.5); Lymphocytes Absolute Auto 0.97 K/mm3 (0.9-3.2); Lymphocytes Percent Auto 18.7 % (18.3-44.2); Mean Corpuscular HGB Conc 34.1 g/dl (32-36); Mean Corpuscular Hemoglobin 30.8 pg (26-34); Mean Corpuscular Volume 90.3 fl (80-100); Mean Platelet Volume 11.2 fl (7.4-10.4); Monocytes Absolute Auto 0.2 K/mm3 (0.1-0.6); Monocytes Percent Auto 3.7 % (2.6-8.5); Neutrophils Percent Auto 76.4 % (45.5-73.1); Platelet Count Result 183 k/mm3 (150-375); Red Blood Count 4.45 M/mm3 (4.2-5.4); Red Cell Distribution Width 12.8 % (11.5-14.5); White Blood Count 5.2 K/mm3 (4.5-10.0)
[2023-08-23 07:52] LABS: Alanine Aminotransferase 29 U/L (6-35); Albumin Level 4.4 g/dL (3.5-5.1); Alkaline Phosphatase 85 U/L (38-126); Anion Gap 8 mmol/L (4-12); Aspartate Amino Transferase 42 U/L (14-36); Bilirubin,Total 0.9 mg/dL (0.2-1.3); Blood Urea Nitrogen 10 mg/dL (7-17); Carbon Dioxide 24 mmol/L (22-30); Chloride 104 mmol/L (98-107); Estimated CRCL calculation 60 ml/min; Estimated Glomerular Filt Rate > 60; Glucose 127 mg/dL (65-110); Potassium 2.8 mmol/L (3.4-5.0); Sodium 136 mmol/L (137-145)
[2023-08-23 09:36] LABS: Magnesium 1.8 mg/dL (1.6-2.3)
[2023-08-23] MEDS: POTASSIUM CHLORIDE 20 MEQ ER TABLET 40 MEQ PO (11:09)
[2023-08-23] MEDS: KCL 20 MEQ/SW 100 ML 100 ML 50 MEQ IVPB (11:20)
[2023-08-23] MEDS: POTASSIUM CHLORIDE 20 MEQ PACKET (FOR LIQUID) 40 MEQ PO (11:26)
--- NOTE | 2023-08-23 13:09 | PC.NURSE ---
Hannah Hernandez APRN asked this nurse to override Benadryl 50mg/1mL vial for administration to Rowena Paez. This nurse overrode the medication from Pyxis at 12:41 and gave to provider. Provider administered Benadryl IVP to patient at 12:45.
[2023-08-23] MEDS: ACETAMINOPHEN 325 MG TABLET 650 MG PO (13:52)
[2023-08-23 15:03] LABS: Anion Gap 9 mmol/L (4-12); Blood Urea Nitrogen 10 mg/dL (7-17); Carbon Dioxide 19 mmol/L (22-30); Chloride 107 mmol/L (98-107); Estimated CRCL calculation 60 ml/min; Estimated Glomerular Filt Rate > 60; Glucose 139 mg/dL (65-110); Potassium 3.7 mmol/L (3.4-5.0); Sodium 135 mmol/L (137-145)
[2023-08-23] MEDS: SODIUM CHLORIDE 0.9% IV 1,000 ML 100 ML IV CONT (15:11)
--- NOTE | 2023-08-23 16:21 | PM.IMPN ---
Progress Note: A&P Assessment and Plan (1) SBO (small bowel obstruction): Code(s): K56.609 - Unspecified intestinal obstruction, unspecified as to partial versus complete obstruction Status: Acute Assessment and Plan: Abdominal pain and CT imaging showing small obstruction with delayed gastric emptying. White count is normal, lactic normal. NG tube to low intermittent wall suction IV fluids Replace electrolytes as needed Dilaudid p.r.n. for pain, Zofran p.r.n. for nausea Surgery consulted in recs are appreciated 08/20: Small-bowel follow-through without obstruction Tolerated clear liquid diet without nausea vomiting Return of bowel function Advance diet for dinner Anticipate discharge home tomorrow Will set her up with outpatient EGD with Dr. Escudero 08/21: started reglan monitor abdominal exam. if she starts vomiting or pain is increased then she will need NG replaced. 08/22: d/c reglan--dystonic reaction continue diet monitor for recurrence of fever---suspect this one was from the dystonia and muscle contractions recheck h/h in the morning Subjective Date/time seen: 08/23/23 16:21 Interval history: 08/20: Patient is doing well today. Small-bowel follow-through was normal. Did show some delayed emptying concerns for gastroparesis. This could be related to her obstruction or she may have a component of gastroparesis. Spoke with Dr. Leblanc who is happy to see her as an outpatient for EGD. S she is passing gas and having less abdominal pain. She states she still some abdominal tenderness but is much improved. She is tolerating a clear liquid diet. Surgery has advanced her diet to heart healthy for tonight. If she does okay with food overnight then she can discharge home tomorrow. 08/21: The plan was to discharge Mrs Paez today if her pain was resolved. When I saw her today she is grimacing and guarding her RLQ. She is still passing flatus and having bowel movements but she is remains with abdominal pain. KUB is concerning for possible ileus vs SBO. Will hold off on discharge today and will see how she does overnight. 08/22: Mrs. Paez is having a dystonic reaction to her reglan. She has received a few doses and after her dose this morning she started to have uncontrollable muscle shaking, like she was having chills from a fever. Stopping Reglan now and administered 25 mg of IVP Benadryl. Her abdominal pain has resolved and she is having bowel movements. Her potassium was low this morning at 2.8. She did end up spiking a fever from the muscle contraction. Will plan to monitor her overnight and make sure the fever was isolated. Recheck labs in the morning to monitor for leukocytosis. Review of Systems Review of Systems: All systems reviewed & are unremarkable except as noted in HPI and below Exam Narrative: General: Appears well, appears stated age. HEENT: normocephalic, atraumatic. Mucous membranes moist. EOMI, PERRLA, bilateral sclera anicteric, no conjunctival injection. Neck supple without JVD, lymphadenopathy, or bruit. Respiratory: clear to auscultation bilaterally. No rales/rhonic/wheezes. Cardiovascular: Regular rate and rhythm, normal S1-S2 upon auscultation. No murmurs, rubs, or clicks. PMI is nondisplaced, capillary refill less than 3 second. Abdomen: Soft, round, distended, minimal abdominal pain to right lower quadrant with palpation No rebound, no guarding. No CVA tenderness, no hepatosplenomegaly. Bowel sounds present to all four quadrants. + high pitch and tinkling sounds, resonant to percussion. Extremities: No cyanosis, clubbing, or edema present. Pulses are palpable 2/2. Active ROM to all four extremities. Neuro: Alert and orientated x 4. PERRLA. Cranial nerves 2-12 intact without focal deficit. Skin: Warm, dry, and intact, without rash, erythema, or lesion. Lines: Incisions: Psych: pleasant, cooperative, normal speech, normal affect, no hallucination
[2023-08-24] VITALS: PULSE 74
[2023-08-24 04:00] VITALS: PULSE 69
[2023-08-24 06:00] VITALS: BP 131/66; PULSE 71; RESP 16; TEMP 36.8; O2SAT 96
[2023-08-24 06:33] LABS: Basophils Percent Auto 0.9 % (0.2-1.2); Eosinophils Percent Auto 0.5 % (0-4.4); Hematocrit 37.8 % (37.0-47.0); Hemoglobin 12.2 g/dL (12.0-15.0); Immature Granulocyte Absolute 0.01 K/mm3 (0.00-0.031); Immature Granulocyte Percent A 0.2 % (0-0.5); Lymphocytes Absolute Auto 1.04 K/mm3 (0.9-3.2); Mean Corpuscular HGB Conc 32.3 g/dl (32-36); Mean Corpuscular Hemoglobin 30.1 pg (26-34); Mean Corpuscular Volume 93.3 fl (80-100); Mean Platelet Volume 11.3 fl (7.4-10.4); Monocytes Absolute Auto 0.3 K/mm3 (0.1-0.6); Monocytes Percent Auto 7.9 % (2.6-8.5); Neutrophils Absolute Auto 2.9 K/mm3 (1.3-6.7); Neutrophils Percent Auto 66.5 % (45.5-73.1); Platelet Count Result 145 k/mm3 (150-375); Red Blood Count 4.05 M/mm3 (4.2-5.4); Red Cell Distribution Width 13.1 % (11.5-14.5); White Blood Count 4.3 K/mm3 (4.5-10.0)
[2023-08-24 06:34] LABS: Alanine Aminotransferase 36 U/L (6-35); Albumin Level 3.8 g/dL (3.5-5.1); Alkaline Phosphatase 81 U/L (38-126); Anion Gap 7 mmol/L (4-12); Aspartate Amino Transferase 47 U/L (14-36); Bilirubin,Total 0.7 mg/dL (0.2-1.3); Blood Urea Nitrogen 9 mg/dL (7-17); Calcium 8.8 mg/dL (8.4-10.2); Carbon Dioxide 19 mmol/L (22-30); Chloride 109 mmol/L (98-107); Estimated CRCL calculation 70 ml/min; Estimated Glomerular Filt Rate > 60; Glucose 118 mg/dL (65-110); Magnesium 1.8 mg/dL (1.6-2.3); Potassium 3.3 mmol/L (3.4-5.0); Sodium 135 mmol/L (137-145)
[2023-08-24] MEDS: POTASSIUM CHLORIDE 20 MEQ ER TABLET 40 MEQ PO (07:20)
[2023-08-24 08:00] VITALS: PULSE 97
--- NOTE | 2023-08-26 16:32 | PM.DS ---
DS: Admitting Diagnosis Discharge Date 08/24/23 Admitting Diagnosis 08/25 DS: Discharge Diagnosis Discharge Diagnosis (1) SBO (small bowel obstruction): Code(s): K56.609 - Unspecified intestinal obstruction, unspecified as to partial versus complete obstruction Status: Acute Assessment and Plan: Abdominal pain and CT imaging showing small obstruction with delayed gastric emptying. White count is normal, lactic normal. NG tube to low intermittent wall suction IV fluids Replace electrolytes as needed Dilaudid p.r.n. for pain, Zofran p.r.n. for nausea Surgery consulted in recs are appreciated 08/20: Small-bowel follow-through without obstruction Tolerated clear liquid diet without nausea vomiting Return of bowel function Advance diet for dinner Anticipate discharge home tomorrow Will set her up with outpatient EGD with Dr. Escudero 08/21: started reglan monitor abdominal exam. if she starts vomiting or pain is increased then she will need NG replaced. 08/22: d/c reglan--dystonic reaction continue diet monitor for recurrence of fever---suspect this one was from the dystonia and muscle contractions recheck h/h in the morning DS: Summary Hospital Course Reason for hospitalization: Small-bowel obstruction Hospital Course: This is a 72-year-old female with past medical history of colon cancer status post sigmoidectomy with colostomy March of 2002 with complete total abdominal colectomy and ileorectal anastomosis and May of 2002, with frequent small bowel obstructions, depression, anxiety, and hyperlipidemia.? She presented 5-14 with complaints of abdominal pain that started around 4:00 p.m. to the right lower quadrant.? She describes the pain as sharp and intermittent in nature.? Her abdomen is distended tender to palpation.? She is not passing flatness and last bowel was yesterday at 0200.? CT of abdomen and pelvis shows a small-bowel obstruction.? NG tube was placed and she was started on IV fluids.? General surgery was consulted and recs are appreciated. Patient's obstruction resolved with NG tube and bowel rest. She was set to discharge in the morning per surgery but she still had persistent abdominal pain. She remained in patient overnight to monitor her resolution of abdominal pain. She also received Zofran for bowel motility and had a dystonic reaction. She then received IV Benadryl and IV fluids. She did have a fever of 101.4. She discharged the following day in good standing. Time Spent with Patient Time attestation: Total time spent providing and/or coordinating discharge services:66 Exam Narrative: General: Appears well, appears stated age. HEENT: normocephalic, atraumatic. Mucous membranes moist. EOMI, PERRLA, bilateral sclera anicteric, no conjunctival injection. Neck supple without JVD, lymphadenopathy, or bruit. Respiratory: clear to auscultation bilaterally. No rales/rhonic/wheezes. Cardiovascular: Regular rate and rhythm, normal S1-S2 upon auscultation. No murmurs, rubs, or clicks. PMI is nondisplaced, capillary refill less than 3 second. Abdomen: Soft, round, distended, minimal abdominal pain to right lower quadrant with palpation No rebound, no guarding. No CVA tenderness, no hepatosplenomegaly. Bowel sounds present to all four quadrants. + high pitch and tinkling sounds, resonant to percussion. Extremities: No cyanosis, clubbing, or edema present. Pulses are palpable 2/2. Active ROM to all four extremities. Neuro: Alert and orientated x 4. PERRLA. Cranial nerves 2-12 intact without focal deficit. Skin: Warm, dry, and intact, without rash, erythema, or lesion. Lines: Incisions: Psych: pleasant, cooperative, normal speech, normal affect, no hallucinations, no dysarthria Discharge Plan Discharge Attending physician on discharge: Jess Pineda Consulting providers: Arielle Squires; Rona Mcarthur; Herb Pfeiffer; Layton Whitehead Dis
== END 2023-08-24 09:21 | disposition home or self-care (01) | DRG 390 ==
LOC: ANHED 06:10 → ANH3MEDSUR 06:44
PROVIDERS: Nurse Practitioner Family; Admitting Provider Internal Medicine; Emergency Provider Emergency Medicine; PCP Family Medicine; Visit Provider Nurse Practitioner Acute Care
DX: K56.609 Unspecified intestinal obstruction, unspecified as to partial versus complete obstruction (principal); T45.0X5A Adverse effect of antiallergic and antiemetic drugs, initial encounter; E78.5 Hyperlipidemia, unspecified; F32.A Depression, unspecified; K21.9 Gastro-esophageal reflux disease without esophagitis; Z93.3 Colostomy status; Z90.49 Acquired absence of other specified parts of digestive tract; Z86.16 Personal history of COVID-19; Z85.038 Personal history of other malignant neoplasm of large intestine; Z85.118 Personal history of other malignant neoplasm of bronchus and lung
CPT/HCPCS: 36415; 74018; 74177; 74250; 80048; 80053; 81003; 83605; 83690; 83735; 85025; 85027; 85610; 85730; 93005; 96361; 96374; 96375; 99285; A9270; J1170; J1885; J2405; J3480; J7030; J7120; Q9967

== ENCOUNTER 2023-12-24 15:09 | Outpatient (CLI) | payer MEDICARE, OTHER, SELFPAY ==
--- NOTE | ~2023-12-24 | MM_ITS ---
EXAMINATION: MM screening alvarez BI w jaswant HISTORY: Screening mammogram, family history of breast cancer in her mother. TECHNIQUE: Craniocaudal and mediolateral oblique 3-D tomosynthesis images were obtained and synthetic 2-D images were generated. CAD analysis was submitted and interpreted. COMPARISON: 07/11/2021, 04/21/2020, 03/30/2019 BREAST PARENCHYMAL COMPOSITION:Not Dense. The breasts are almost entirely fatty FINDINGS: No suspicious mass, calcification, or architectural distortion are identified in either ralph ast to suggest malignancy. There has been no suspicious interval change. IMPRESSION: No mammographic evidence of malignancy. Recommend routine screening mammography in one year. BI-RADS Category 1: Negative Reviewed, dictated and finalized at location .
== END 2023-12-24 15:10 | disposition home or self-care (01) ==
LOC: MICIMG 15:10
PROVIDERS: PCP Family Medicine; Visit Provider Family Medicine
DX: Z12.31 Encounter for screening mammogram for malignant neoplasm of breast (principal)
CPT/HCPCS: 77063; 77067

== ENCOUNTER 2024-06-01 08:44 | Inpatient (IN) | payer MEDICARE, OTHER, SELFPAY ==
[2024-06-01] VITALS (10 sets, daily range): BP systolic 102–142; BP diastolic 58–94; PULSE 72–109; RESP 12–23; TEMP 36.4–36.5; O2SAT 94–100; BMI 25.7
--- NOTE | ~2024-06-01 | XR_ITS ---
Exam: Abdomen 1V HISTORY: ng tube placement COMPARISON: None. TECHNIQUE: Upright images of the lower chest and upper abdomen FINDINGS: Nasogastric tube extends into the left upper quadrant, presumably within the stomach. IMPRESSION: Nasogastric tube in good position and ready for immediate use. Reviewed, dictated and finalized at location A. HASING ASSISTANT
--- NOTE | ~2024-06-01 | CT_ITS ---
EXAMINATION: CT cervical spine wo con DATE: 06/01/2024 09:49 INDICATION: Head injury post fall down stairs TECHNIQUE: Computed tomography (CT) of the cervical spine was performed without intravenous contrast. Automated exposure control and iterative reconstruction technique were employed. The dose-length pro duct was 150.66 mGy-cm. COMPARISON: Radiographs dated 07/10/2023 FINDINGS: 20 degree cervical dextrocurvature. Sagittal alignment is normal. Vertebral body heights are normal. No fracture. Moderate disc height loss at C4-C5, mild to moderate disc height loss at C5-C6 and mild disc height loss at C3-C4 and C6-C7. Posterior disc osteophyte complexes result in mild central canal stenosis at C4-C5 through C6-C7. There is moderate to severe left-sided dominant cervical uncoverteb ral osteoarthritis. Similar there is severe facet osteoarthritis at the majority levels on the left s sabina of the cervical and upper thoracic spine with severe facet osteoarthritis on the right at C7-T1 a nd T2-T3 but otherwise mild to moderate right-sided facet osteoarthritis. There is moderate neural fo raminal stenosis on the left at C3-C4 through C6-C7 and on the right at C4-C5 with otherwise mild john ral from stenosis at many of the remaining bilateral cervical levels.. Mild atelectasis/scarring at t he left upper lobe along the aortic arch. Cervical soft tissues are unremarkable. IMPRESSION: 1. 20 degree cervical dextrocurvature with moderate spondylosis. No acute osseous abnormality. Reviewed, dictated and finalized at location B. CUTTER IMPRESSION: 1. 20 degree cervical dextrocurvature with moderate spondylosis. No acute osseo us abnormality.
--- NOTE | ~2024-06-01 | XR_ITS ---
HISTORY: fall, R hand pain COMPARISON: None TECHNIQUE: 3 views of the right hand were performed. FINDINGS: No acute fracture is identified. Gullwing deformity is identified within the proximal interphalangeal joint spaces of the second, thir d, fourth and fifth digits. Narrowing of the distal interphalangeal joint spaces. Degenerative disease within the first carpometacarpal joint space. The remaining joint spaces are otherwise preserved. The carpal arcs are intact. Mild radiocarpal joint space narrowing with sclerosis of the distal radius is present. Periarticular osteopenia. Otherwise age-appropriate mineralization. No significant focal soft tissue swelling. No radiopaque foreign body is identified. IMPRESSION: Degenerative disease without acute fracture or dislocation within the right hand, as detailed above. Reviewed, dictated and finalized at location A. ACTORY MIXER IMPRESSION: Degenerative disease without acute fracture or dislocation within the right haley d, as detailed above.
--- NOTE | ~2024-06-01 | CT_ITS ---
CLINICAL INDICATION: Nausea vomiting and diarrhea COMPARISON: 08/20/2023. TECHNIQUE: Multiple contiguous axial images of the abdomen and pelvis were performed following the ad ministration of with 100 mL Omnipaque-350 intravenous contrast The dose-length product (DLP) was 353.38 mGy-cm. Automated exposure control and iterative reconstruction technique were employed. FINDINGS/OBSERVATIONS: Visualized lower thorax: The bilateral lung bases are clear. The heart is of normal size, without pericardial effusion. Small hiatal hernia is present. Liver: The liver enhances homogeneously and is not enlarged measuring 16 cm in longitudinal dimension. Gallbladder and biliary system: The gallbladder is only minimally distended, and otherwise unremarkable. Pancreas: The pancreas enhances homogeneously without ductal dilatation. Spleen: 8 mm focus of decreased attenuation within the body of the spleen, unchanged from prior. The remainder of the spleen otherwise enhances homogeneously and is not enlarged measuring 8 cm in lo ngitudinal dimension. Kidneys: The bilateral kidneys enhance symmetrically without hydronephrosis or renal calculi. Adrenal glands: Unremarkable. Gastrointestinal tract: Enteric staple line within the right hemipelvis which is widely patent.. The majority of the proximal colon is absent. Multiple loops of fluid-filled minimally dilated small bowel within the deep pelvis with fecalization , suggesting a partial small bowel obstruction. Mural thickening within the distal colon, beyond the anastomosis in the left hemipelvis likely repres enting peristalsis, as this area was completely patent on prior study performed in August 2023 Appendix: Surgically absent. Vasculature: Unremarkable. Lymph nodes: No pathologically enlarged or morphologically suspicious lymph nodes within the retroperitoneum or at the root of the mesentery. Pelvic structures: The bladder is decompressed, and otherwise unremarkable. The uterus is anteverted and anteflexed, prominent in size for a patient of this age. Body wall and musculoskeletal: No significant degenerative disease within the lower thoracic or lumbosacral spine. IMPRESSION: Likely partial distal small bowel obstruction, as detailed above. Reviewed, dictated and finalized at location A. E CUTTER
--- NOTE | ~2024-06-01 | CT_ITS ---
History: Nausea vomiting and diarrhea, leading to a fall PROCEDURE: CT head without contrast. COMPARISON: None TECHNIQUE: Axial imaging of the head performed from the skull base to the vertex without IV contrast. Sagittal a nd coronal reformations obtained. DLP: 605 mGy-cm FINDINGS: The ventricles are normal in size, shape and position. There is no mass, mass effect or midline shift. There is no abnormal extra-axial fluid collection or intracranial hemorrhage. Mucoperiosteal thickening within the bilateral ethmoid sinuses. Remaining paranasal sinuses are clear . The mastoid air cells are well aerated. No acute displaced fractures within the overlying cranium. Impression: No acute intracranial hemorrhage or suspicious mass effect. Inflammatory sinus disease. Reviewed, dictated and finalized at location A. E MOUNTER Impression: No acute intracranial hemorrhage or suspicious mass effect. Inflammatory sinus disease.
--- NOTE | ~2024-06-01 | XR_ITS ---
CHEST RADIOGRAPH, PA AND LATERAL CLINICAL HISTORY: productive cough . COMPARISON: 08/18/2021 TECHNIQUE: PA and lateral views of the chest. FINDINGS The cardiomediastinal silhouette is unremarkable. The lungs are clear. Visualized osseous structures and soft tissues are unremarkable. IMPRESSION: No focal infiltrate or effusion. Reviewed, dictated and finalized at location A. PROTECTION ENGINEER
--- NOTE | ~2024-06-01 | XR_ITS ---
Exam: Abdomen 1V HISTORY: partial SBO COMPARISON: Reference is made to a CT examination of the abdomen and pelvis performed approximately 2 4 hours earlier TECHNIQUE: Supine images of the abdomen FINDINGS: Liver nasogastric tube projects over the the stomach Redemonstration of multiple loops of prominent small bowel without leslie dilatation although with a m ural thickening, within the bilateral upper quadrants and to the right of midline. Lung bases are unremarkable. Dextroscoliotic curvature of the thoracolumbar spine. Air is now identified within the rectum. IMPRESSION: Improvement in the appearance of small bowel dilatation and mural thickening, now with air in the rec armani Reviewed, dictated and finalized at location A. MAN IMPRESSION: Improvement in the appearance of small bowel dilatation and mural thickening, n ow with air in the rectum
[2024-06-01 09:09] LABS: Basophils Percent Auto 0.4 % (0.2-1.2); Eosinophils Percent Auto 0.1 % (0-4.4); Hematocrit 46.7 % (37.0-47.0); Hemoglobin 15.6 g/dL (12.0-15.0); Immature Granulocyte Absolute 0.02 K/mm3 (0.00-0.031); Immature Granulocyte Percent A 0.2 % (0-0.5); Lymphocytes Absolute Auto 0.49 K/mm3 (0.9-3.2); Mean Corpuscular HGB Conc 33.4 g/dl (32-36); Mean Corpuscular Hemoglobin 31.1 pg (26-34); Mean Corpuscular Volume 93.2 fl (80-100); Mean Platelet Volume 10.3 fl (7.4-10.4); Monocytes Absolute Auto 0.3 K/mm3 (0.1-0.6); Monocytes Percent Auto 3.1 % (2.6-8.5); Neutrophils Absolute Auto 7.3 K/mm3 (1.3-6.7); Neutrophils Percent Auto 90.2 % (45.5-73.1); Platelet Count Result 218 k/mm3 (150-375); Red Blood Count 5.01 M/mm3 (4.2-5.4); White Blood Count 8.1 K/mm3 (4.5-10.0)
[2024-06-01 09:20] LABS: Alanine Aminotransferase 29 U/L (6-35); Albumin Level 4.2 g/dL (3.5-5.1); Alkaline Phosphatase 66 U/L (38-126); Anion Gap 13 mmol/L (4-12); Aspartate Amino Transferase 28 U/L (14-36); Bilirubin,Total 0.8 mg/dL (0.2-1.3); Blood Urea Nitrogen 17 mg/dL (7-17); Calcium 9.2 mg/dL (8.4-10.2); Carbon Dioxide 22 mmol/L (22-30); Chloride 105 mmol/L (98-107); Estimated CRCL calculation 56 ml/min; Estimated Glomerular Filt Rate > 60; Glucose 190 mg/dL (65-110); Lipase 188 U/L (23-300); Potassium 4.3 mmol/L (3.4-5.0); Sodium 140 mmol/L (137-145)
--- NOTE | 2024-06-01 09:21 | ED_ITS ---
HPI - Nausea/Vomiting/Diarrhea General Chief complaint: Nausea/Vomiting/Diarrhea Stated complaint: uri Time Seen by Provider: 06/01/24 08:59 Source: patient Mode of arrival: ambulatory Limitations: no limitations History of Present Illness HPI Narrative: This is a 73-year-old female with PMH of multiple SBO, s/p partial colectomy due to colon cancer who presents to the ED for chief complaint of N/V/D and subsequent fall today. Patient states that she started having loose stools multiple times yesterday. States that she has been nauseous and had a couple episodes of vomiting as well. States that this morning she fell down about 5 steps. States ?I just lost my balance. States she has been trying to stay hydrated but does feel that she is probably dehydrated. She does endorse of left head bruising from the fall as well as pain to the right hand. She also endorses URI symptoms including sinus congestion, rhinorrhea and sinus pressure. Denies fevers, chills, chest pain, shortness of breath, abdominal pain, urinary symptoms. is bedside and denies patient having altered mental status or seizure activity. Denies focal weakness or numbness. Related Data Home Medications ?Medication ?Instructions ?Recorded ?Confirmed ?Last Taken ?Type lysine 500 mg tablet (L-Lysine) 500 mg PO DAILY 02/24/19 06/01/24 05/31/24 History [id number] 8 mg-folic 400 1 tablet PO DAILY 02/24/19 06/01/24 05/31/24 History mcg-K 50 mcg-lutein 300 mcg tablet (Centrum Silver Women) triamcinolone acetonide 55 mcg 1 spray intranasal DAILY 10/22/21 06/01/24 05/31/24 History nasal spray aerosol (Nasacort Allergy) cholecalciferol (vitamin D3) 50 2,000 unit PO DAILY 04/23/22 06/01/24 05/31/24 History mcg (2,000 unit) capsule acetaminophen 650 mg 650 mg PO Q8H PRN pain 02/12/24 06/01/24 05/31/24 History tablet,extended release (Tylenol Arthritis Pain) Allergies Allergy/AdvReac Type Severity Reaction Status Date / Time metoclopramide (From Reglan) AdvReac Intermediate Muscle Verified 06/01/24 14:36 Spasms Review of Systems 2 Review of Systems: All systems as dictated in [facility] Past Medical History Medical History (Updated 06/01/24 @ 14:29 by Will Ferrer DO) Vitamin D deficiency, unspecified level at 36 on 04/17/2022. Level normal at 54 on 02/23/2024. Mixed hyperlipidemia total cholesterol 233, triglycerides 238, HDL 54, LDL 141 with ratio of 4.3 on 10/24/2022. cholesterol 205, triglycerides 213, HDL 52, LDL 120, ratio 3.9 on 04/15/2023. Cholesterol 220, triglycerides 360, HDL 55, LDL 114 with ratio of 4.0 on 02/23/2024. Delayed gastric emptying Abnormal digestive system diagnostic imaging Hyponatremia SBO (small bowel obstruction) At low risk for fall Low magnesium level magnesium 1.9 on 06/30/2023 with low potassium 3.2 on 07/01/2023. Magnesium 2.2 on 02/23/2024. Chronic neck pain X-ray of the C-spine on 07/10/2023 with moderate spo Partial small bowel obstruction Hospital discharge follow-up follow-up of small-bowel obstruction from 09/08/2022. Hypokalemia Potassium was low at 3.9 on 09/11/2022.Potassium normal at 4.3 With magnesium normal at 2.2 on 10/24/2022. Anemia Hemoglobin was low at 11.5 on 09/11/2022.Hemoglobin 13.8 with iron 104 with 34% saturation and ferritin 43 with vitamin B12 485 and folic acid 24 on 10/24/2022. Hemoglobin 13.8 with iron 98 with 32% saturation and ferritin 48 with vitamin B12 545 and folic acid 22.7 on 02/23/2024. GERD (gastroesophageal reflux disease) (~03/2022) Colon polyp, hyperplastic (11/29/21) rectal polyps 11/29/2021 with recheck in 5 years. COVID-19 (04/03/22) tested positive 04/04/2022. Paxlovid 04/05/2022. BMI 26.0-26.9,adult Multiple fractures of ribs of right side (08/15/21) right posterior lateral rib fractures 8, 9, 10 08/15/2021. ER 08/19/2021. Breast cancer screening by mammogram Normal mammogram 07/11/2021. Normal mammogram 12/24/2023. Chronic anxiety Essential (primary) hypertension Contact dermatitis due to plant Secondary malignant neoplasm of unspecified lung Surgical History Surgical History (Updated 06/01/24 @ 13:24 by Kimberlee Ames APRN) History of total colectomy Obstructing sigmoid colon cancer in 2001 and had a sigmoid colon resection with end colostomy and treated with chemotherapy. Colonoscopy a few months later showed a colon polyp and she had a subtotal colectomy in 2002 with ileorectal anastomosis. History of exploratory laparotomy 2013 ex lap with adhesiolysis for SBO Colon cancer metastasized to lung Lung metastasis resected in 2008, no further recurrence Family History Family History Sibling Diabetes mellitus Patient's sister is in good health Mother Patient's mother is , Onset Age: 81 Family history of malignant neoplasm of breast Father Family history of cardiovascular disease, Onset Age: 67 Hypertension Acute myocardial infarction Social History Social History Social History: Surrogate medical decision maker: Rodri Paez, spouse. Code status: Full code. Smoking status: Never smoker Alcohol intake: never Substance use: never Substance use type: does not use Do You Feel Safe in your Home?: Yes Lack of Transportation: No Lack of Food: Never True Current Housing: I Have Housing Concerned About Future Housing: Decline to Answer Difficulty Paying Gas/Electric Bills: Decline to Answer Difficulty Paying for Meds: Decline to Answer Currently Unemployed: Decline to Answer Education: High School Diploma/GED Difficulty w/ Childcare or Family Care: Decline to Answer Living arrangements: with family Spiritual care concerns: No Exam 2 Narrative: GENERAL: Well-appearing, well-nourished, and in no acute distress. HEAD: Normocephalic, atraumatic. Mild bruising to the left forehead. EYES: PERRLA and EOMI. ENT: Mucous membranes dry Nares clear, no rhinorrhea or epistaxis. Oropharynx without tonsillar hypertrophy exudate or other lesions. NECK: Supple. No adenopathy or masses. CHEST: No respiratory distress. Clear to auscultation. No wheezes rales or rhonchi HEART: Regular rate and rhythm. No murmur heard. Normal peripheral pulses. ABDOMEN: Soft, nontender, nondistended, normal active bowel sounds. MSK: Normal range of motion. No edema. SKIN: Warm, dry, no rash. NEURO: Alert and oriented x4. No focal deficits. PSYCH: Normal mood and affect. Course Vital Signs Vital signs: Vital Signs Temperature 97.5 F L 06/01/24 09:08 Pulse Rate 96 06/01/24 09:08 Respiratory Rate 14 06/01/24 09:08 Blood Pressure 138/82 06/01/24 09:08 Pulse Oximetry 98 06/01/24 09:08 Oxygen Delivery Room Air 06/01/24 09:08 Temperature 97.7 F 06/01/24 14:43 Pulse Rate 72 06/01/24 14:43 Respiratory Rate 13 06/01/24 14:43 Blood Pressure 142/94 H 06/01/24 14:43 Pulse Oximetry 96 06/01/24 14:43 Oxygen Delivery Room Air 06/01/24 09:13 MDM - Nausea/Vomiting/Diarrhea MDM Narrative Medical decision making narrative: This is a 73-year-old female who presents to the ED for chief complaint of nausea, vomiting, diarrhea and a fall today. She has long history of SBO is with history of partial colectomy. Vitals are normal. Lab work shows some hemoconcentration of the CBC with a hemoglobin of 15.6. Elevation of white count. CMP unremarkable. Urinalysis again showing evidence of dehydration but no infection. Viral swabs are negative. CT imaging of the abdomen pelvis with IV contrast: IMPRESSION: Likely partial distal small bowel obstruction, as detailed above. Presentation consistent with partial SBO. Discussed the case with surgery, Dr. Ferrer who does recommend starting the patient on NG tube at this point. Discussed case with hospitalist SERGEANT OF OFFICERSKimberlee who accepts admission to medical floor. Patient will be admitted in stable condition Lab Data 06/01/24 09:05 06/01/24 09:05 Labs: Lab Results 06/01/24 06/01/24 06/01/24 Range/Units 09:05 09:25 12:09 WBC 8.1 (4.5-10.0) K/mm3 RBC 5.01 (4.2-5.4) M/mm3 Hgb 15.6 H D (12.0-15.0) g/dL Hct 46.7 (37.0-47.0) % MCV 93.2 (80-100) fl MCH 31.1 (26-34) pg MCHC 33.4 (32-36) g/dl RDW 13.0 (11.5-14.5) % Plt Count 218 D (150-375) k/mm3 MPV 10.3 (7.4-10.4) fl Immature Gran % (Auto) 0.2 (0-0.5) % Neut % (Auto) 90.2 H (45.5-73.1) % Lymph % (Auto) 6.0 L (18.3-44.2) % Evans % (Auto) 3.1 (2.6-8.5) % Eos % (Auto) 0.1 (0-4.4) % Baso % (Auto) 0.4 (0.2-1.2) % Lymph # (Auto) 0.49 L (0.9-3.2) K/mm3 Evans # (Auto) 0.3 (0.1-0.6) K/mm3 Eos # (Auto) 0.0 (0-0.3) K/mm3 Baso # (Auto) 0.0 (0.0-0.1) K/mm3 Abs Immat Gran (auto) 0.02 (0.00-0.031) K/mm3 Absolute Neuts (auto) 7.3 H (1.3-6.7) K/mm3 Absolute Nucleated RBC 0.000 (0.0-0.012) K/mm3 Nucleated RBC % 0.0 (0.0-0.2) % Sodium 140 (137-145) mmol/L Potassium 4.3 (3.4-5.0) mmol/L Chloride 105 (98-107) mmol/L Carbon Dioxide 22 (22-30) mmol/L Anion Gap 13 H (4-12) mmol/L BUN 17 (7-17) mg/dL Creatinine 0.64 L (0.7-1.0) mg/dL Estim Creat Clear Calc 56 ml/min Estimated GFR > 60 (59 - ) Glucose 190 H (65-110) mg/dL Calcium 9.2 (8.4-10.2) mg/dL Magnesium 1.9 (1.6-2.3) mg/dL Total Bilirubin 0.8 (0.2-1.3) mg/dL AST 28 (14-36) U/L ALT 29 (6-35) U/L Alkaline Phosphatase 66 (38-126) U/L Total Protein 7.0 (6.3-8.2) g/dL Albumin 4.2 (3.5-5.1) g/dL Lipase 188 (23-300) U/L Urine Color Yellow (Yellow) Urine Appearance Clear (Clear) Urine pH 5.0 (5.0-9.0) Ur Specific Bruno > 1.045 H (1.001-1.035) Urine Protein Trace (Negative) mg/dL Urine Glucose (UA) Trace H (Negative) mg/dL Urine Ketones Negative (Negative) mg/dL Ur Blood (Man) 1+ H (Negative) Urine Nitrate Negative (Negative) Urine Bilirubin Negative (Negative) Urine Urobilinogen 0.2 (<2.0) mg/dL Leukocyte Esterase Rfl Negative (Negative) DREA/UL Urine RBC 6-10 H (0-2) /hpf Urine WBC 0-5 (0-3) /hpf Ur Squamous Epith Cells None seen (Few) /hpf Urine Bacteria None seen /hpf Urine Casts 0-2 Influenza A (RT-PCR) Negative (Negative) Influenza B (RT-PCR) Negative (Negative) RSV (RT-PCR) Negative (Negative) SARS-CoV-2 RNA (RT-PCR) Negative (Negative) Discharge Plan Discharge Clinical Impression: Partial small bowel obstruction Patient Disposition: Still a Patient Condition: Stable
[2024-06-01 09:34] LABS: Magnesium 1.9 mg/dL (1.6-2.3)
[2024-06-01 10:13] LABS: Influenza A QL RT-PCR Negative (Negative); Influenza B QL RT-PCR Negative (Negative); RSV RNA, RT-PCR Negative (Negative); SARS-CoV-2 RNA PCR Negative (Negative)
[2024-06-01] MEDS: LACTATED RINGERS 1,000 ML 999 ML IV CONT ×2 (10:39→10:40)
[2024-06-01] MEDS: ONDANSETRON INJ 4 MG/2 ML VIAL IV PUSH (10:43)
[2024-06-01 12:22] LABS: Add Urine Microscopic? YES; Appearance Urine Clear (Clear); Bacteria Urine None Seen /hpf; Bilirubin Urine Negative (Negative); Blood Urine 1+ (Negative); Color Urine Yellow (Yellow); Glucose Urine UA Trace mg/dL (Negative); Ketones Urine Negative (Negative); Leukocyte Esterase Ur Negative LEU/UL (Negative); Nitrate Urine Negative (Negative); Non Pathogenic Casts 0-2; Protein Urine Trace mg/dL (Negative); Specific Grav Ur > 1.045 (1.001-1.035); Squamous Epithelial Cell Urine None Seen /hpf (Few); Urobilinogen Urine 0.2 mg/dL (<2.0); WBC Urine 0-5 /hpf (0-3)
--- NOTE | 2024-06-01 13:10 | P.HP_ITS ---
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 Diarrhea: She reports initial onset of diarrhea yesterday. She estimates she has: 6 times in the last 24 hours. Diarrhea is accompanied by nausea and vomiting. She has a history of sigmoid colon cancer s/p subtotal colectomy. She has previously required admission for SBO is, most recent in August and June of 2023. She was able to be treated conservatively. Patient did require surgical management 2013 for an SBO. LBM was this morning, loose. Last normal BM was yesterday morning. Denies abdominal pain. Fall: Patient reports a fall down approximately 5 steps that occurred today, 06/01. She reports she was going down the steps when she lost her balance. She fell onto her left side. She endorses a head strike without loss of consciousness. Post fall she is reporting bruising to the left side of her head and pain in her right hand. She is not on anticoagulation. Congestion: The patient is also reporting cold-like symptoms including congestion, rhinorrhea, sinus pressure. Reports that her symptoms started 3-4 days ago. She is concerned she has sinusitis. She denies dental pain and purulent nasal congestion. Reports mild associated headache, has since resolved. Initial VS at presentation: 97.5? F, HR 96, RR 14, 138/82, and 98% on RA. ED workup showed: No leukocytosis, hemoglobin 15.6 (previously 13.8 on 02/23/2024), no significant electrolyte derangements, creatinine 0.64 and GFR >60, glucose 190, UA showed a high specific gravity, trace glucose, 1+ blood, 6- 10 RBC otherwise unremarkable. Viral PCR negative. Head CT showed no acute intracranial hemorrhage or suspicious mass effect, inflammatory sinus disease. CT of the abdomen/pelvis showed a likely partial distal small-bowel obstruction. C-spine CT showed 20? cervical dextrocurvature with moderate spondylosis, no acute osseous abnormality. CXR showed no focal infiltrate or effusion. Hand XR, right, showed degenerative disease without acute fracture or dislocation within the right hand. Review of Systems Review of Systems: All systems reviewed & are unremarkable except as noted in HPI and below [facility] Past Medical History Medical History (Updated 06/01/24 @ 14:29 by Will Ferrer DO) Vitamin D deficiency, unspecified level at 36 on 04/17/2022. Level normal at 54 on 02/23/2024. Mixed hyperlipidemia total cholesterol 233, triglycerides 238, HDL 54, LDL 141 with ratio of 4.3 on 10/24/2022. cholesterol 205, triglycerides 213, HDL 52, LDL 120, ratio 3.9 on 04/15/2023. Cholesterol 220, triglycerides 360, HDL 55, LDL 114 with ratio of 4.0 on 02/23/2024. Delayed gastric emptying Abnormal digestive system diagnostic imaging Hyponatremia SBO (small bowel obstruction) At low risk for fall Low magnesium level magnesium 1.9 on 06/30/2023 with low potassium 3.2 on 07/01/2023. Magnesium 2.2 on 02/23/2024. Chronic neck pain X-ray of the C-spine on 07/10/2023 with moderate spo Partial small bowel obstruction Hospital discharge follow-up follow-up of small-bowel obstruction from 09/08/2022. Hypokalemia Potassium was low at 3.9 on 09/11/2022.Potassium normal at 4.3 With magnesium normal at 2.2 on 10/24/2022. Anemia Hemoglobin was low at 11.5 on 09/11/2022.Hemoglobin 13.8 with iron 104 with 34% saturation and ferritin 43 with vitamin B12 485 and folic acid 24 on 10/24/2022. Hemoglobin 13.8 with iron 98 with 32% saturation and ferritin 48 with vitamin B12 545 and folic acid 22.7 on 02/23/2024. GERD (gastroesophageal reflux disease) (~03/2022) Colon polyp, hyperplastic (11/29/21) rectal polyps 11/29/2021 with recheck in 5 years. COVID-19 (04/03/22) tested positive 04/04/2022. Paxlovid 04/05/2022. BMI 26.0-26.9,adult Multiple fractures of ribs of right side (08/15/21) right posterior lateral rib fractures 8, 9, 10 08/15/2021. ER 08/19/2021. Breast cancer screening by mammogram Normal mammogram 07/11/2021. Normal mammogram 12/24/2023. Chronic anxiety Essential (primary) hypertension Contact dermatitis due to plant Secondary malignant neoplasm of unspecified lung Surgical History Surgical History (Updated 06/01/24 @ 13:24 by Kimberlee Ames APRN) History of total colectomy Obstructing sigmoid colon cancer in 2001 and had a sigmoid colon resection with end colostomy and treated with chemotherapy. Colonoscopy a few months later showed a colon polyp and she had a subtotal colectomy in 2002 with ileorectal anastomosis. History of exploratory laparotomy 2014 ex lap with adhesiolysis for SBO Colon cancer metastasized to lung Lung metastasis resected in 2008, no further recurrence Family History Family History Sibling Diabetes mellitus Patient's sister is in good health Mother Patient's mother is , Onset Age: 81 Family history of malignant neoplasm of breast Father Family history of cardiovascular disease, Onset Age: 67 Hypertension Acute myocardial infarction Social History Social History Social History: Surrogate medical decision maker: Rodri Paez, spouse. Code status: Full code. Smoking status: Never smoker Alcohol intake: never Substance use: never Substance use type: does not use Do You Feel Safe in your Home?: Yes Lack of Transportation: No Lack of Food: Never True Current Housing: I Have Housing Concerned About Future Housing: Decline to Answer Difficulty Paying Gas/Electric Bills: Decline to Answer Difficulty Paying for Meds: Decline to Answer Currently Unemployed: Decline to Answer Education: High School Diploma/GED Difficulty w/ Childcare or Family Care: Decline to Answer Living arrangements: with family Spiritual care concerns: No Meds Home Medications and Allergies Home Medications ?Medication ?Instructions ?Recorded ?Confirmed ?Type lysine 500 mg tablet (L-Lysine) 500 mg PO DAILY 02/24/19 06/01/24 History [id number] 8 mg-folic 400 1 tablet PO DAILY 02/24/19 06/01/24 History mcg-K 50 mcg-lutein 300 mcg tablet (Centrum Silver Women) triamcinolone acetonide 55 mcg 1 spray intranasal DAILY 10/22/21 06/01/24 History nasal spray aerosol (Nasacort Allergy) cholecalciferol (vitamin D3) 50 2,000 unit PO DAILY 04/23/22 06/01/24 History mcg (2,000 unit) capsule meloxicam 15 mg tablet 15 mg PO DAILY PRN pain #30 tabs 07/10/23 06/01/24 Rx acetaminophen 650 mg 650 mg PO Q8H PRN pain 02/12/24 06/01/24 History tablet,extended release (Tylenol Arthritis Pain) cyclobenzaprine 5 mg tablet 5 mg PO BID PRN muscle spasm #60 02/12/24 06/01/24 Rx tabs bupropion HCl 150 mg 24 hr tablet, 150 mg PO QAM #90 tabs 04/05/24 06/01/24 Rx extended release (Wellbutrin XL) escitalopram oxalate 10 mg tablet 10 mg PO DAILY #90 tabs 04/05/24 06/01/24 Rx (Lexapro) pravastatin 40 mg tablet 40 mg PO QHS #90 tabs 04/05/24 06/01/24 Rx quetiapine 25 mg tablet (Seroquel) 25 mg PO QHS #90 tabs 05/21/24 06/01/24 Rx Allergies Allergy/AdvReac Type Severity Reaction Status Date / Time metoclopramide (From Reglan) AdvReac Intermediate Muscle Verified 06/01/24 14:36 Spasms Vital Signs Vital Signs - 24 hr 06/01/24 09:08 06/01/24 09:13 06/01/24 10:34 Temperature 97.5 F L Pulse Rate 96 89 Respiratory Rate 14 Blood Pressure 138/82 132/73 Pulse Oximetry 98 96 Oxygen Delivery Room Air Room Air 06/01/24 10:35 06/01/24 10:37 06/01/24 10:43 Temperature Pulse Rate 99 109 H 84 Respiratory Rate 23 H Blood Pressure 109/64 102/77 118/72 Pulse Oximetry 96 Oxygen Delivery Exam Const: General: comfortable and no acute distress Other: , female, nontoxic appearance HENMT: Face/Nose/Sinus: Normal nares present Mouth: Yes moist mucous membranes Eyes: General: appearance normal, both eyes and all related structures Sclera: sclerae normal Pupils: Equal, round and reactive pupils present EOM: EOMs intact bilaterally Resp: Effort & Inspection: normal respiratory effort Auscultation: clear to auscultation bilaterally Cardio: Rate: regular rate Rhythm: regular rhythm Other: S1-S2 present without murmur, rub, ectopy GI: Other: NG in place. Abdomen soft, nondistended, nontender. Normoactive bowel sounds in all quadrants. Skin: General skin exam: normal color and no rashes or lesions noted Wounds: no wounds Neuro: Speech: normal speech Motor exam (neuro): 5/5 motor strength present throughout Sensory Exam: normal sensation Other: A&O x4 Extrem: General: normal to inspection Psych: Mental Status: mental status grossly normal Affect: normal affect Other: Good insight and judgment, pleasant H&P: Results Labs Labs: Short CBC 06/01/24 Range/Units 09:05 WBC 8.1 (4.5-10.0) K/mm3 Hgb 15.6 H D (12.0-15.0) g/dL Hct 46.7 (37.0-47.0) % Plt Count 218 D (150-375) k/mm3 BMP 06/01/24 09:05 Sodium 140 Potassium 4.3 Chloride 105 Carbon Dioxide 22 BUN 17 Creatinine 0.64 L Glucose 190 H Calcium 9.2 Liver Function 06/01/24 Range/Units 09:05 Total Bilirubin 0.8 (0.2-1.3) mg/dL AST 28 (14-36) U/L ALT 29 (6-35) U/L Alkaline Phosphatase 66 (38-126) U/L Albumin 4.2 (3.5-5.1) g/dL Urine 06/01/24 Range/Units 12:09 Urine Color Yellow (Yellow) Urine Appearance Clear (Clear) Urine pH 5.0 (5.0-9.0) Ur Specific [place] > 1.045 H (1.001-1.035) Urine Protein Trace (Negative) mg/dL Urine Glucose (UA) Trace H (Negative) mg/dL Assessment and Plan Assessment and plan (1) Partial small bowel obstruction: Code(s): K56.600 - Partial intestinal obstruction, unspecified as to cause Status: Acute Assessment and Plan: - CT abdomen/pelvis: Multiple loops of fluid-filled minimally dilated small bowel within the deep pelvis with fecalization, suggesting a partial small bowel obstruction. - general surgery consulted, awaiting formal recs. ED spoke with on-call surgeon, recommended bowel rest and NG placement. - NPO, monitor I&Os - IV fluids: 2L bolus -> 125 mL/hour - antiemetics p.r.n. - monitor electrolytes (2) Acute non-recurrent maxillary sinusitis: Code(s): J01.00 - Acute maxillary sinusitis, unspecified Status: Acute Assessment and Plan: - head CT: No acute intracranial hemorrhage or suspicious mass effect. Inflammatory sinus disease. - symptom onset 3-4 days ago. Will proceed with conservative treatment. - start Mucinex when no longer NPO/on bowel rest (3) Anemia: Qualifiers: Anemia type: unspecified type Qualified Code(s): D64.9 - Anemia, unspecified Code(s): D64.9 - Anemia, unspecified Status: Acute Assessment and Plan: - hemoglobin 15.6 - previous range, 2023: 12.2-15.2, typically runs between 12-13 - suspect patient is mildly dehydrated secondary to partial SBO/nausea vomiting, rehydrate (4) Fall (on) (from) other stairs and steps, initial encounter: Code(s): W10.8XXA - Fall (on) (from) other stairs and steps, initial encounter Status: Acute Assessment and Plan: - C-spine CT: 20 degree cervical dextrocurvature with moderate spondylosis. No acute osseous abnormality. - hand XR, right: Degenerative disease without acute fracture or dislocation within the right hand, as detailed above. - CXR :No focal infiltrate or effusion. - fall precautions - analgesics p.r.n. Plan Home p.o. medications held, resume when no longer NPO. Diet: NPO GI Prophylaxis: Pantoprazole DVT Prophylaxis: SCDs Lines: Peripheral Code Status: Full code Quality VTE Prophylaxis VTE prophylaxis: mechanical ordered Hospitalist [facility] Advance Care Plan I have confirmed that the patient's Advanced Care Plan is present, code status is documented, or surrogate decision maker is listed in patient medical record.: Yes Medication Reconciliation I have utilized all available resources to obtain, update and review the patients current medications (includes all prescriptions, OTC, herbals, cannabis, and nutritional supplements).: Yes
[2024-06-01] MEDS: SODIUM CHLORIDE 0.9% IV 1,000 ML 125 ML IV CONT ×2 (13:17→21:53)
--- NOTE | 2024-06-01 14:10 | PC.NURSE ---
This patient, Rowena Paez, was admitted to 3 Med Surg Room 306-02. Patient/family oriented to hospital policies and general routines including ID bracelet, bed and alarms, visiting hours, pain management, procedures, bathroom and other care routines, personal items, smoking policy, room service/diet, and visiting hours. Information on how to activate the Rapid Response Team has been discussed. Patient/Family are encouraged to report perceived risks to care and to ask questions if they do not understand what they are told or what they should do.
--- NOTE | 2024-06-01 14:22 | P.CONGS_ITS ---
Assessment and Plan Assessment and plan (1) Small bowel obstruction: Code(s): K56.609 - Unspecified intestinal obstruction, unspecified as to partial versus complete obstruction Status: Acute Assessment and Plan: * I have reviewed the CT and discussed the findings with the patient. Her symptoms seem more consistent with gastroenteritis or a partial obstruction, but less likely to be obstruction given the fact she did have a bowel movement this morning. Given the CT findings, it is reasonable to have NG tube placed and bowel rest. Will get an obstructive series in the morning. Could consider small-bowel follow-through if no significant improvement with obstruction. Will continue to follow patient. (2) History of colon cancer: Code(s): Z85.038 - Personal history of other malignant neoplasm of large intestine Status: Acute (3) Nausea vomiting and diarrhea: Code(s): R11.2 - Nausea with vomiting, unspecified; R19.7 - Diarrhea, unspecified Status: Acute History of Present Illness Consult details Consult date: 06/01/24 Reason for consult: other (SBO) Requesting physician: Abelardo Heard PA-C Narrative: This is a 73-year-old woman who I am asked to see for a recurrent small-bowel obstruction. She presented to the emergency department today with complaints of nausea, vomiting, and diarrhea that started last night. She states that no one else around her has been ill with similar symptoms. She was previously complaining of upper respiratory infection symptoms but was not on any antibiotics for this. She denies having any abdominal pain and did have a bowel movement this morning. She denies feeling bloated. The patient did fall down several steps this morning and she feels that this was secondary to being very weak and dehydrated from all of the nausea, vomiting, and diarrhea. She states that this does not feel like her prior episodes of bowel obstructions. She has had multiple bowel obstructions in the past. She has a history of a sigmoid colectomy followed by an extended right hemicolectomy and only has a small amount of colon remaining. She states she usually has formed bowel movements and does not deal with diarrhea. Her last bowel obstruction was about 9 months ago and resolved without operative intervention. Review of Systems 2 Review of Systems: All systems reviewed & are unremarkable except as noted in HPI and below Constitutional: Constitutional: Reports chills and Denies fever(s) Eyes: Eyes: Denies change in vision ENT: Denies hearing loss, Denies neck pain and Denies sore throat Cardiovascular: Cardiovascular: Denies chest pain and Denies dyspnea Respiratory: Respiratory: Denies cough, Denies dyspnea and Denies wheezing Gastrointestinal: Gastrointestinal: Reports as per HPI Genitourinary: Genitourinary: Denies hematuria and Denies dysuria Musculoskeletal: Musculoskeletal: Denies arthralgias, Denies joint swelling and Denies neck pain Allergic/Immunologic: Allergic/Immunologic: Denies wheezing FOR[facility]LY [facility], [facility] Past Medical History Medical History (Updated 06/01/24 @ 14:29 by Will Ferrer DO) Vitamin D deficiency, unspecified level at 36 on 04/17/2022. Level normal at 54 on 02/23/2024. Mixed hyperlipidemia total cholesterol 233, triglycerides 238, HDL 54, LDL 141 with ratio of 4.3 on 10/24/2022. cholesterol 205, triglycerides 213, HDL 52, LDL 120, ratio 3.9 on 04/15/2023. Cholesterol 220, triglycerides 360, HDL 55, LDL 114 with ratio of 4.0 on 02/23/2024. Delayed gastric emptying Abnormal digestive system diagnostic imaging Hyponatremia SBO (small bowel obstruction) At low risk for fall Low magnesium level magnesium 1.9 on 06/30/2023 with low potassium 3.2 on 07/01/2023. Magnesium 2.2 on 02/23/2024. Chronic neck pain X-ray of the C-spine on 07/10/2023 with moderate spo Partial small bowel obstruction Hospital discharge follow-up follow-up of small-bowel obstruction from 09/08/2022. Hypokalemia Potassium was low at 3.9 on 09/11/2022.Potassium normal at 4.3 With magnesium normal at 2.2 on 10/24/2022. Anemia Hemoglobin was low at 11.5 on 09/11/2022.Hemoglobin 13.8 with iron 104 with 34% saturation and ferritin 43 with vitamin B12 485 and folic acid 24 on 10/24/2022. Hemoglobin 13.8 with iron 98 with 32% saturation and ferritin 48 with vitamin B12 545 and folic acid 22.7 on 02/23/2024. GERD (gastroesophageal reflux disease) (~03/2022) Colon polyp, hyperplastic (11/29/21) rectal polyps 11/29/2021 with recheck in 5 years. COVID-19 (04/03/22) tested positive 04/04/2022. Paxlovid 04/05/2022. BMI 26.0-26.9,adult Multiple fractures of ribs of right side (08/15/21) right posterior lateral rib fractures 8, 9, 10 08/15/2021. ER 08/19/2021. Breast cancer screening by mammogram Normal mammogram 07/11/2021. Normal mammogram 12/24/2023. Chronic anxiety Essential (primary) hypertension Contact dermatitis due to plant Secondary malignant neoplasm of unspecified lung Surgical History Surgical History (Updated 06/01/24 @ 13:24 by Kimberlee Ames APRN) History of total colectomy Obstructing sigmoid colon cancer in 2001 and had a sigmoid colon resection with end colostomy and treated with chemotherapy. Colonoscopy a few months later showed a colon polyp and she had a subtotal colectomy in 2002 with ileorectal anastomosis. History of exploratory laparotomy 2013 ex lap with adhesiolysis for SBO Colon cancer metastasized to lung Lung metastasis resected in 2008, no further recurrence Family History Family History Sibling Diabetes mellitus Patient's sister is in good health Mother Patient's mother is , Onset Age: 81 Family history of malignant neoplasm of breast Father Family history of cardiovascular disease, Onset Age: 67 Hypertension Acute myocardial infarction Social History Social History Social History: Surrogate medical decision maker: Rodri Paez, spouse. Code status: Full code. Smoking status: Never smoker Alcohol intake: never Substance use: never Substance use type: does not use Do You Feel Safe in your Home?: Yes Lack of Transportation: No Lack of Food: Never True Current Housing: I Have Housing Concerned About Future Housing: Decline to Answer Difficulty Paying Gas/Electric Bills: Decline to Answer Difficulty Paying for Meds: Decline to Answer Currently Unemployed: Decline to Answer Education: High School Diploma/GED Difficulty w/ Childcare or Family Care: Decline to Answer Living arrangements: with family Spiritual care concerns: No Meds Home Medications and Allergies Home Medications ?Medication ?Instructions ?Recorded ?Confirmed ?Type lysine 500 mg tablet (L-Lysine) 500 mg PO DAILY 02/24/19 06/01/24 History feazubiy-njxs-gohe 8 mg-folic 400 1 tablet PO DAILY 02/24/19 06/01/24 History mcg-K 50 mcg-lutein 300 mcg tablet (Centrum Silver Women) triamcinolone acetonide 55 mcg 1 spray intranasal DAILY 10/22/21 06/01/24 History nasal spray aerosol (Nasacort Allergy) cholecalciferol (vitamin D3) 50 2,000 unit PO DAILY 04/23/22 06/01/24 History mcg (2,000 unit) capsule magnesium oxide 250 mg PO BID 07/10/23 06/01/24 History meloxicam 15 mg tablet 15 mg PO DAILY PRN pain #30 tabs 07/10/23 06/01/24 Rx acetaminophen 650 mg 650 mg PO Q8H PRN pain 02/12/24 06/01/24 History tablet,extended release (Tylenol Arthritis Pain) cyclobenzaprine 5 mg tablet 5 mg PO BID PRN muscle spasm #60 02/12/24 06/01/24 Rx tabs bupropion HCl 150 mg 24 hr tablet, 150 mg PO QAM #90 tabs 04/05/24 06/01/24 Rx extended release (Wellbutrin XL) escitalopram oxalate 10 mg tablet 10 mg PO DAILY #90 tabs 04/05/24 06/01/24 Rx (Lexapro) pravastatin 40 mg tablet 40 mg PO QHS #90 tabs 04/05/24 06/01/24 Rx quetiapine 25 mg tablet (Seroquel) 25 mg PO QHS #90 tabs 05/21/24 06/01/24 Rx Allergies Allergy/AdvReac Type Severity Reaction Status Date / Time metoclopramide (From Reglan) AdvReac Intermediate Muscle Verified 06/01/24 09:08 Spasms Vital Signs Vital Signs - 24 hr 06/01/24 09:08 06/01/24 09:13 06/01/24 10:34 Temperature 97.5 F L Pulse Rate 96 89 Respiratory Rate 14 Blood Pressure 138/82 132/73 Pulse Oximetry 98 96 Oxygen Delivery Room Air Room Air 06/01/24 10:35 06/01/24 10:37 06/01/24 10:43 Temperature Pulse Rate 99 109 H 84 Respiratory Rate 23 H Blood Pressure 109/64 102/77 118/72 Pulse Oximetry 96 Oxygen Delivery 06/01/24 13:13 06/01/24 13:42 Temperature Pulse Rate 88 85 Respiratory Rate 19 12 Blood Pressure 106/58 L 120/85 Pulse Oximetry 100 98 Oxygen Delivery Exam 2 Const: General: alert; No acute distress Orientation/consciousness: patient oriented x3 Limitations: no limitations HENMT: Head: normocephalic and atraumatic Ears: hearing grossly normal bilaterally Face/Nose/Sinus: Normal external nose present and Normal nares present Mouth: Yes Normal oral and palatal mucosa present and Yes moist mucous membranes Eyes: General: appearance normal, both eyes and all related structures C onjunctivae: conjunctivae normal Sclera: sclerae normal Pupils: Equal, round and reactive pupils present EOM: EOMs intact bilaterally Neck: Neck: normal visual inspection, full ROM, no lymphadenopathy, supple and no JVD Lymphatic: no lymphadenopathy noted Chest: Chest palpation & inspection: normal inspection of the chest Resp: Effort & Inspection: normal respiratory effort and able to speak in complete sentences Auscultation: clear to auscultation bilaterally P ercussion: percussion normal Cardio: Jugular venous distension: no JVD Rate: regular rate Rhythm: r egular rhythm Heart sounds: S1 normal heart sound present and S2 normal heart sound present Peripheral pulses: Peripheral pulses 2+ throughout GI: Inspection: normal to inspection and non-distended GI Palp: Yes Soft to palpation, No Tenderness to palpation present (GI), No Guarding due to palpation present (GI) and No Rebound tenderness present Percussion: Yes normal to percussion Auscultation: normal bowel sounds : General: Yes no CVA tenderness Back/Spine/Pelvis: Back: no CVA tenderness Skin: General skin exam: normal color and dry skin Neuro: General: patient oriented x3, gait normal, moves all extremities, no focal motor deficits and CN's II-XI intact bilaterally Cranial nerves: Yes Equal, round and reactive pupils present Speech: normal speech Extrem: General: normal to inspection and capillary refill normal Results Labs 06/01/24 09:05 06/01/24 09:05 Labs: Abnormal lab results 06/01/24 06/01/24 Range/Units 09:05 12:09 Hgb 15.6 H D (12.0-15.0) g/dL Neut % (Auto) 90.2 H (45.5-73.1) % Lymph % (Auto) 6.0 L (18.3-44.2) % Lymph # (Auto) 0.49 L (0.9-3.2) K/mm3 Absolute Neuts (auto) 7.3 H (1.3-6.7) K/mm3 Anion Gap 13 H (4-12) mmol/L Creatinine 0.64 L (0.7-1.0) mg/dL Glucose 190 H (65-110) mg/dL Ur Specific Noonan > 1.045 H (1.001-1.035) Urine Glucose (UA) Trace H (Negative) mg/dL Ur Blood (Man) 1+ H (Negative) Urine RBC 6-10 H (0-2) /hpf Diabetes panel 06/01/24 Range/Units 09:05 Sodium 140 (137-145) mmol/L Potassium 4.3 (3.4-5.0) mmol/L Chloride 105 (98-107) mmol/L Carbon Dioxide 22 (22-30) mmol/L BUN 17 (7-17) mg/dL Creatinine 0.64 L (0.7-1.0) mg/dL Glucose 190 H (65-110) mg/dL Calcium 9.2 (8.4-10.2) mg/dL AST 28 (14-36) U/L ALT 29 (6-35) U/L Alkaline Phosphatase 66 (38-126) U/L Total Protein 7.0 (6.3-8.2) g/dL Albumin 4.2 (3.5-5.1) g/dL Calcium panel 06/01/24 Range/Units 09:05 Calcium 9.2 (8.4-10.2) mg/dL Albumin 4.2 (3.5-5.1) g/dL Pituitary panel 06/01/24 Range/Units 09:05 Sodium 140 (137-145) mmol/L Potassium 4.3 (3.4-5.0) mmol/L Chloride 105 (98-107) mmol/L Carbon Dioxide 22 (22-30) mmol/L BUN 17 (7-17) mg/dL Creatinine 0.64 L (0.7-1.0) mg/dL Glucose 190 H (65-110) mg/dL Calcium 9.2 (8.4-10.2) mg/dL Adrenal panel 06/01/24 Range/Units 09:05 Sodium 140 (137-145) mmol/L Potassium 4.3 (3.4-5.0) mmol/L Chloride 105 (98-107) mmol/L Carbon Dioxide 22 (22-30) mmol/L BUN 17 (7-17) mg/dL Creatinine 0.64 L (0.7-1.0) mg/dL Glucose 190 H (65-110) mg/dL Calcium 9.2 (8.4-10.2) mg/dL Total Bilirubin 0.8 (0.2-1.3) mg/dL AST 28 (14-36) U/L ALT 29 (6-35) U/L Alkaline Phosphatase 66 (38-126) U/L Total Protein 7.0 (6.3-8.2) g/dL Albumin 4.2 (3.5-5.1) g/dL All other labs normal. Imaging Additional studies: ITS Impressions Head CT 06/01/24 09:49 Impression: No acute intracranial hemorrhage or suspicious mass effect. Inflammatory sinus disease. Abdomen/Pelvis CT 06/01/24 09:55 IMPRESSION: Likely partial distal small bowel obstruction, as detailed above. Cervical Spine CT 06/01/24 10:04 IMPRESSION: 1. 20 degree cervical dextrocurvature with moderate spondylosis. No acute osseous abnormality. Chest X-Ray 06/01/24 10:17 IMPRESSION: No focal infiltrate or effusion. Hand X-Ray 06/01/24 10:18 IMPRESSION: Degenerative disease without acute fracture or dislocation within the right hand, as detailed above. Abdomen X-Ray 06/01/24 13:36 IMPRESSION: Nasogastric tube in good position and ready for immediate use.
[2024-06-01] MEDS: ACETAMINOPHEN ELIXIR 325 MG/10.15 ML UDC 650 MG PO (21:54)
[2024-06-02] MEDS: SODIUM CHLORIDE 0.9% IV 1,000 ML 125 ML IV CONT (05:13)
[2024-06-02 06:00] VITALS: BP 144/70; PULSE 66; RESP 18; TEMP 36.2; O2SAT 98
[2024-06-02 06:46] LABS: Basophils Percent Auto 0.5 % (0.2-1.2); Eosinophils Absolute Auto 0.1 K/mm3 (0-0.3); Eosinophils Percent Auto 0.8 % (0-4.4); Hematocrit 38.8 % (37.0-47.0); Immature Granulocyte Absolute 0.02 K/mm3 (0.00-0.031); Immature Granulocyte Percent A 0.3 % (0-0.5); Lymphocytes Absolute Auto 2.04 K/mm3 (0.9-3.2); Lymphocytes Percent Auto 32.3 % (18.3-44.2); Mean Corpuscular HGB Conc 33.5 g/dl (32-36); Mean Corpuscular Hemoglobin 31.7 pg (26-34); Mean Corpuscular Volume 94.6 fl (80-100); Mean Platelet Volume 10.3 fl (7.4-10.4); Monocytes Absolute Auto 0.5 K/mm3 (0.1-0.6); Monocytes Percent Auto 8.1 % (2.6-8.5); Neutrophils Absolute Auto 3.7 K/mm3 (1.3-6.7); Platelet Count Result 182 k/mm3 (150-375); White Blood Count 6.3 K/mm3 (4.5-10.0)
[2024-06-02 07:02] LABS: Alanine Aminotransferase 21 U/L (6-35); Albumin Level 3.3 g/dL (3.5-5.1); Alkaline Phosphatase 54 U/L (38-126); Anion Gap 5 mmol/L (4-12); Aspartate Amino Transferase 26 U/L (14-36); Bilirubin,Total 0.5 mg/dL (0.2-1.3); Blood Urea Nitrogen 7 mg/dL (7-17); Calcium 8.3 mg/dL (8.4-10.2); Carbon Dioxide 30 mmol/L (22-30); Chloride 105 mmol/L (98-107); Estimated CRCL calculation 65 ml/min; Estimated Glomerular Filt Rate > 60; Glucose 92 mg/dL (65-110); Magnesium 1.9 mg/dL (1.6-2.3); Phosphorus 2.7 mg/dL (2.5-4.5); Potassium 3.1 mmol/L (3.4-5.0); Sodium 140 mmol/L (137-145)
[2024-06-02] MEDS: ACETAMINOPHEN ELIXIR 325 MG/10.15 ML UDC 650 MG PO (09:34)
[2024-06-02] MEDS: PANTOPRAZOLE SODIUM IV 40 MG VIAL IV PUSH (09:36)
[2024-06-02] MEDS: FLUTICASONE PROPIONATE 0.05% NA SPR 16 GM BTL (*BKC) 2 SPRAY NASAL (09:36)
--- NOTE | 2024-06-02 10:35 | P.PNIM_ITS ---
Progress Note: A&P Assessment and Plan (1) Partial small bowel obstruction: Code(s): K56.600 - Partial intestinal obstruction, unspecified as to cause Status: Acute Assessment and Plan: - CT abdomen/pelvis: Multiple loops of fluid-filled minimally dilated small bowel within the deep pelvis with fecalization, suggesting a partial small bowel obstruction. - general surgery consulted, awaiting formal recs. ED spoke with on-call surgeon, recommended bowel rest and NG placement. - NPO, monitor I&Os - IV fluids: 2L bolus -> 125 mL/hour - antiemetics p.r.n. - monitor electrolytes - surgery following (2) Acute non-recurrent maxillary sinusitis: Code(s): J01.00 - Acute maxillary sinusitis, unspecified Status: Acute Assessment and Plan: - head CT: No acute intracranial hemorrhage or suspicious mass effect. Inflammatory sinus disease. - symptom onset 3-4 days ago. Will proceed with conservative treatment. - start Mucinex when no longer NPO/on bowel rest (3) Anemia: Qualifiers: Anemia type: unspecified type Qualified Code(s): D64.9 - Anemia, unspecified Code(s): D64.9 - Anemia, unspecified Status: Acute Assessment and Plan: - hemoglobin 15.6 - previous range, 2023: 12.2-15.2, typically runs between 12-13 - suspect patient is mildly dehydrated secondary to partial SBO/nausea vomiting, rehydrate - 13.0/38.8 today for hg/hct (4) Fall (on) (from) other stairs and steps, initial encounter: Code(s): W10.8XXA - Fall (on) (from) other stairs and steps, initial encounter Status: Acute Assessment and Plan: - C-spine CT: 20 degree cervical dextrocurvature with moderate spondylosis. No acute osseous abnormality. - hand XR, right: Degenerative disease without acute fracture or dislocation within the right hand, as detailed above. - CXR :No focal infiltrate or effusion. - fall precautions - analgesics p.r.n. Plan Home p.o. medications held, resume when no longer NPO. 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 General surgery was consulted: Her symptoms seem more consistent with gastroenteritis or a partial obstruction, but less likely to be obstruction given the fact she did have a bowel movement this morning. Given the CT findings, it is reasonable to have NG tube placed and bowel rest. Will get an obstructive series in the morning. Could consider small-bowel follow-through if no significant improvement with obstruction. Will continue to follow patient. Pt is seen and examined. Alert, calm, pleasant, denies any pain, no n/v/d. NG in place. Review of Systems Review of Systems: All systems reviewed & are unremarkable except as noted in HPI and below Exam Narrative: normoactive BS in all quads. Const: General: comfortable and no acute distress Other: , female, nontoxic appearance HENMT: Face/Nose/Sinus: Normal nares present Mouth: Yes moist mucous membranes Eyes: General: appearance normal, both eyes and all related structures Sclera: sclerae normal Pupils: Equal, round and reactive pupils present EOM: EOMs intact bilaterally Resp: Effort & Inspection: normal respiratory effort Auscultation: clear to auscultation bilaterally Cardio: Rate: regular rate Rhythm: regular rhythm Other: S1-S2 present without murmur, rub, ectopy GI: Other: NG in place. Abdomen soft, nondistended, nontender. Normoactive bowel sounds in all quadrants. Skin: General skin exam: normal color and no rashes or lesions noted Wounds: no wounds Neuro: Cranial nerves: Yes Equal, round and reactive pupils present Speech: normal speech Motor exam (neuro): 5/5 motor strength present throughout Sensory Exam: normal sensation Other: A&O x4 Extrem: General: normal to inspection Psych: Mental Status: mental status grossly normal Affect: normal affect Other: Good insight and judgment, pleasant Objective Data Vital Signs Vital Signs: Vital Signs - 24 hr 06/01/24 10:37 06/01/24 10:43 06/01/24 13:13 Temperature Pulse Rate 109 H 84 88 Respiratory Rate 23 H 19 Blood Pressure 102/77 118/72 106/58 L Pulse Oximetry 96 100 Oxygen Delivery 06/01/24 13:42 06/01/24 14:30 06/01/24 14:43 Temperature 97.7 F Pulse Rate 85 72 Respiratory Rate 12 13 Blood Pressure 120/85 142/94 H Pulse Oximetry 98 96 Oxygen Delivery Room Air 06/01/24 20:00 06/01/24 22:00 06/02/24 06:00 Temperature 97.5 F L 97.1 F L Pulse Rate 78 66 Respiratory Rate 18 18 Blood Pressure 129/62 144/70 H Pulse Oximetry 94 98 Oxygen Delivery Room Air Intake/Output Intake/Output: Intake & Output 05/30/24 05/31/24 06/01/24 06/02/24 23:59 23:59 23:59 23:59 Intake Total 3000 916.7 Output Total 900 Balance 3000 16.7 Meds/Results Medications: Active Medications Generic Name Dose Route Start Last Admin Trade Name Freq PRN Reason Stop Dose Admin Acetaminophen 650 mg 06/01/24 13:31 06/02/24 09:34 Acetaminophen Elixir 325 Mg/10.15 Ml Udc PO 650 mg Q6H PRN Administration Mild Pain (1-3) or Fever Fluticasone Propionate 2 spray 06/02/24 09:00 06/02/24 09:36 Fluticasone Propionate 0.05% Na Spr 16 Gm Btl (*Bkc) NASAL 2 spray QAM TAYLOR Administration Hydromorphone HCl 0.5 mg 06/01/24 12:31 Hydromorphone Hcl Inj (*Crx) 1 Mg/Ml Syr IV PUSH Q4H PRN Pain Rated 7-10 Sodium Chloride 1,000 mls @ 125 mls/hr 06/01/24 12:35 06/02/24 05:13 Normal Saline Iv IV CONT 125 mls/hr .Q8H TAYLOR Administration Morphine Sulfate 2 mg 06/01/24 13:31 Morphine Sulfate (*Crx) 2 Mg/Ml Inj IV PUSH Q4H PRN Pain Rated 4-6 Naloxone HCl 0.1 mg 06/01/24 13:31 Naloxone Hcl 0.4 Mg/Ml Vial IV PUSH Q5MIN PRN Sedation Ondansetron HCl 4 mg 06/01/24 12:31 Ondansetron Inj 4 Mg/2 Ml Vial IV PUSH Q4H PRN Nausea Pantoprazole Sodium 40 mg 06/02/24 09:00 06/02/24 09:36 Pantoprazole Sodium Iv 40 Mg Vial IV PUSH 40 mg QAM TAYLOR Administration Radiology Results: ITS Impressions Head CT 06/01/24 09:49 Impression: No acute intracranial hemorrhage or suspicious mass effect. Inflammatory sinus disease. Abdomen/Pelvis CT 06/01/24 09:55 IMPRESSION: Likely partial distal small bowel obstruction, as detailed above. Cervical Spine CT 06/01/24 10:04 IMPRESSION: 1. 20 degree cervical dextrocurvature with moderate spondylosis. No acute osseous abnormality. Chest X-Ray 06/01/24 10:17 IMPRESSION: No focal infiltrate or effusion. Hand X-Ray 06/01/24 10:18 IMPRESSION: Degenerative disease without acute fracture or dislocation within the right hand, as detailed above. Abdomen X-Ray 06/02/24 10:03 IMPRESSION: Improvement in the appearance of small bowel dilatation and mural thickening, now with air in the rectum Labs Labs: Laboratory Results - last 24 hr 06/01/24 06/02/24 12:09 06:30 WBC 6.3 RBC 4.10 L Hgb 13.0 Hct 38.8 MCV 94.6 MCH 31.7 MCHC 33.5 RDW 13.0 Plt Count 182 MPV 10.3 Immature Gran % (Auto) 0.3 Neut % (Auto) 58.0 Lymph % (Auto) 32.3 [place] % (Auto) 8.1 Eos % (Auto) 0.8 Baso % (Auto) 0.5 Lymph # (Auto) 2.04 [place] # (Auto) 0.5 Eos # (Auto) 0.1 Baso # (Auto) 0.0 Abs Immat Gran (auto) 0.02 Absolute Neuts (auto) 3.7 Absolute Nucleated RBC 0.000 Nucleated RBC % 0.0 Sodium 140 Potassium 3.1 L Chloride 105 Carbon Dioxide 30 Anion Gap 5 BUN 7 D Creatinine 0.47 L Estim Creat Clear Calc 65 Estimated GFR > 60 Glucose 92 Calcium 8.3 L Phosphorus 2.7 Magnesium 1.9 Total Bilirubin 0.5 AST 26 ALT 21 Alkaline Phosphatase 54 Total Protein 6.0 L Albumin 3.3 L Urine Color Yellow Urine Appearance Clear Urine pH 5.0 Ur Specific [place] > 1.045 H Urine Protein Trace Urine Glucose (UA) Trace H Urine Ketones Negative Ur Blood (Man) 1+ H Urine Nitrate Negative Urine Bilirubin Negative Urine Urobilinogen 0.2 Leukocyte Esterase Rfl Negative Urine RBC 6-10 H Urine WBC 0-5 Ur Squamous Epith Cells None seen Urine Bacteria None seen Urine Casts 0-2 Quality VTE Prophylaxis VTE prophylaxis: mechanical ordered
--- NOTE | 2024-06-02 13:58 | PM.PNGS ---
Progress Note: A&P Assessment and Plan (1) Small bowel obstruction: Code(s): K56.609 - Unspecified intestinal obstruction, unspecified as to partial versus complete obstruction Status: Acute Assessment and Plan: Clinically no signs of SBO. Will remove NG and start clear liquids. Advance as tolerated to bland diet. Home when tolerating solid food. (2) Nausea vomiting and diarrhea: Code(s): R11.2 - Nausea with vomiting, unspecified; R19.7 - Diarrhea, unspecified Status: Acute (3) History of colon cancer: Code(s): Z85.038 - Personal history of other malignant neoplasm of large intestine Status: Acute Subjective Subjective Date/Time Seen: 06/02/24 13:58 Interval history: Bowels moving. No abd pain. No nausea/vomiting. Exam GI: Inspection: non-distended GI Palp: Yes Soft to palpation, No Tenderness to palpation present (GI), No Guarding due to palpation present (GI), No Hernia present and No Rebound tenderness present Percussion: Yes normal to percussion Auscultation: normal bowel sounds Objective Data Vital Signs Vital Signs: Vital Signs - 24 hr 06/01/24 14:30 06/01/24 14:43 06/01/24 20:00 Temperature 97.7 F Pulse Rate 72 Respiratory Rate 13 Blood Pressure 142/94 H Pulse Oximetry 96 Oxygen Delivery Room Air Room Air 06/01/24 22:00 06/02/24 06:00 Temperature 97.5 F L 97.1 F L Pulse Rate 78 66 Respiratory Rate 18 18 Blood Pressure 129/62 144/70 H Pulse Oximetry 94 98 Oxygen Delivery Intake/Output Intake/Output: Intake & Output 05/30/24 05/31/24 06/01/24 06/02/24 23:59 23:59 23:59 23:59 Intake Total 3000 916.7 Output Total 900 Balance 3000 16.7 Meds/Results Medications: Active Medications Generic Name Dose Route Start Last Admin Trade Name Freq PRN Reason Stop Dose Admin Acetaminophen 650 mg 06/01/24 13:31 06/02/24 09:34 Acetaminophen Elixir 325 Mg/10.15 Ml Udc PO 650 mg Q6H PRN Administration Mild Pain (1-3) or Fever Fluticasone Propionate 2 spray 06/02/24 09:00 06/02/24 09:36 Fluticasone Propionate 0.05% Na Spr 16 Gm Btl (*Bkc) NASAL 2 spray QAM TAYLOR Administration Hydromorphone HCl 0.5 mg 06/01/24 12:31 Hydromorphone Hcl Inj (*Crx) 1 Mg/Ml Syr IV PUSH Q4H PRN Pain Rated 7-10 Morphine Sulfate 2 mg 06/01/24 13:31 Morphine Sulfate (*Crx) 2 Mg/Ml Inj IV PUSH Q4H PRN Pain Rated 4-6 Naloxone HCl 0.1 mg 06/01/24 13:31 Naloxone Hcl 0.4 Mg/Ml Vial IV PUSH Q5MIN PRN Sedation Ondansetron HCl 4 mg 06/01/24 12:31 Ondansetron Inj 4 Mg/2 Ml Vial IV PUSH Q4H PRN Nausea Pantoprazole Sodium 40 mg 06/02/24 09:00 06/02/24 09:36 Pantoprazole Sodium Iv 40 Mg Vial IV PUSH 40 mg QAM TAYLOR Administration Radiology Results: ITS Impressions Head CT 06/01/24 09:49 Impression: No acute intracranial hemorrhage or suspicious mass effect. Inflammatory sinus disease. Abdomen/Pelvis CT 06/01/24 09:55 IMPRESSION: Likely partial distal small bowel obstruction, as detailed above. Cervical Spine CT 06/01/24 10:04 IMPRESSION: 1. 20 degree cervical dextrocurvature with moderate spondylosis. No acute osseous abnormality. Chest X-Ray 06/01/24 10:17 IMPRESSION: No focal infiltrate or effusion. Hand X-Ray 06/01/24 10:18 IMPRESSION: Degenerative disease without acute fracture or dislocation within the right hand, as detailed above. Abdomen X-Ray 06/02/24 10:03 IMPRESSION: Improvement in the appearance of small bowel dilatation and mural thickening, now with air in the rectum Labs Labs: Laboratory Results - last 24 hr 06/02/24 06:30 WBC 6.3 RBC 4.10 L Hgb 13.0 Hct 38.8 MCV 94.6 MCH 31.7 MCHC 33.5 RDW 13.0 Plt Count 182 MPV 10.3 Immature Gran % (Auto) 0.3 Neut % (Auto) 58.0 Lymph % (Auto) 32.3 [place] % (Auto) 8.1 Eos % (Auto) 0.8 Baso % (Auto) 0.5 Lymph # (Auto) 2.04 [place] # (Auto) 0.5 Eos # (Auto) 0.1 Baso # (Auto) 0.0 Abs Immat Gran (auto) 0.02 Absolute Neuts (auto) 3.7 Absolute Nucleated RBC 0.000 Nucleated RBC % 0.0 Sodium 140 Potassium 3.1 L Chloride 105 Carbon Dioxide 30 Anion Gap 5 BUN 7 D Creatinine 0.47 L Estim Creat Clear Calc 65 Estimated GFR > 60 Glucose 92 Calcium 8.3 L Phosphorus 2.7 Magnesium 1.9 Total Bilirubin 0.5 AST 26 ALT 21 Alkaline Phosphatase 54 Total Protein 6.0 L Albumin 3.3 L
[2024-06-02 14:00] VITALS: BP 137/69; PULSE 71; RESP 18; TEMP 36.2; O2SAT 96
[2024-06-02 22:00] VITALS: BP 134/60; PULSE 66; RESP 20; TEMP 36.8; O2SAT 97
[2024-06-03 06:00] VITALS: BP 129/75; PULSE 63; RESP 20; TEMP 36.8; O2SAT 95
[2024-06-03] MEDS: ACETAMINOPHEN 325 MG TABLET 650 MG PO (09:01)
[2024-06-03] MEDS: PANTOPRAZOLE 40 MG TABLET PO (09:01)
[2024-06-03] MEDS: FLUTICASONE PROPIONATE 0.05% NA SPR 16 GM BTL (*BKC) 2 SPRAY NASAL (09:04)
--- NOTE | 2024-06-03 12:29 | PM.PNGS ---
Progress Note: A&P Assessment and Plan (1) Small bowel obstruction: Code(s): K56.609 - Unspecified intestinal obstruction, unspecified as to partial versus complete obstruction Status: Acute Assessment and Plan: Tolerating a solid diet and bowels moving. Okay to discharge from a surgical standpoint. No follow-up with surgery needed. (2) Nausea vomiting and diarrhea: Code(s): R11.2 - Nausea with vomiting, unspecified; R19.7 - Diarrhea, unspecified Status: Acute (3) History of colon cancer: Code(s): Z85.038 - Personal history of other malignant neoplasm of large intestine Status: Acute Plan I have discussed the patient's case and plan of care with Dr. Ferrer. Subjective Subjective Date/Time Seen: 06/03/24 12:29 Patient reports: no new complaints, feels better, tolerating a regular diet, flatus and bowel movement Interval history: Tolerating solid food for breakfast. No abdominal pain, nausea, or vomiting. Exam Const: General: comfortable and no acute distress Orientation/consciousness: patient oriented x3 GI: Inspection: non-distended GI Palp: Yes Soft to palpation, No Tenderness to palpation present (GI) and No Guarding due to palpation present (GI) Auscultation: normal bowel sounds Objective Data Vital Signs Vital Signs: Vital Signs - 24 hr 06/02/24 14:00 06/02/24 22:00 06/03/24 06:00 Temperature 97.2 F L 98.2 F 98.2 F Pulse Rate 71 66 63 Respiratory Rate 18 20 20 Blood Pressure 137/69 134/60 129/75 Pulse Oximetry 96 97 95 Intake/Output Intake/Output: Intake & Output 05/31/24 06/01/24 06/02/24 06/03/24 23:59 23:59 23:59 23:59 Intake Total 3000 1596.7 780 Output Total 900 Balance 3000 696.7 780 Meds/Results Medications: Active Medications Generic Name Dose Route Start Last Admin Trade Name Freq PRN Reason Stop Dose Admin Acetaminophen 650 mg 06/02/24 19:22 06/03/24 09:01 Acetaminophen 325 Mg Tablet PO 650 mg Q4H PRN Administration Headache Fluticasone Propionate 2 spray 06/02/24 09:00 06/03/24 09:04 Fluticasone Propionate 0.05% Na Spr 16 Gm Btl (*Bkc) NASAL 2 spray QAM TAYLOR Administration Hydromorphone HCl 0.5 mg 06/01/24 12:31 Hydromorphone Hcl Inj (*Crx) 1 Mg/Ml Syr IV PUSH Q4H PRN Pain Rated 7-10 Morphine Sulfate 2 mg 06/01/24 13:31 Morphine Sulfate (*Crx) 2 Mg/Ml Inj IV PUSH Q4H PRN Pain Rated 4-6 Naloxone HCl 0.1 mg 06/01/24 13:31 Naloxone Hcl 0.4 Mg/Ml Vial IV PUSH Q5MIN PRN Sedation Ondansetron HCl 4 mg 06/01/24 12:31 Ondansetron Inj 4 Mg/2 Ml Vial IV PUSH Q4H PRN Nausea Pantoprazole Sodium 40 mg 06/03/24 09:00 06/03/24 09:01 Pantoprazole 40 Mg Tablet PO 40 mg QAM TAYLOR Administration Radiology Results: ITS Impressions Head CT 06/01/24 09:49 Impression: No acute intracranial hemorrhage or suspicious mass effect. Inflammatory sinus disease. Abdomen/Pelvis CT 06/01/24 09:55 IMPRESSION: Likely partial distal small bowel obstruction, as detailed above. Cervical Spine CT 06/01/24 10:04 IMPRESSION: 1. 20 degree cervical dextrocurvature with moderate spondylosis. No acute osseous abnormality. Chest X-Ray 06/01/24 10:17 IMPRESSION: No focal infiltrate or effusion. Hand X-Ray 06/01/24 10:18 IMPRESSION: Degenerative disease without acute fracture or dislocation within the right hand, as detailed above. Abdomen X-Ray 06/02/24 10:03 IMPRESSION: Improvement in the appearance of small bowel dilatation and mural thickening, now with air in the rectum
[2024-06-03 13:57] VITALS: BP 132/62; PULSE 70; RESP 16; TEMP 36.4; O2SAT 98
--- NOTE | 2024-06-03 14:13 | PM.DS ---
DS: Admitting Diagnosis Discharge Date 06/03 Admitting Diagnosis abd pain DS: Discharge Diagnosis Discharge Diagnosis (1) Partial small bowel obstruction: Code(s): K56.600 - Partial intestinal obstruction, unspecified as to cause Status: Acute (2) Acute non-recurrent maxillary sinusitis: Code(s): J01.00 - Acute maxillary sinusitis, unspecified Status: Acute (3) Anemia: Qualifiers: Anemia type: unspecified type Qualified Code(s): D64.9 - Anemia, unspecified Code(s): D64.9 - Anemia, unspecified Status: Acute (4) Fall (on) (from) other stairs and steps, initial encounter: Code(s): W10.8XXA - Fall (on) (from) other stairs and steps, initial encounter Status: Acute DS: Summary Hospital Course Hospital Course: 73 y/o F admitted with multiple medical complaints with PMH of SBO, anemia, GERD, hypertension, 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 General surgery was consulted, pt's symptoms more consistent with gastroenteritis but less likely to be obstruction given the fact she did have a bowel movement this morning. She had NG tube placed and bowel rest on 06/02. 06/03 NG was d/donavan and diet advanced. Pt tolerated it well and was cleared for discharge from surgery. NO f/u is needed. She was passing gas, no n/v/d. Status at Discharge Functional status at discharge: independent ambulation Overall status at discharge: patient is back to baseline Time Spent with Patient Time attestation: Total time spent providing and/or coordinating discharge services: Time spent: Greater than 30 minutes Exam Narrative: normoactive BS in all quads. Const: General: comfortable and no acute distress Other: , female, nontoxic appearance HENMT: Face/Nose/Sinus: Normal nares present Mouth: Yes moist mucous membranes Eyes: General: appearance normal, both eyes and all related structures Sclera: sclerae normal Pupils: Equal, round and reactive pupils present EOM: EOMs intact bilaterally Resp: Effort & Inspection: normal respiratory effort Auscultation: clear to auscultation bilaterally Cardio: Rate: regular rate Rhythm: regular rhythm Other: S1-S2 present without murmur, rub, ectopy GI: Other: Abdomen soft, nondistended, nontender. Normoactive bowel sounds in all quadrants. Skin: General skin exam: normal color and no rashes or lesions noted Wounds: no wounds Neuro: Cranial nerves: Yes Equal, round and reactive pupils present Speech: normal speech Motor exam (neuro): 5/5 motor strength present throughout Sensory Exam: normal sensation Other: A&O x4 Extrem: General: normal to inspection Psych: Mental Status: mental status grossly normal Affect: normal affect Other: Good insight and judgment, pleasant Discharge Plan Discharge Attending physician on discharge: Lai Harris Consulting providers: Will Ferrer Discharging Clinician: Judith Garg Patient Disposition: Home, Self-Care Activity: august shower Diet: as tolerated and heart healthy Discharge Instructions: You were admitted for small bowel obstruction. Surgery was consulted and you were managed with supportive measures: NG tube, bowel rest, IV fluids. NG was stopped, diet advanced and you tolerated it well. Surgery cleared you for discharge with no f/u is needed. Watch out for return abd pain and/or any other symptoms- if that happens-return to ed right away. f/u with PCP within couple week from discharge. Patient Instructions: Antibiotic Form Patient Language: Russian Stand Alone Forms: General Discharge Information Follow-up/Referrals: Tarun Villegas MD [Primary Care Provider] - 2 Weeks Discharge Medications: Continued meloxicam 15 mg tablet 15 mg PO DAILY PRN (Reason: pain) Qty: 30 11RF cyclobenzaprine 5 mg tablet 5 mg PO BID PRN (Reason: muscle spasm) Qty: 60 3RF acetaminophen [Tylenol Arthritis Pain] 650 mg tablet extended release 650 mg PO Q8H PRN (Reason: pain) triamcinolone acetonide [Nasacort Allergy] 55 mcg aerosol,spray 1 spray intranasal DAILY Rx Instructions: administer into each nostril cholecalciferol (vitamin D3) 50 mcg (2,000 unit) capsule 2,000 unit PO DAILY lysine [L-Lysine] 500 mg tablet 500 mg PO DAILY Centrum Silver Women 8 mg iron-400 mcg-300 mcg tablet 1 tablet PO DAILY escitalopram oxalate [Lexapro] 10 mg tablet 10 mg PO DAILY Qty: 90 3RF pravastatin 40 mg tablet 40 mg PO QHS Qty: 90 3RF bupropion HCl [Wellbutrin XL] 150 mg tablet extended release 24 hr 150 mg PO QAM Qty: 90 3RF quetiapine [Seroquel] 25 mg tablet 25 mg PO QHS Qty: 90 3RF Date of admission: 06/01/24 13:43 Primary Care Provider: Tarun Villegas Admitting Provider: Mike Prieto Attending physician on admission: Mike Prieto Condition: Stable Quality VTE Prophylaxis VTE prophylaxis: mechanical ordered
== END 2024-06-03 16:50 | disposition home or self-care (01) | DRG 390 ==
LOC: ANHED 12:21 → ANH3MEDSUR 13:14
PROVIDERS: Emergency Medicine; Student in an Organized Health Care Education/Training Program; Admitting Provider Internal Medicine; Emergency Provider Physician Assistant; PCP Family Medicine; Visit Provider Nurse Practitioner
DX: K56.600 Partial intestinal obstruction, unspecified as to cause (principal); K52.9 Noninfective gastroenteritis and colitis, unspecified; J01.00 Acute maxillary sinusitis, unspecified; D64.9 Anemia, unspecified; W10.8XXA Fall (on) (from) other stairs and steps, initial encounter; E86.0 Dehydration; K21.9 Gastro-esophageal reflux disease without esophagitis; I10 Essential (primary) hypertension; E78.2 Mixed hyperlipidemia; Z86.16 Personal history of COVID-19; Z85.038 Personal history of other malignant neoplasm of large intestine; Z85.118 Personal history of other malignant neoplasm of bronchus and lung
CPT/HCPCS: 36415; 70450; 71046; 72125; 73130; 74019; 74177; 80053; 81001; 83690; 83735; 84100; 85025; 87637; 96361; 96374; 96375; 96376; 99285; A9270; G0378; J2405; J2470; J7030; J7120; Q9967

== ENCOUNTER 2024-08-03 08:53 | Day surgery (SDC) | payer MEDICARE, OTHER, SELFPAY ==
--- NOTE | ~2024-08-03 | XR_ITS ---
EXAMINATION: XR fluoroscopy no charge DATE: 08/03/2024 9:45 CDT INDICATION: DIAG/PROG RIGHT C2-3,C3,C4 MEDIAL BRANCH BLOCK . TECHNIQUE: 3 fluoroscopic images of the cervical spine were obtained during diagnostic/prognostic rig ht C2-3, C3, C4 medial branch block, performed by Ace Escalona MD. I was not present during the p rocedure. Fluoroscopy exposure time was 27.2 seconds. Air Kerma 1.26 mGy. COMPARISON: None FINDINGS/IMPRESSION: Fluoroscopic documentation of diagnostic/prognostic right C2-3, C3, C4 medial branch block. Please re tara to the operative note for complete procedural details . Reviewed, dictated and finalized at location K.
--- NOTE | 2024-08-03 08:55 | WPDHPUPDATE1 ---
History and Physical Update Update Date/Time: 08/03/24 08:55 History and Physical has been reviewed, including an updated exam of the patient. There are NO changes in the patient's condition. Risks, benefits, and alternatives have been discussed and questions answered. Patient agrees to proceed with procedure.
--- NOTE | 2024-08-03 08:56 | W.PM.PROC2 ---
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 Post-op Diagnosis Same Procedure Performed Diagnostic Right Cervical Medial Branch Blocks at C2-3, C3, C4 Blocking the Ipsilateral C2-3, C3-4 Facet Joints Under Fluoroscopic Guidance and with Contrast Control (2 levels blocked). 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 Anesthesia Local Description of Procedure INFORMED CONSENT: Risks, benefits and alternatives to the procedure were discussed in detail with the patient who expressed explicit understanding and consent to proceed. Patient was informed verbally and in written form regarding the risks associated with the procedure including the low risk of serious infection, bleeding/bruising, allergic reaction, nerve or organ injury, paralysis, procedural site pain or discomfort, worsening pain and/or mobility, failure to treat and/or disfigurement. The patient expressed explicit understanding and consent to proceed. All materials required for the procedure were available prior to procedure start. Site and side was marked prior to procedure and confirmed in the presence of the patient. PROCEDURE IN DETAIL: The patient was brought to the procedural suite and placed in the left lateral decubitus position with head stabilized. Patient was made comfortable with use of pillows under the head and between the knees and ankles. Skin overlying the injection site on the affected side was prepared broadly with tinted 3ml ChloraPrep applicator and draped in a sterile manner. Aseptic technique was used throughout. The endplates of the vertebral bodies at the site(s) of interest were aligned in the lateral fluoroscopic view relative to the patient. Image was optimized for visualization of the pars interarticularis at each target site. Local anesthesia was established by infiltration with approximately 5 mL of 1% lidocaine via a 1-1/2 inch 27- gauge needle. A 25-gauge 3.5 inch Quincke spinal needle was advanced until the needle tip contacted the periosteum of the pars interarticularis at the target site, the right C2-3 medial branch. AP view was utilized to confirm the appropriate placement of the needle tip just lateral to the periosteum at the center point of the pars interarticularis. In the lateral view, 0.25 mL of Omnipaque 300 contrast medium was injected after negative aspiration for CSF, blood or other bodily fluid, showing appropriate extra-articular spread of contrast without evidence of intravascular, foraminal or intrathecal placement. A 0.25 mL solution of 0.5% PF bupivacaine was injected after negative repeat aspiration. Appropriate spread of the injectate was confirmed with washout of previously injected contrast. No parasthesias were elicited. Needle was removed completely intact without difficulty. [The same procedure was repeated for all additional intended levels/structures treated on the ipsilateral side, the right C3, C4 medial branches with identical methodology modified to compensate for different location, with similar results and no evidence of complication.] Images were saved and documented in the patient chart. Patient's skin was cleaned and sterile bandage applied. The patient tolerated the procedure well. The patient was transported to the recovery area in stable condition where they were observed for an appropriate amount of time prior to discharge, without evidence of complication. Patient was instructed on the appropriate completion of a pain diary over the next 12-24 hours. The patient was instructed to avoid excessive activity for the next 48 hours, including climbing and frequent use of stairs. Showers only for 48 hours. They were instructed not to drive or operate heavy machinery for 24 hours. They are to monitor for severe headaches, fevers, chills, night sweats, erythema/swelling at the site or any other signs of infection, bleeding/bruising, bowel or bladder changes as well as new pain, weakness or numbness in the upper or lower extremity. Should they notice these changes, they are instructed to call our office immediately or report directly to the nearest Emergency Department if no answer or if after posted office hours. COMPLICATIONS: None. COMMENTS: None. CONTRAST WASTED: 29.25mL Omnipaque 300. Complications No immediate complications Condition Stable Disposition Same day [facility] Billing Surgery - Charge Forward: Surgery Billing
[2024-08-03 09:25] VITALS: BP 144/71; PULSE 65; RESP 18; TEMP 36.8; O2SAT 97
[2024-08-03 09:49] VITALS: BP 155/77; PULSE 75; RESP 19; O2SAT 96
[2024-08-03 09:57] VITALS: BP 161/74; PULSE 63; RESP 19; O2SAT 96
[2024-08-03] MEDS: BUPivacaine HCL 0.5% 10 ML AMP INFILTRATE (09:58)
[2024-08-03] MEDS: LIDOCAINE 1% PF INJ 5 ML VIAL INFILTRATE (09:58)
[2024-08-03 10:02] VITALS: BP 136/73; PULSE 69; RESP 15; O2SAT 99
== END 2024-08-03 10:16 | disposition home or self-care (01) ==
LOC: ASC 09:14
PROVIDERS: PCP Family Medicine; Visit Provider Anesthesiology Pain Medicine
PROC: (CPT 64490; principal; 2024-08-03 10:15)
DX: M47.812 Spondylosis without myelopathy or radiculopathy, cervical region (principal); G89.29 Other chronic pain
CPT/HCPCS: 64490; 64491; 99199

== ENCOUNTER 2024-09-14 05:59 | Day surgery (SDC) | payer MEDICARE, OTHER, SELFPAY ==
--- NOTE | ~2024-09-14 | XR_ITS ---
XR fluoroscopy no charge Indication:right C2-3, C3-4 medial branch nerve block TECHNIQUE: Fluoroscopy used during right C2-3, C3-4 medial branch nerve block performed by [Shane Escalona MD] on 09/14/2024. 30 seconds of fluoroscopy with 7 fluoroscopic images captured. FINDINGS: Correlate with procedure note. IMPRESSION: Fluoroscopy used during right C2-3, C3-4 medial branch nerve block. Reviewed, dictated and finalized at location B.
[2024-09-14 06:25] VITALS: BP 147/70; PULSE 64; RESP 15; TEMP 36.2; O2SAT 97
--- NOTE | 2024-09-14 06:25 | WPDHPUPDATE1 ---
History and Physical Update Update Date/Time: 09/14/24 06:25 History and Physical has been reviewed, including an updated exam of the patient. There are NO changes in the patient's condition. Risks, benefits, and alternatives have been discussed and questions answered. Patient agrees to proceed with procedure.
--- NOTE | 2024-09-14 06:26 | P.OP_ITS ---
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 Surgeon Ace Escalona MD Associate Professor Of Theatre None. Anesthesia Local Description of Procedure INFORMED CONSENT: Risks, benefits and alternatives to the procedure were discussed in detail with the patient who expressed explicit understanding and consent to proceed. Patient was informed verbally and in written form regarding the risks associated with the procedure including the low risk of serious infection, bleeding/bruising, allergic reaction, nerve or organ injury, paralysis, procedural site pain or discomfort, worsening pain and/or mobility, failure to treat and/or disfigurement. The patient expressed explicit understanding and consent to proceed. All materials required for the procedure were available prior to procedure start. Site and side was marked prior to procedure and confirmed in the presence of the patient. PROCEDURE IN DETAIL: The patient was brought to the procedural suite and placed in the left lateral decubitus position with head stabilized. Patient was made comfortable with use of pillows under the head and between the knees and ankles. Skin overlying the injection site on the affected side was prepared broadly with tinted 3ml ChloraPrep applicator and draped in a sterile manner. Aseptic technique was used throughout. The endplates of the vertebral bodies at the site(s) of interest were aligned in the lateral fluoroscopic view relative to the patient. Image was optimized for visualization of the pars interarticularis at each target site. Local anesthesia was established by infiltration with approximately 5 mL of 1% lidocaine via a 1-1/2 inch 27- gauge needle. A 25-gauge 3.5 inch Quincke spinal needle was advanced until the needle tip contacted the periosteum of the pars interarticularis at the target site, the right C2-3 medial branch. AP view was utilized to confirm the appropriate placement of the needle tip just lateral to the periosteum at the center point of the pars interarticularis. In the lateral view, 0.25 mL of Omnipaque 300 contrast medium was injected after negative aspiration for CSF, blood or other bodily fluid, showing appropriate extra-articular spread of contrast without evidence of intravascular, foraminal or intrathecal placement. A 0.25 mL solution of 2.0% PF lidocaine was injected after negative repeat aspiration. Appropriate spread of the injectate was confirmed with washout of previously injected contrast. No parasthesias were elicited. Needle was removed completely intact without difficulty. The same procedure was repeated for all additional intended levels/structures treated on the ipsilateral side, the right C3, C4 medial branches with identical methodology modified to compensate for different location, with similar results and no evidence of complication. Images were saved and documented in the patient chart. Patient's skin was cleaned and sterile bandage applied. The patient tolerated the procedure well. The patient was transported to the recovery area in stable condition where they were observed for an appropriate amount of time prior to discharge, without evidence of complication. Patient was instructed on the appropriate completion of a pain diary over the next 12-24 hours. The patient was instructed to avoid excessive activity for the next 48 hours, including climbing and frequent use of stairs. Showers only for 48 hours. They were instructed not to drive or operate heavy machinery for 24 hours. They are to monitor for severe headaches, fevers, chills, night sweats, erythema/swelling at the site or any other signs of infection, bleeding/bruising, bowel or bladder changes as well as new pain, weakness or numbness in the upper or lower extremity. Should they notice these changes, they are instructed to call our office immediately or report directly to the nearest Emergency Department if no answer or if after posted office hours. COMPLICATIONS: None. COMMENTS: None. CONTRAST WASTED: 29.25mL Omnipaque 300. Complications No immediate complications Condition Stable Disposition Same day [facility] Billing Surgery - Charge Forward: Surgery Billing
[2024-09-14 07:32] VITALS: BP 153/78; PULSE 60; RESP 20; O2SAT 97
[2024-09-14 07:36] VITALS: BP 164/70; PULSE 59; RESP 15; O2SAT 97
[2024-09-14] MEDS: LIDOCAINE 1% PF INJ 5 ML VIAL INFILTRATE (07:40)
[2024-09-14] MEDS: LIDOCAINE 2% PF LOCAL INJ 5 ML VIAL 3 ML INFILTRATE (07:41)
[2024-09-14 07:42] VITALS: BP 148/80; PULSE 62; RESP 16; O2SAT 98
== END 2024-09-14 07:55 | disposition home or self-care (01) ==
PROVIDERS: PCP Family Medicine; Visit Provider Anesthesiology Pain Medicine
PROC: (CPT 64490; principal; 2024-09-14 07:30)
DX: M47.812 Spondylosis without myelopathy or radiculopathy, cervical region (principal); G89.29 Other chronic pain
CPT/HCPCS: 64490; 64491; 99199

== ENCOUNTER 2024-12-30 15:00 | Outpatient (CLI) | payer MEDICARE, OTHER, SELFPAY ==
--- NOTE | ~2024-12-30 | MM_ITS ---
EXAMINATION: MM screening alvarez BI w jaswant HISTORY: Screening TECHNIQUE: Craniocaudal and mediolateral oblique 3-D tomosynthesis images were obtained and synthetic 2-D images were generated. CAD analysis was submitted and interpreted. COMPARISON: 12/25/2023 BREAST PARENCHYMAL COMPOSITION: Not Dense: The breasts are almost entirely fatty. FINDINGS: There is no evidence of suspicious mass, calcification, or architectural distortion to suggest malignancy. There has been no suspicious interval change. IMPRESSION: 1. No mammographic evidence of malignancy. Recommend routine screening mammography in one year. BI-RADS Category 2: Benign finding(s) Reviewed, dictated and finalized at location Q. IMPRESSION: 1. No mammographic evidence of malignancy. Recommend routine screening mammogra phy in one year. BI-RADS Category 2: Benign finding(s)
== END 2024-12-30 15:01 | disposition home or self-care (01) ==
LOC: MICIMG 15:00
PROVIDERS: PCP Family Medicine; Visit Provider Family Medicine
DX: Z12.31 Encounter for screening mammogram for malignant neoplasm of breast (principal)
CPT/HCPCS: 77063; 77067

== ENCOUNTER 2025-01-21 16:41 | Outpatient (CLI) | payer MEDICARE, OTHER, SELFPAY ==
[2025-01-21 17:17] LABS: Hematocrit 39.6 % (37.0-47.0); Hemoglobin 13.5 g/dL (12.0-15.0)
== END 2025-01-21 16:42 | disposition home or self-care (01) ==
LOC: ANHLAB 16:43
PROVIDERS: PCP Family Medicine; Visit Provider Anesthesiology
DX: Z01.812 Encounter for preprocedural laboratory examination (principal); D64.9 Anemia, unspecified
CPT/HCPCS: 36415; 85014; 85018

== ENCOUNTER 2025-02-01 05:52 | Day surgery (SDC) | payer MEDICARE, OTHER, SELFPAY ==
[2025-01-19 11:51] VITALS: BMI 25.4
--- NOTE | ~2025-02-01 | XR_ITS ---
XR fluoroscopy no charge Indication: Thermal radiofrequency ablation right C2-3, C3-4 medial branch dorsal nerve root TECHNIQUE: Fluoroscopy used during Thermal radiofrequency ablation right C2-3, C3-4 medial branch dorsal nerve root performed by [Ace Escalona MD] on 02/01/2025. 37 seconds of fluoroscopy with 20 fluoroscopic images captured. FINDINGS: Correlate with procedure note. IMPRESSION: Fluoroscopy used during Thermal radiofrequency ablation right C2-3, C3-4 medial branch dorsal nerve root. Reviewed, dictated and finalized at location C.
[2025-02-01 06:12] VITALS: BP 159/65; PULSE 61; RESP 15; TEMP 36.8; O2SAT 97
[2025-02-01] MEDS: LACTATED RINGERS 1,000 ML 30 ML IV CONT (06:35)
--- NOTE | 2025-02-01 07:09 | P.PNAN_ITS ---
Anes - Initial Pre Proc Eval Procedure: Operation Date: 02/01/25 07:30 Proposed Procedures p Thermal Radiofrequency Ablation Right C2-3, C3, C4 Medial Branch/Dorsal Rami Supplying Right C2-3, C3-4 Facet Joints under Fluoroscopic Guidance with Contrast Control - Ace Escalona MD Date/Time: 02/01/25 07:09 Surgeon: Ace Escalona MD Pre Op Diagnosis: Cervical Spondylosis w/o Myelopathy or Radiculop. Patient Data Age: 74 Gender: F Height: 1.55 m Weight: 59.75 kg Last Vital Signs Temp 98.2 F 02/01/25 06:12 Pulse 61 02/01/25 06:12 Resp 15 02/01/25 06:12 BP 159/65 H 02/01/25 06:12 Pulse Ox 97 02/01/25 06:12 O2 Del Method Room Air 02/01/25 06:12 Allergies Allergy/AdvReac Type Severity Reaction Status Date / Time metoclopramide (From Reglan) AdvReac Intermediate Muscle Verified 02/01/25 06:11 Spasms Home Medications ?Medication ?Instructions ?Recorded ?Confirmed ?Type lysine 500 mg tablet (L-Lysine) 500 mg PO DAILY 02/01/25 History ucydviyr-lnqb-pzko 8 mg-folic 400 1 tablet PO DAILY 02/01/25 History mcg-K 50 mcg-lutein 300 mcg tablet (Centrum Silver Women) triamcinolone acetonide 55 mcg 1 spray intranasal KENNY Y 10/22/21 02/01/25 History nasal spray aerosol (Nasacort Allergy) cholecalciferol (vitamin D3) 50 2,000 unit PO DAILY 02/01/25 History mcg (2,000 unit) capsule cyclobenzaprine 5 mg tablet 5 mg PO BID PRN muscle spa sm #60 02/12/24 02/01/25 Rx tabs bupropion HCl 150 mg 24 hr tablet, 150 mg PO QAM #90 t abs 04/05/24 02/01/25 Rx extended release (Wellbutrin XL) escitalopram oxalate 10 mg tablet 10 mg PO DAILY #90 t abs 04/05/24 02/01/25 Rx (Lexapro) pravastatin 40 mg tablet 40 mg PO QHS #90 tabs 02/01/25 Rx quetiapine 25 mg tablet (Seroquel) 25 mg PO QHS #90 ta bs 05/21/24 02/01/25 Rx zinc 50 mg capsule 50 mg PO DAILY 09/07/2401/06 History meloxicam 15 mg tablet 15 mg PO DAILY PRN pain #30 tabs 12/27/24 02/01/25 Rx : patient denies Patient hx anesthesia problems: none Family hx anesthesia problems: none Results Review: All pre-operative results and documents have been reviewed as part of the pre- operative evaluation. [facility] Past Medical History Medical History Multiple fractures of ribs of right side (08/15/21) right posterior lateral rib fractures 8, 9, 10 08/15/2021. ER 08/19/2021. Low magnesium level magnesium 1.9 on 06/30/2023 with low potassium 3.2 on 07/01/2023. Magnesium 2.2 on 02/23/2024. Partial small bowel obstruction Colon cancer screening Rectal polyps on 11/29/2021 with recheck in 5 years. Small bowel obstruction 09/08/2022 with resolution 09/11/2022. recurrence 06/27/2023 through 07/01/2023. Fall (on) (from) other stairs and steps, initial encounter GERD (gastroesophageal reflux disease) (~03/2022) Elevated liver transaminase level AST 47, ALT 36 on 08/24/2023. AST 17, ALT 17 on 02/23/2024. Nausea vomiting and diarrhea BMI 25.0-25.9,adult Mixed hyperlipidemia total cholesterol 233, triglycerides 238, HDL 54, LDL 141 with ratio of 4.3 on 10/24/2022. cholesterol 205, triglycerides 213, HDL 52, LDL 120, ratio 3.9 on 04/15/2023. Cholesterol 220, triglycerides 360, HDL 55, LDL 114 with ratio of 4.0 on 02/23/2024. Vitamin D deficiency, unspecified level at 36 on 04/17/2022. Level normal at 54 on 02/23/2024. Delayed gastric emptying Abnormal digestive system diagnostic imaging Hyponatremia SBO (small bowel obstruction) At low risk for fall Chronic neck pain X-ray of the C-spine on 07/10/2023 with moderate spo Partial small bowel obstruction Hospital discharge follow-up follow-up of small-bowel obstruction from 09/08/2022. Hypokalemia Potassium was low at 3.9 on 09/11/2022.Potassium normal at 4.3 With magn esium normal at 2.2 on 10/24/2022. Anemia Hemoglobin was low at 11.5 on 09/11/2022.Hemoglobin 13.8 with iron 104 with 34% saturation and ferritin 43 with vitamin B12 485 and folic acid 24 on 10/24/2022. Hemoglobin 13.8 with iron 98 with 32% saturation and ferritin 48 with vitamin B12 545 and folic acid 22.7 on 02/23/2024. Colon polyp, hyperplastic (11/29/21) rectal polyps 11/29/2021 with recheck in 5 years. COVID-19 (04/03/22) tested positive 04/04/2022. Paxlovid 04/05/2022. BMI 26.0-26.9,adult Breast cancer screening by mammogram Normal mammogram 07/11/2021. Normal mammogram 12/24/2023. Chronic anxiety Essential (primary) hypertension Contact dermatitis due to plant Secondary malignant neoplasm of unspecified lung Surgical History Surgical History Colon cancer metastasized to lung Lung metastasis resected in 2008, no further recurrence History of total colectomy Obstructing sigmoid colon cancer in 2001 and had a sigmoid colon resection with end colostomy and treated with chemotherapy. Colonoscopy a few months later showed a colon polyp and she had a subtotal colectomy in 2002 with ileorectal anastomosis. History of exploratory laparotomy 2013 ex lap with adhesiolysis for SBO Family History Family History Sibling Diabetes mellitus Patient's sister is in good health Mother Patient's mother is , Onset Age: 81 Family history of malignant neoplasm of breast Father Family history of cardiovascular disease, Onset Age: 67 Hypertension Acute myocardial infarction Social History Social History Social History: Surrogate medical decision maker: Rodri Paez, spouse. Code status: Full code. Smoking status: Never smoker Second hand tobacco smoke exposure: Yes Alcohol intake: never Substance use: never Substance use type: does not use Do You Feel Safe in your Home?: Yes Lack of Transportation: No Lack of Food: Never True Current Housing: I Have Housing Concerned About Future Housing: Decline to Answer Difficulty Paying Gas/Electric Bills: Decline to Answer Difficulty Paying for Meds: Decline to Answer Currently Unemployed: Decline to Answer Education: High School Diploma/GED Difficulty w/ Childcare or Family Care: Decline to Answer Living arrangements: with family Spiritual care concerns: No Anes - Eval Final PreProcedure Day of Procedure 02/01/25 07:09 Heart: regular rate and rhythm Lungs: clear to auscultation and normal air movement Airway: Mallampati scale Neurological: alert and oriented Last oral intake: >/= 8 hours ASA classification: III Emergent: no Anesthetic plan: proceed Anesthesia type and monitoring: general GIVS and standard monitoring Results Review: All pre-operative results and documents have been reviewed as part of the pre- operative evaluation. Informed Consent: The patient's anesthetic plan and its attendant risks and benefits were discussed with the patient/family/POA. Questions were solicited and answers provided to the satisfaction of the patient/family/POA.
--- NOTE | 2025-02-01 07:17 | PM.HPGS ---
History of Present Illness History of Present Illness Consent: Risks, benefits, and alternatives have been discussed and questions answered. Patient agrees to proceed with procedure. Chief complaint: Cervical Spondylosis w/o Myelopathy or Radiculop. Narrative: Rowena Paez is a 74 year old female with chronic, recalcitrant and disabling right-sided cervical pain secondary to degenerative spondylosis with failure to respond to aggressive conservative measures including PT, oral and topical analgesics, opioid and nonopioid analgesics, rest, time and activity/behavioral modification over the past 1-2 years who presents for thermal radiofrequency ablation of the right C2-3, C3, C4 medial branches addressing the right C2-3, C3-4 facet joints under fluoroscopic guidance. Review of Systems Review of Systems: Patient denies any new infectious, allergic, cardiopulmonary, neurologic or constitutional symptoms or changes in activity tolerance or exercise capacity including new or progressive SOB/CASILLAS, peripheral edema, productive cough, dysuria, nausea/vomiting, diarrhea, weight change, fevers/chills/night sweats, new or progressive neurologic deficit, cognitive or mood changes since last seen, except as documented in the HPI. All systems reviewed & are unremarkable except as noted in HPI and below PMFSH Past Medical History Medical History Multiple fractures of ribs of right side (08/15/21) right posterior lateral rib fractures 8, 9, 10 08/15/2021. ER 08/19/2021. Low magnesium level magnesium 1.9 on 06/30/2023 with low potassium 3.2 on 07/01/2023. Magnesium 2.2 on 02/23/2024. Partial small bowel obstruction Colon cancer screening Rectal polyps on 11/29/2021 with recheck in 5 years. Small bowel obstruction 09/08/2022 with resolution 09/11/2022. recurrence 06/27/2023 through 07/01/2023. Fall (on) (from) other stairs and steps, initial encounter GERD (gastroesophageal reflux disease) (~03/2022) Elevated liver transaminase level AST 47, ALT 36 on 08/24/2023. AST 17, ALT 17 on 02/23/2024. Nausea vomiting and diarrhea BMI 25.0-25.9,adult Mixed hyperlipidemia total cholesterol 233, triglycerides 238, HDL 54, LDL 141 with ratio of 4.3 on 10/24/2022. cholesterol 205, triglycerides 213, HDL 52, LDL 120, ratio 3.9 on 04/15/2023. Cholesterol 220, triglycerides 360, HDL 55, LDL 114 with ratio of 4.0 on 02/23/2024. Vitamin D deficiency, unspecified level at 36 on 04/17/2022. Level normal at 54 on 02/23/2024. Delayed gastric emptying Abnormal digestive system diagnostic imaging Hyponatremia SBO (small bowel obstruction) At low risk for fall Chronic neck pain X-ray of the C-spine on 07/10/2023 with moderate spo Partial small bowel obstruction Hospital discharge follow-up follow-up of small-bowel obstruction from 09/08/2022. Hypokalemia Potassium was low at 3.9 on 09/11/2022.Potassium normal at 4.3 With magnesium normal at 2.2 on 10/24/2022. Anemia Hemoglobin was low at 11.5 on 09/11/2022.Hemoglobin 13.8 with iron 104 with 34% saturation and ferritin 43 with vitamin B12 485 and folic acid 24 on 10/24/2022. Hemoglobin 13.8 with iron 98 with 32% saturation and ferritin 48 with vitamin B12 545 and folic acid 22.7 on 02/23/2024. Colon polyp, hyperplastic (11/29/21) rectal polyps 11/29/2021 with recheck in 5 years. COVID-19 (04/03/22) tested positive 04/04/2022. Paxlovid 04/05/2022. BMI 26.0-26.9,adult Breast cancer screening by mammogram Normal mammogram 07/11/2021. Normal mammogram 12/24/2023. Chronic anxiety Essential (primary) hypertension Contact dermatitis due to plant Secondary malignant neoplasm of unspecified lung Surgical History Surgical History Colon cancer metastasized to lung Lung metastasis resected in 2008, no further recurrence History of total colectomy Obstructing sigmoid colon cancer in 2001 and had a sigmoid colon resection with end colostomy and treated with chemotherapy. Colonoscopy a few months later showed a colon polyp and she had a subtotal colectomy in 2002 with ileorectal anastomosis. History of exploratory laparotomy 2013 ex lap with adhesiolysis for SBO Family History Family History Sibling Diabetes mellitus Patient's sister is in good health Mother Patient's mother is , Onset Age: 81 Family history of malignant neoplasm of breast Father Family history of cardiovascular disease, Onset Age: 67 Hypertension Acute myocardial infarction Social History Social History Social History: Surrogate medical decision maker: Rodri Paez, spouse. Code status: Full code. Smoking status: Never smoker Second hand tobacco smoke exposure: Yes Alcohol intake: never Substance use: never Substance use type: does not use Do You Feel Safe in your Home?: Yes Lack of Transportation: No Lack of Food: Never True Current Housing: I Have Housing Concerned About Future Housing: Decline to Answer Difficulty Paying Gas/Electric Bills: Decline to Answer Difficulty Paying for Meds: Decline to Answer Currently Unemployed: Decline to Answer Education: High School Diploma/GED Difficulty w/ Childcare or Family Care: Decline to Answer Living arrangements: with family Spiritual care concerns: No Meds Home Medications and Allergies Home Medications ?Medication ?Instructions ?Recorded ?Confirmed ?Type lysine 500 mg tablet (L-Lysine) 500 mg PO DAILY 02/24/19 02/01/25 History qudqltbi-[id number] 8 mg-folic 400 1 tablet PO DAILY 02/24/19 02/01/25 History mcg-K 50 mcg-lutein 300 mcg tablet (Centrum Silver Women) triamcinolone acetonide 55 mcg 1 spray intranasal DAILY 10/22/21 02/01/25 History nasal spray aerosol (Nasacort Allergy) cholecalciferol (vitamin D3) 50 2,000 unit PO DAILY 04/23/22 02/01/25 History mcg (2,000 unit) capsule cyclobenzaprine 5 mg tablet 5 mg PO BID PRN muscle spasm #60 02/12/24 02/01/25 Rx tabs bupropion HCl 150 mg 24 hr tablet, 150 mg PO QAM #90 tabs 04/05/24 02/01/25 Rx extended release (Wellbutrin XL) escitalopram oxalate 10 mg tablet 10 mg PO DAILY #90 tabs 04/05/24 02/01/25 Rx (Lexapro) pravastatin 40 mg tablet 40 mg PO QHS #90 tabs 04/05/24 02/01/25 Rx quetiapine 25 mg tablet (Seroquel) 25 mg PO QHS #90 tabs 05/21/24 02/01/25 Rx zinc 50 mg capsule 50 mg PO DAILY 09/07/24 02/01/25 History meloxicam 15 mg tablet 15 mg PO DAILY PRN pain #30 tabs 12/27/24 02/01/25 Rx Allergies Allergy/AdvReac Type Severity Reaction Status Date / Time metoclopramide (From Reglan) AdvReac Intermediate Muscle Verified 02/01/25 06:11 Spasms Vital Signs Vital Signs - 24 hr 02/01/25 06:12 Temperature 98.2 F Pulse Rate 61 Respiratory Rate 15 Blood Pressure 159/65 H Pulse Oximetry 97 Oxygen Delivery Room Air Exam Narrative: The patient's physical exam is essentially unchanged from prior examination on 12/21/2024. Specifically, patient demonstrates normal lung capacity, tidal volume and respiratory rate without wheezes, crackles, rales or rubs. Heart rate and rhythm are regular without murmurs, gallops or rubs. No JVD. Pulses 2+ globally without increasing peripheral edema. AAOx3 with no evidence of confusion, intoxication or altered mental state, NC/AT without acute distress or altered consciousness. Speech, cognition, mood, insight and judgment at baseline and within normal limits. Assessment and Plan Assessment and plan (1) Cervical spondylosis: Code(s): M47.812 - Spondylosis without myelopathy or radiculopathy, cervical region Status: Acute Assessment and Plan: Proceed as planned with thermal radiofrequency ablation of the right C2-3, C3, C4 medial branches addressing the right C2-3, C3-4 facet joints under fluoroscopic guidance. (2) Chronic neck pain: Code(s): M54.2 - Cervicalgia; G89.29 - Other chronic pain Status: Acute
--- NOTE | 2025-02-01 07:20 | WPDHPUPDATE1 ---
History and Physical Update Update Date/Time: 02/01/25 07:20 History and Physical has been reviewed, including an updated exam of the patient. There are NO changes in the patient's condition. Risks, benefits, and alternatives have been discussed and questions answered. Patient agrees to proceed with procedure.
--- NOTE | 2025-02-01 07:20 | W.PM.PROC2 ---
Procedure Note - Detailed Date of Procedure 02/01/25 Pre-op Diagnosis Cervical Spondylosis w/o Myelopathy or Radiculop. Post-op Diagnosis Same Procedure Performed Thermal Radiofrequency Ablation of the Right Cervical Medial Branches at C2-3, C3, C4 to ablate the Ipsilateral C2-3, C3-4 facet joints under Fluoroscopic Guidance (2 levels treated). Surgeon Ace Escalona MD [employer] Repairer None. Anesthesia Local (w/ IV Moderate Sedation) Description of Procedure INFORMED CONSENT: Risks, benefits and alternatives to the procedure were discussed in detail with the patient who expressed explicit understanding and consent to proceed. Patient was informed verbally and in written form regarding the risks associated with the procedure including the low risk of serious infection, bleeding/bruising, allergic reaction, nerve or organ injury, paralysis, procedural site pain or discomfort, worsening pain and/or mobility, failure to treat and/or disfigurement. The patient expressed explicit understanding and consent to proceed. All materials required for the procedure were available prior to procedure start. Site and side was marked prior to procedure and confirmed in the presence of the patient. PROCEDURE IN DETAIL: The patient was brought to the procedural suite and placed in the prone position with head stabilized with a horseshoe pillow and cervical ramp. Patient was made comfortable with use of pillows under the head/chest, hips and ankles. Skin overlying the injection site on the affected side(s) was prepared broadly with 10mL tinted ChloraPrep applicator and draped in a sterile manner. Strict aseptic technique was utilized throughout. The endplates of the vertebral bodies at the site(s) of interest were aligned in the AP view. Ipsilateral oblique angulation was utilized to optimize visualization of the pars interarticularis at each target site. Local anesthesia was established by infiltration with approximately 5 mL of 1% lidocaine via a 1-1/2 inch 27-gauge needle. An 18-gauge 100mm RF needle with curved 10mm active tip was advanced in the AP view until the needle tip contacted the periosteum of the pars interarticularis at the target site, right C2-3 parallel to the course of the targeted peripheral nerve branch. Lateral view was utilized to adjust and confirm the appropriate placement of the needle tip just anterior to the center point of the interarticularis, bisecting the distance between adjacent joint spaces. The appropriately-sized RF cannula was inserted into the RF needle and motor stimulation performed with no subjective or objective evidence of recruited muscle activity with stimulation up to 2.0 volts at a frequency of 2Hz. A 1.5 mL solution of 2.0% PF lidocaine was injected via the appropriately positioned RF cannula after negative aspiration. The grounding electrode was confirmed to be in place with good contact and functioning appropriately. After a 90s pause, lesioning was performed to 90 degrees centigrade for 90s ensuring lack of symptoms in the extremity throughout. Needle was withdrawn approximately 1-2 mm and rotated 180 degrees at each level. Lesioning was then repeated in a similar manner as above. The patient tolerated this well. No parasthesias were elicited. Needle was removed completely intact without difficulty. The same procedure was then repeated for all intended levels/ structures on the ipsilateral side, right C3, C4, with identical methodology, modified to compensate for new location, with similar results and no evidence of complication. Images were saved and documented in the patient's chart. The patient's skin was cleaned and sterile bandages applied. The patient tolerated the procedure well. The patient was transported to the recovery area in stable condition where they were observed for an appropriate amount of time prior to discharge, without evidence of complication. The patient was instructed to avoid excessive activity for the next 48 hours, including overhead work, reaching and device/computer usage. Showers only for 48 hours. They were instructed not to drive or operate heavy machinery for 24 hours. They are to monitor for severe headaches, fevers, chills, night sweats, erythema/swelling at the site or any other signs of infection, bleeding/bruising, bowel or bladder changes as well as new pain, weakness or numbness in the upper or lower extremity. Should they notice these changes, they are instructed to call our office immediately or report directly to the nearest Emergency Department if no answer or if after posted office hours. Complications None Condition Stable Disposition PACU [facility] Billing Surgery - Charge Forward: Surgery Billing
[2025-02-01] MEDS: ceFAZolin SODIUM 2 GM/20 ML SW SYRINGE IV PUSH (07:31)
[2025-02-01] MEDS: BUPivacaine HCL 0.5% 10 ML AMP (07:54)
[2025-02-01] MEDS: LIDOCAINE 2% PF LOCAL INJ 5 ML VIAL (07:56)
[2025-02-01 08:00] VITALS: BP 148/81; PULSE 65; RESP 12; O2SAT 99
--- NOTE | 2025-02-01 08:03 | WPDANESPN ---
Anes - Prog Note Post-Op Date/Time: 02/01/25 08:03 Cardiovascular status: normal Respiratory status: normal Airway patency: baseline Mental status: baseline Post-Op hydration status: normal Vital Signs: Last Vital Signs Temp 98.2 F 02/01/25 06:12 Pulse 61 02/01/25 06:12 Resp 15 02/01/25 06:12 BP 159/65 H 02/01/25 06:12 Pulse Ox 97 02/01/25 06:12 O2 Del Method Room Air 02/01/25 06:12 Pain Score (VAS): 0 I/O: Intake & Output 01/31/25 02/01/25 02/01/25 23:59 07:59 15:59 Intake Total 300 Balance 300 Post-procedural complaints: none Patient Feedback: Patient satisfied with anesthetic care.
[2025-02-01 08:14] VITALS: BP 149/80; PULSE 65; RESP 14; O2SAT 98
[2025-02-01 08:27] VITALS: BP 174/78; PULSE 59; RESP 16; O2SAT 98
[2025-02-01 08:49] VITALS: BP 157/90; PULSE 58; RESP 16; O2SAT 99
== END 2025-02-01 08:55 | disposition home or self-care (01) ==
PROVIDERS: PCP Family Medicine; Visit Provider Anesthesiology Pain Medicine
PROC: (CPT 64633; principal; 2025-02-01 07:30)
DX: M47.812 Spondylosis without myelopathy or radiculopathy, cervical region (principal); M54.2 Cervicalgia; G89.29 Other chronic pain
CPT/HCPCS: 64633; 64634; 99199